=== PATIENT | female | born 1935 | race Caucasian/White ===

== ENCOUNTER → 2017-07-09 09:21 | Outpatient (CLI) | payer MEDICARE, BC ==
[~2017-07-09] VITALS: Ht 160 cm; Wt 67.3 kg
--- NOTE | ~2017-07-09 | HEMODYNAMI ---
PATIENT:MUKESH ADEN MEDICAL RECORD: [id number] : 35 LOCATION:D.CAT ADMISSION DATE: 07/09/17 Generatedon:07/12/201713:49 Patient name: MUKESH ADEN Patient #: [id number] SSN: [id number] : 1935 Date of study: 07/09/2017 Page: Of Hemodynamic Procedure Report Patient Data Patient Demographics Procedure consent was obtained First Name: MUKESH Gender: Female Last Name: KEIKO : 1935 Middle Initial: S Age: 81 year(s) Patient #: [id number] Race: SSN: [id number] Additional ID: [id number] Contact details Address: [address] [place] [address] State: [place] City: [place] Zip code: [address] Past Medical History Allergies Allergen Reaction Date Comments Reported Sulfa drugs 01/18/2015 Other allergy 01/18/2015 cipro Other allergy 01/18/2015 niacin Amoxicillin 01/18/2015 Codeine 01/18/2015 Other allergy 11/17/2016 amoxicillin, cipro, codeine, Niacin, Sulfa Admission Admission Data Admission Date: 07/09/2017 Admission Time: 9:21 Procedure Procedure Types Cath Procedure Diagnostic Procedure [facility] w/Coronaries FFR/IVUS Intra-Coronary IVUS Initial PCI Procedure Coronary Stent Initial Miscellaneous Procedures Moderate Sedation up to 30 minutes Procedure Description Procedure Date Procedure Date: 07/09/2017 Procedure Start Time: 15:35 Procedure End Time: 16:03 Procedure Staff Name Function Douglas Mckeon RT Monitor Patti Lucas RN Nurse Sergei Squires MD Performing Physician Se Marshall RT Scrub Procedure Data Cath Procedure Fluoroscopy Diagnostic fluoroscopy Total fluoroscopy Time: 7.5 time: 7.5 min min Diagnostic fluoroscopy Total fluoroscopy dose: 881 dose: 881 mGy mGy Contrast Material Contrast Material Type Amount (ml) Isovue 300 128 Entry Location Entry Primary Successful Side Size Upsize Upsize Entry Closure Bermeo ccessful Closure Location (Fr) 1 (Fr) 2 (Fr) Remarks Device Remarks Radial Right 6 Fr Mechanical artery Short Compression Estimated blood loss: 10 ml Diagnostic catheters Device Type Used For End Catheter Placement Diagnostic Terumo 5Fr Procedure Bunnell 110cm catheter Procedure Complications No complications Procedure Medications Medication Administration Route Dosage Oxygen NC 2 l/min Lidocaine 2% added to field 20 Heparin Flush Bag added to field 2 bags (1000units/500ml NS) 0.9% NaCl I.V. 100 ml/hr Versed I.V. 1 mg Fentanyl I.V. 50 mcg Versed I.V. 0.5 mg Fentanyl I.V. 25 mcg Heparin Bolus I.V. 4000 units Fentanyl I.V. 25 mcg Radial Cocktail I.A. 1 syringe (Verapomil 2mg/Nitro 400mcg/Heparin 1500units) Versed I.V. 0.5 mg unlisted medication I.V. 20 mg Hemodynamics Rest Heart Rate: 56 (bpm) Snapshots Pre Cath Intra NCS Post Cath Vital Signs Time Heart Resp SPO2 etCO2 VP6bsci NIBP (mmHg) Rhythm Pain Sedation Rate (ipm) (%) (mmHg) (mmHg) Status Level (bpm) 15:27:35 56 19 97 0 0 141/79(0) NSR 0 (11) 10(A) , No pain 15:33:41 56 18 95 0 0 139/74(116) NSR 0 (11) 10(A) , No pain 15:37:57 58 20 94 0 0 118/59(101) NSR 0 (11) 9(A) , No pain 15:42:07 58 17 95 0 0 115/56(94) NSR 0 (11) 9(A) , No pain 15:46:15 65 14 94 0 0 127/61(109) NSR 0 (11) 9(A) , No pain 15:50:27 62 14 95 0 0 140/62(103) NSR 0 (11) 9(A) , No pain 15:54:41 63 16 96 0 0 132/66(113) NSR 0 (11) 9(A) , No pain 15:58:12 62 15 96 0 0 148/69(117) NSR 0 (11) 10(A) , No pain 16:02:26 63 14 96 0 0 156/78(128) NSR 0 (11) 10(A) , No pain Medications Time Medication Route Dose Verified Delivered Reason Note s Effectiveness by by 15:23:25 Oxygen NC 2 l/min Sergei Armstrong used for Shaw Lucas RN procedure 15:23:32 Lidocaine 2% added 20ml Sergei Mai for local to vial Shaw Squires MD anesthetic field 15:23:58 Heparin Flush added 2 bags Sergei Mai used for Bag to Shaw Squires MD procedure (1000units/500ml field NS) 15:24:07 0.9% NaCl I.V. 100 Sergei Armstrong Per physician ml/hr Shaw Lucas RN 15:32:54 Versed I.V. 1 mg Sergei Armstrong for sedation Shaw Lucas RN 15:32:58 Fentanyl I.V. 50 mcg Sergei Armstrong for sedation Shaw Lucas RN 15:36:26 Versed I.V. 0.5 mg Sergei Armstrong for sedation Shaw Lucas RN 15:36:31 Fentanyl I.V. 25 mcg Sergei Armstrong for sedation Shaw Lucas RN 15:37:08 Radial Cocktail I.A. 1 Sergei Mai for (Verapomil syringe Shaw Squires MD vasodilation 2mg/Nitro 400mcg/Hepari 15:40:16 Heparin Bolus I.V. 4000 Sergei Armstrong for veri fied units Shaw Lucas RN anticoagulation with dr squires 15:44:57 Fentanyl I.V. 25 mcg Sergei Armstrong for sedation Shaw Lucas RN 15:50:20 Versed I.V. 0.5 mg Sergei Armstrong for sedation Shaw Lucas RN 16:03:30 Toradol I.V. 20 mg Sergei Armstrong Per physician for Shaw Lucas RN sharp chest pains with deep breath Procedure Log Time Note 15:00:36 Patti Lucas RN sent for patient. Start room use. 15:12:37 Time tracking: Regular hours 15:12:41 Plan of Care:Hemodynamics will remain stable., Cardiac rhythm will remain stable., Comfort level will be maintained., Respiratory function will remain adequate., Patient/ family verbilizes understanding of procedure., Procedure tolerated without complication., Recovers from procedure without complications.. 15:14:10 Patient received from Pre/Post Procedure Room to CCL 1 Alert and oriented. Tansferred to table in Supine position. 15:14:11 Warm blankets applied, and carla hugger turned on for patient comfort. 15:14:12 Correct patient and procedure confirmed by team. 15:14:13 ECG and BP/O2 sat monitors applied to patient. 15:14:13 Signed procedure consent form obtained from patient. 15:23:25 Oxygen 2 l/min NC was administered by Patti Lucas RN; used for procedure; 15:23:32 Lidocaine 2% 20ml vial added to field was administered by Sergei Squires MD; for local anesthetic; 15:23:58 Heparin Flush Bag (1000units/500ml NS) 2 bags added to field was administered by Sergei Squires MD; used for procedure; 15:24:07 0.9% NaCl 100 ml/hr I.V. was administered by Patti Lucas RN; Per physician; 15:24:23 Vital chart was started 15:28:27 Baseline sample Acquired. 15:28:41 Rhythm: sinus bradycardia 15:28:42 Full Disclosure recording started 15:28:56 H&P Date Dictated: 07/07/2017 Within 30 days and on chart., H&P Addendum completed by physician on day of procedure. (MUST COMPLETE FOR ALL OUTPATIENTS). 15:28:57 Pre-op teaching completed and patient verbalized understanding. 15:28:57 Pre-procedure instructions explained to patient. 15:29:13 Family in patients room. 15:29:14 Patient NPO since Midnight. 15:29:16 Is the patient allergic to Iodine/contrast media? No. 15:29:19 Is patient on blood thinner?Yes 15:29:22 ACC The patient was administered the following blood thiners within the last 24 hours: ACCPlavix 15:29:27 Patient diabetic? No. 15:29:31 Previous problem with sedation/anesthesia? No ? 15:29:35 Snore? Yes 15:29:37 Sleep apnea? No 15:29:38 Opens mouth fully? Yes 15:29:38 Deviated septum? No 15:29:39 Sticks out tongue? Yes 15:29:43 Airway obstruction? No ? 15:29:46 Dentures? No ? 15:29:51 Pre procedure: right dorsailis pedis pulse 1+ Palpable, but thready & weak; easily obliterated 15:29:54 Modified Adelfo's test Ulnar < 7 seconds 15:29:56 Patient pain scale 0/10 ?. 15:30:04 IV patent on arrival in left forearm with 0.9% NaCl at [facility]. 15:30:07 Lab results completed and on chart. 15:30:10 Right Radial & Right Groin area was prepped with chlora-prep and draped in sterile fashion 15:30:12 Alarms reviewed by R. N. 15:30:13 Sharps counted by scrub and verified by R.N. 15:32:34 --------ALL STOP TIME OUT------ 15:32:35 Final Timeout: patient, procedure, and site verified with staff and physician. All members of the team are in agreement. 15:32:37 Right Radial & Right Groin site verified by team. 15:32:39 Physical assessment completed. ASA score P 2 - A patient with mild systemic disease as per Sergei Squires MD. 15:32:42 Sedation plan: IV Moderate Sedation Versed, Fentanyl 15::54 Versed 1 mg I.V. was administered by Patti Lucas RN; for sedation; 15:32:58 Fentanyl 50 mcg I.V. was administered by Patti Lucas RN; for sedation; 15:35:20 Zero performed for pressure channel P1 15:35:23 Zero performed for pressure channel P1 15:35:26 Zero performed for pressure channel P1 15:35:29 Zero performed for pressure channel P1 15:35:36 Procedure started. 15:35:42 Local anesthetic to right radial artery with Lidocaine 2% by Sergei Squires MD.INITIAL ACCESS ONLY 15:35:48 Use device set Radial Dx 15:35:50 Tegaderm 4 x 4 opened to sterile field. 15:35:51 Acist Hand Control opened to sterile field. 15:35:52 Acist Manifold opened to sterile field. 15:35:53 Medline Cath Pack opened to sterile field. 15:35:53 Acist Syringe opened to sterile field. 15:35:54 St Galdino 260cm J .035 wire opened to sterile field. 15:35:54 Terumo 6Fr Slender Glidesheath opened to sterile field. 15:35:54 Bag Decanter opened to sterile field. 15:35:55 MBrace Wrist Support opened to sterile field. 15:36:15 A 6 Fr Short sheath was inserted into the Right Radial artery 15:36:26 Versed 0.5 mg I.V. was administered by Patti Lucas RN; for sedation; 15:36:31 Fentanyl 25 mcg I.V. was administered by Patti Lucas RN; for sedation; 15:36:31 A Diagnostic Heliatekumo 5Fr Bunnell 110cm catheter was advanced over the wire and used for Procedure. 15:37:01 LV angiography performed. 15:37:03 LV gram done using COLEMAN 15:37:08 Radial Cocktail (Verapomil 2mg/Nitro 400mcg/Heparin 1500units) 1 syringe I.A. was administered by Sergei Squires MD; for vasodilation; 15:37:12 EF : 55 % 15:37:17 Injector settings: Ml/sec: 7, Volume: 15, 15:37:45 LCA angiography performed. 15:38:32 RCA angiography performed. 15:38:35 Catheter exchanged over wire. 15:38:37 Jaimes Whisper J 300cm 0.014 guide wire opened to sterile field. 15:38:37 Zarpo BasixCompak Inflation Kit opened to sterile field. 15:39:37 Clifton Frontier Eagleye IVUS Catheter opened to sterile field. 15:39:37 Medtronic Launcher 6Fr AR 1.0 guide catheter opened to sterile field. 15:39:48 6 Fr AR 1 guide catheter was inserted over the wire 15:40:16 Heparin Bolus 4000 units I.V. was administered by Patti Lucas RN; for anticoagulation; verified with dr squires 15:41:21 Whisper wire advanced. 15:42:59 Wire advanced across lesion. 15:43:20 IVUS catheter advanced over wire. 15:44:24 IVUS pass to RCA lesion performed. 15:44:27 IVUS catheter removed over wire. 15:44:50 Guide catheter removed. 15:44:50 Wire removed. 15:44:57 Fentanyl 25 mcg I.V. was administered by Patti Lucas RN; for sedation; 15:45:05 Cordis 6FR XBLAD 3.5 guide catheter opened to sterile field. 15:45:14 6 Fr XBLAD 3.5 guide catheter was inserted over the wire 15:45:47 Study PCI Site: [place] Diag1 has 85% stenosis. 15:46:02 ACC Pre-intervention GEOVANNA Flow is 3. 15:46:10 Whisper wire advanced. 15:48:08 Wire advanced across lesion. 15:48:40 Inflation number: 1 A Euphora 2.5 x 20 Balloon was prepped and advanced across the 1st Diag, then inflated to 7 MALACHI for 0:10 (min:sec). 15:49:06 Multiple inflations made at 7 Atms. 15:49:38 Balloon removed over the wire. 15:50:20 Versed 0.5 mg I.V. was administered by Patti Lucas RN; for sedation; 15:51:30 Biofreedom 2.5x24 stent expirations date: 09/14/2017 15:51:34 Inflation Number: 2 A Biofreedom 2.5 x 24 stent (No Cost Implant) was prepped and advanced across the 1st Diag. The stent was deployed at 13 MALACHI for 0:10 (min:sec). 15:51:53 Multiple inflations made at 17 Atms. 15:53:07 Stent catheter was removed intact over wire. 15:53:08 Wire removed. 15:53:09 Guide catheter removed. 15:54:52 Sheath removed intact; hemostasis achieved with Mechanical Compression to the Right Radial artery. 15:55:08 Terumo TR Band Standard opened to sterile field. 15:55:11 Procedure ended.(Physican Out) 15:55:45 Fluoroscopy time 07.50 minutes. 15:55:48 Fluoroscopy dose: 881 mGy 15:55:48 Flurop Dose total: 881 15:55:55 Contrast amount:Isovue 300 128ml. 15:55:57 Sharps counted by scrub and verified by R.N. 15:55:59 TR band inflated with 10cc of air. 15:56:01 Insertion/operative site no bleeding no hematoma. 15:56:02 Post Procedure Pulses reassessed and unchanged 15:56:05 Post-procedure physical assessment completed. ASA score P 2 - A patient with mild systemic disease as per Sergei Squires MD. 15:56:07 Post procedure rhythm: unchanged. 15:56:10 Estimated blood loss: 10 ml 15:56:12 Post procedure instruction explained to patient.Patient verbalizes understanding. 15:56:13 Patient needs reinforcement of post procedure teaching. 15:56:28 Procedure type changed to Cath procedure, Diagnostic procedure, LHC, LHC w/Coronaries, FFR/IVUS, Intra-Coronary IVUS Initial, PCI procedure, Coronary Stent Initial, Miscellaneous Procedures, Moderate Sedation up to 30 minutes 15:56:32 Procedure Complication : No complications 16:02:47 Procedure and supply charges have been captured, reviewed, submitted and are correct. 16:03:18 See physician's report for complete and final results. 16:03:18 Vital chart was stopped 16:03:25 Report given to Pre/Post Procedure Room. 16:03:28 Patient transfered to Pre/Post Procedure Room with Stretcher. 16:03:30 Toradol 20 mg I.V. was administered by Patti Lucas RN; Per physician; for sharp chest pains with deep breath 16:03:31 Full Disclosure recording stopped 16:03:31 Procedure ended. 16:03:35 End room use (Document Last) Intervention Summary Intervention Notes Time ActionType Lesion and Equipment Action# Pressure Duration Attributes Used 15:48:40 Inflate 1st Diag Euphora 1 7 00:10 balloon 2.5 x 20 Balloon 15:51:34 Place stent 1st Diag Biofreedom 2 13 00:10 2.5 x 24 stent (No Cost Implant) Device Usage Item Name Manufacture Quantity Catalog Hospital Part Current Minimal Lot# / Number Charge Number Stock Stock Serial# Code Tegaderm 4 1 [id number] [id number] [id number] 5 x 4 Acist Hand Acist 1 93602 407275 705327 967116 5 Control Medical Systems Inc Acist Acist 1 18413 880222 745133 480806 5 Manifold Medical Systems Inc Acist Acist 1 44435 185698 125862 465789 20 Syringe Medical Systems Inc Medline Cardinal 1 [id number] 010380 45999 851883 5 Cath Pack Health Bag Microtek 1 2001S [id number] 32435 053727 5 DecXL Marketing Inc. Terumo 6Fr Terumo 1 [id number] 758706 319067 389076 [address] Gal[address] St Galdino 1 [id number] 146424 895943 362233 30 260cm J .035 wire MBrace Advanced 1 140-0250-00 460856 70596 556429 5 Wrist Vascular Support Dynamics Diagnostic Terumo 1 77-5462 863242 078358 031967 5 Terumo 5Fr Bunnell 110cm catheter Merit Merit 1 [id number] 114830 499605 782147 15 BasixCompak Medical Inflation Kit Jaimes Jaimes 1 [id number] 497303 842529 327070 5 Whisper J Vascular 300cm 0.014 guide wire Medtronic Medtronic 1 [id number] 155537 32632 560564 1 Launcher 6Fr AR 1.0 guide catheter Clifton Clifton 1 [id number] 562345 727730 483810 8 Frontier Eagleye IVUS Catheter Cordis 6FR Cardinal 1 [id number] 781326 219171 596688 10 XBLAD 3.5 Health guide catheter Euphora 2.5 Medtronic 1 [id number] 927479 829443 726843 5 [id number] x 20 Balloon Biofreedom Biosensors 1 [facility]2-5024 985904 918160 5 [id number] 2.5 x 24 [place] SA stent (No Cost Implant) Terumo TR Terumo 1 [id number] 602368 916430 888246 40 Band Standard Signature Audit [place] Stage Time Signature Unsigned Intra-Procedure 07/09/2017 Douglas Mckeon RT(R) 4:03:53 PM RT(R) 07/09/2017 4:10:44 PM Intra-Procedure 07/09/2017 Douglas Mckeon RT(R) 4:13:54 PM RT(R) 07/12/2017 1:47:38 PM Intra-Procedure 07/12/2017 Douglas Mckeon 1:49:48 PM RT(R) Signatures Monitor : Douglas Mckeon RT Signature : Date : Time : [facility] [address] [place] [address]
[~2017-07-09 09:21] MED LIST: BAYER CHEWABLE81 MG PO; COZAAR100 MG PO; CRANBERRY475 MG PO; ESTRACE 0.5 MG0.5 MG PO; FLAXSEED OIL1000 MG PO; IMDUR60 MG PO; ISOSORBIDE MONO60 M1 PO; LIPITOR40 MG PO; MECLIZINE HCL12.5 MG PO; NORVASC5 MG PO; OCUVITE TABLET1 TA1 PO; PLAVIX75 MG PO; PROTONIX40 MG PO; RELAFEN500 MG PO; TENORMIN50 MG PO; TIROSINT75 MCG PO; TIROSINT88 MCG PO; VITAMIN D31000 UNI2 PO; ZOVIRAX800 MG PO
[2017-07-09 11:20] VITALS: BP 150/82; Ht 160 cm; Wt 67.3 kg
[2017-07-09 14:44] LABS: BASOPHILS 0.4 % (0-2); HEMOGLOBIN 12.6 g/dL (12-16); IMMATURE GRANULOCYTES 0.2 % (0-5); LYMPHOCYTES 43.9 % (15-50); MCH 31.8 pg (26.0-34.0); MCHC 34.1 g/dL (31.0-37.0); MCV 93.4 fL (80.0-100.0); MEAN PLATELET VOLUME 10.8 fL (7.4-10.4); NEUTROPHILS 41.5 % (40-80); PLATELET COUNT 141 10x3/uL (130-400); RBC 3.96 10x6/uL (4.00-5.40); WBC 4.5 10x3/uL (4.8-10.8)
[2017-07-09 14:45] LABS: CALC OSMOLALITY 283 mosm/kg (275-300); CALCIUM 8.9 mg/dL (8.5-10.1); CARBON DIOXIDE 28.6 mmol/L (21.0-32.0); CHLORIDE - SERUM 107 mmol/L (98-107); CKMB 0.1 U/L (0.0-3.6); CREATINE KINASE 80 UL (21-215); GLUCOSE 98 mg/dL (74-106); SODIUM 142 mmol/L (136-145); UREA NITROGEN 16 mg/dL (7-18); eGFR NON AFRICAN AMERICAN 56 mL/min (90-120)
[2017-07-09 14:46] LABS: TROPONIN-I < 0.017 ng/mL (0.000-0.060)
--- NOTE | 2017-07-09 16:30 | NUR ---
RIGHT WRIST- CDI, NO BLEEDING OR HEMATOMA AT SITE, AT SIDE, DENIES NEEDS, PAIN IN CHEST SOME BETTER.
--- NOTE | 2017-07-09 17:00 | NUR ---
NO CHANGES IN ASSESSMENT, DIET GURDEEP. AT SIDE
--- NOTE | 2017-07-09 19:55 | NUR ---
IV D'C WITH CATH TIP INTACT, WRITTEN AND VERBAL INSTRUCTIONS GIVEN TO PT AND -VERBAL UNDERSTANDING NOTED. TR BAND OFF- NO HEMATOMA OR BLEEDING AT SITE, BAND AID APPLIED AND BRACE REAPPLIED.
--- NOTE | 2017-07-16 09:42 | OP ---
PATIENT NAME: MUKESH ADEN MEDICAL RECORD: [id number] :35 LOCATION:D.CAT ADMISSION DATE: SURGEON: GREYSON SHERIFF MD DATE OF OPERATION: 07/09/2017 PROCEDURES: 1. PTCA stent LAD diagonal. 2. Intravascular ultrasound. 3. Left heart catheterization. 4. Selective coronary angiography. 5. Left ventriculogram. INDICATION: Chest pain compatible with angina. PROCEDURE IN DETAIL: After informed consent was obtained and after detailed explanation of risks, benefits as well as alternative therapies, the patient elected to proceed with angiogram and angioplasty. The right radial area was prepped and draped in normal sterile fashion. The right radial artery was cannulated via modified Seldinger technique with placement of 6-Indian sheath. All catheters exchanged through this sheath. FINDINGS: The left ventriculogram was performed in standard 30-degree COLEMAN view, reveals good cardiac wall motion throughout all segments. Overall ejection fraction estimated 60%. SELECTIVE CORONARY ANGIOGRAPHY: 1. Left main showed no significant angiographic disease. 2. Left anterior descending has previously placed stents. The LAD is widely patent. There is a stent in the diagonal, this has 85% in-stent restenosis. 3. Left circumflex has moderate irregularities, but no flow-limiting stenosis. 4. Right coronary has moderate irregularities, but no flow-limiting stenosis. PTCA STENT OF THE LAD DIAGONAL: The stent used was a 2.5 x 24 mm BioFreedom. Result was 0% residual stenosis. OVERALL IMPRESSION: Successful percutaneous transluminal coronary angioplasty stent of the left anterior descending diagonal going from 85% in-stent restenosis to 0% residual stenosis. This is a 2.5-mm vessel, 20 mm-lesion, GEOVANNA 3 flow before and after the intervention. TRANSINT:[id number] Voice Confirmation ID: [id number] DOCUMENT ID: [id number] GREYSON SHERIFF MD at 0942 CC: [id number] DICTATION DATE: 07/09/17 1605 BRAIDING OPERATOR: 07/09/17 2314 DEP CLI 07/09/17 [place] [id number]
== END | disposition home or self-care (01) ==
LOC: D.CATH 09:21
PROVIDERS: Internal Medicine Interventional Cardiology
DX: I25.119 Atherosclerotic heart disease of native coronary artery with unspecified angina pectoris (principal); I10 Essential (primary) hypertension; Z00.6 Encounter for examination for normal comparison and control in clinical research program; E78.5 Hyperlipidemia, unspecified; Z01.812 Encounter for preprocedural laboratory examination
CPT/HCPCS: 93458; 92978; C9600

== ENCOUNTER → 2017-08-19 17:07 | Outpatient (CLI) | payer MEDICARE, BC ==
[2017-07-09 11:20] VITALS: BMI 26.2
== END | disposition home or self-care (01) ==
LOC: D.MAMMO 08-04 14:45
DX: Z12.31 Encounter for screening mammogram for malignant neoplasm of breast (principal)

== ENCOUNTER 2018-04-10 09:21 | Inpatient (IN) | payer MEDICARE, BC ==
[~2018-04-10] VITALS: Ht 160 cm; Wt 68.6 kg
--- NOTE | ~2018-04-10 | HEMODYNAMI ---
PATIENT:MUKESH ADEN MEDICAL RECORD: [id number] : 35 LOCATION:[facility] D.2115 [facility]# [id number] ADMISSION DATE: 04/10/18 Generatedon:04/11/201816:04 Patient name: MUKESH ADEN Patient #: [id number] SSN: [id number] : 1935 Date of study: 04/11/2018 Page: Of Hemodynamic Procedure Report Patient Data Patient Demographics Procedure consent was obtained First Name: MUKESH Gender: Female Last Name: KEIKO : 1935 Middle Initial: S Age: 82 year(s) Patient #: [id number] Race: SSN: [id number] Additional ID: [id number] Contact details [address]: [address] [place] [address] State: [place] City: [place] Zip code: [address] Past Medical History Allergies Allergen Reaction Date Comments Reported Sulfa drugs 01/18/2015 Other allergy 01/18/2015 cipro Other allergy 01/18/2015 niacin Amoxicillin 01/18/2015 Codeine 01/18/2015 Other allergy 11/17/2016 amoxicillin, cipro, codeine, Niacin, Sulfa Other allergy 04/11/2018 cipro Admission Admission Data Admission Date: 04/10/2018 Admission Time: 12:40 Admit Source: Other Room #: D.2115 Lab Results Lab Result Date: 04/11/2018 Lab Result Time: 0:00 Biochemistry Name Units Result Min Max BUN mg/dl 16 --(---*)-- 7 18 Creatinine mg/dl 1 --(--*-)-- 0.6 1.3 Procedure Procedure Types Cath Procedure Diagnostic Procedure [facility] w/Coronaries FFR/IVUS Intra-Coronary IVUS Initial Procedure Description Procedure Date Procedure Date: 04/11/2018 Procedure Start Time: 15:40 Procedure End Time: 16:02 Procedure Staff Name Function Sergei Squires MD Performing Physician Abhi Andrea RT Monitor Cori Mayfield RT Scrub Armond Clifton RN Nurse Procedure Data Cath Procedure Fluoroscopy Diagnostic fluoroscopy Total fluoroscopy Time: 3.4 time: 3.4 min min Diagnostic fluoroscopy Total fluoroscopy dose: dose: 144.39 mGy 144.39 mGy Contrast Material Contrast Material Type Amount (ml) Isovue 300 56 Entry Location Entry Primary Successful Side Size Upsize Upsize Entry Closure Bermeo ccessful Closure Location (Fr) 1 (Fr) 2 (Fr) Remarks Device Remarks Radial Right 6 Fr Mechanical artery Short Compression Estimated blood loss: 10 ml Diagnostic catheters Device Type Used For End Catheter Placement DIAGNOSTIC AR 2 MOD 5 Fr Procedure catheter ([id number]) Procedure Medications Medication Administration Route Dosage 0.9% NaCl I.V. 100 ml/hr Oxygen etCO2 Nasal cannula 2 l/min Heparin Flush Bag added to field 2 bags (1000units/500ml NS) Lidocaine 2% added to field 20 Radial Cocktail added to field 1 syringe (Verapomil 2mg/Nitro 400mcg/Heparin 1500units) Versed I.V. 1 mg Fentanyl I.V. 50 mcg Radial Cocktail I.A. 1 syringe (Verapomil 2mg/Nitro 400mcg/Heparin 1500units) Heparin Bolus I.V. 4000 units Hemodynamics Rest Pre Cath Intra NCS Post Cath Vital Signs Time Heart Resp SPO2 etCO2 NIBP (mmHg) Rhythm Pain Sedation Rate (ipm) (%) (mmHg) Status Level (bpm) 15:27:50 72 20 92 21.7 137/67(90) NSR 0 (11) 10(A) , No pain 15:32:04 69 13 93 32.2 129/69(93) NSR 0 (11) 10(A) , No pain 15:36:12 68 13 94 37.4 139/74(99) NSR 0 (11) 10(A) , No pain 15:40:26 72 14 96 35.9 147/70(104) NSR 0 (11) 10(A) , No pain 15:44:34 70 15 92 38.1 106/62(86) NSR 0 (11) 10(A) , No pain 15:48:42 83 15 91 35.9 118/59(81) NSR 0 (11) 10(A) , No pain 15:53:31 78 14 92 38.9 137/69(101) NSR 0 (11) 10(A) , No pain 15:57:38 73 4 96 36.7 135/72(96) NSR 0 (11) 10(A) , No pain 16:01:48 72 13 92 37.4 137/69(98) NSR 0 (11) 10(A) , No pain Medications Time Medication Route Dose Verified Delivered Reason Not es Effectiveness by by 15:25:40 0.9% NaCl I.V. 100 Armond Armond Per physician ml/hr Elodia Clifton RN RN 15:25:49 Oxygen etCO2 2 l/min Armond Armond Per physician Nasal Elodia Clifton cannula RN RN 15:26:00 Heparin Flush added 2 bags Armond Armond used for Bag to Elodia Clifton procedure (1000units/500ml field RN RN NS) 15:26:13 Lidocaine 2% added 20ml Armond Armond for local to vial Elodia Clifton anesthetic field MENESES RN 15:26:25 Radial Cocktail added 1 Armond Armond used for (Verapomil to syringe Elodia Clifton procedure 2mg/Nitro field MENESES RN 400mcg/Heparin 1500units) 15:40:45 Versed I.V. 1 mg Armond Armond for sedation Elodia Cilfton RN RN 15:40:53 Fentanyl I.V. 50 mcg Armond Armond for sedation Elodia Clifton RN RN 15:45:44 Radial Cocktail I.A. 1 Armond Sergei for (Verapomil syringe Elodia Squires MD vasodilation 2mg/Nitro RN 400mcg/Heparin 1500units) 15:53:01 Heparin Bolus I.V. 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 14:55:26 Abhi KHAN(R) (CV) sent for patient. Start room use. 15:04:41 Patient received from Med II to CCL 3 Alert and oriented. Tansferred to table in Supine position. 15:04:42 Warm blankets applied, and carla hugger turned on for patient comfort. 15:04:43 Correct patient and procedure confirmed by team. 15:04:45 ECG and BP/O2 sat monitors applied to patient. 15:05:27 H&P Date Dictated: 04/10/2018 Within 30 days and on chart.. 15:05:30 Pre-procedure instructions explained to patient. 15:05:31 Pre-op teaching completed and patient verbalized understanding. 15:05:32 Family in patients room. 15:05:33 Patient NPO since Midnight. 15:05:48 Patient allergic to Other allergycipro 15:05:50 Is the patient allergic to Iodine/contrast media? No. 15:18:46 Patient diabetic? No. 15:18:50 Patient not . Patient is over age 55. 15:18:51 ----Pre-sedation anethsthesia assessment.---- 15:19:30 Previous problem with sedation/anesthesia? No ? 15:19:32 Snore? Yes 15:19:33 Sleep apnea? No 15:19:34 Deviated septum? No 15:19:35 Opens mouth fully? Yes 15:19:36 Sticks out tongue? Yes 15:19:40 Airway obstruction? No ? 15:19:47 Dentures? No ? 15:19:52 Pre procedure: right dorsailis pedis pulse 2+ Normal; easily identifiable; not easily obliterated 15:19:57 Patient pain scale 0/10 ?. 15:20:04 IV patent on arrival in left antecubital with 0.9% NaCl at O. 15:20:13 Right Radial & Right Groin area was prepped with chlora-prep and draped in sterile fashion 15:20:17 Alarms reviewed by R. N. 15:20:17 Sharps counted by scrub and verified by R.N. 15:20:38 Use device set Radial Dx or PCI 15:20:40 ACIST Syringe (72223) opened to sterile field. 15:20:41 Medline Cath Pack ([id number]) opened to sterile field. 15:20:42 Bag Decanter (2002S) opened to sterile field. 15:20:43 DIAGNOSTIC WIRE .035 260cm J wire (136269) opened to sterile field. 15:20:43 ACIST Hand Control (12615) opened to sterile field. 15:20:44 ACIST Manifold (63289) opened to sterile field. 15:20:45 Tegaderm 4 x 4 (1626W) opened to sterile field. 15:20:47 MBrace Wrist Support ([id number]) opened to sterile field. 15:20:50 SHEATH 6Fr Prelude Radial ([id number]) opened to sterile field. 15::59 Lab Result : BUN 16 mg/dl 15::59 Lab Result : Creatinine 1 mg/dl 15:22:15 Physician paged 15:25:19 Zero performed for pressure channel P1 15::40 0.9% NaCl 100 ml/hr I.V. was administered by Armond Clifton RN; Per physician; 15:25:49 Oxygen 2 l/min etCO2 Nasal cannula was administered by Armond Clifton RN; Per physician; 15:26:00 Heparin Flush Bag (1000units/500ml NS) 2 bags added to field was administered by Armond Clifton RN; used for procedure; 15::13 Lidocaine 2% 20ml vial added to field was administered by Armond Clifton RN; for local anesthetic; 15:26:25 Radial Cocktail (Verapomil 2mg/Nitro 400mcg/Heparin 1500units) 1 syringe added to field was administered by Armond Clifton RN; used for procedure; 15:26:40 Vital chart was started 15:33:49 Physician arrived 15:33:49 --------ALL STOP TIME OUT------ 15:33:50 Final Timeout: patient, procedure, and site verified with staff and physician. All members of the team are in agreement. 15:33:55 Right Radial & Right Groin site verified by team. 15:33:58 Physical assessment completed. ASA score P 2 - A patient with mild systemic disease as per Sergei Squires MD. 15:34:02 Sedation plan: IV Moderate Sedation Medication:Versed, Fentanyl 15:39:28 Procedure started. 15:39:29 Full Disclosure recording started 15:40:45 Versed 1 mg I.V. was administered by Armond Lorigan RN; for sedation; 15:40:53 Fentanyl 50 mcg I.V. was administered by Armond Clifton RN; for sedation; 15:40:53 Local anesthetic to right radial artery with Lidocaine 2% by Sergei Squires MD.INITIAL ACCESS ONLY 15:44:11 A 6 Fr Short sheath was inserted into the Right Radial artery 15:45:44 Radial Cocktail (Verapomil 2mg/Nitro 400mcg/Heparin 1500units) 1 syringe I.A. was administered by Sergei Squires MD; for vasodilation; 15:45:56 A DIAGNOSTIC AR 2 MOD 5 Fr catheter ([id number]) was advanced over the wire and used for Procedure. 15:46:31 LV hemodynamics recorded. 15:46:33 LV gram done using COLEMAN 15:46:44 EF : 60 % 15:46:51 RCA angiography performed. 15:46:53 Catheter removed. 15:47:28 GUIDE 6FR XBLAD 3.5 catheter ([id number]) opened to sterile field. 15:47:43 6 Fr XBLAD 3.5 guide catheter was inserted over the wire 15:49:09 LCA angiography performed. 15:51:14 Proceeding to intervention. 15:51:31 INFLATOR Merit BasixCompak (GW3969) opened to sterile field. 15:52:03 CHOICE PT Extra Support 182cm wire ([id number]) opened to sterile field. 15:52:10 [place] IVUS Catheter (82255N) opened to sterile field. 15:52:25 CHOICE wire advanced. 15:53:01 Heparin Bolus 4000 units I.V. was administered by Armond Clifton RN; for anticoagulation; 15:53:02 FFR/IVUS 15:53:02 IVUS catheter advanced over wire. 15:53:36 IVUS pass to Circ lesion performed. 15:53:38 IVUS catheter removed over wire. 15:54:02 Procedure type changed to Cath procedure, Diagnostic procedure, LHC, [facility] w/Coronaries, FFR/IVUS, Intra-Coronary IVUS Initial 15:55:37 CABG CONSULT 15:55:49 TR BAND Standard ([id number]) opened to sterile field. 15:56:06 Wire removed. 15:56:07 Guide catheter removed. 15:56:29 Sheath removed intact; hemostasis achieved with Mechanical Compression to the Right Radial artery. 15:56:34 Procedure ended.(Physican Out) 15:57:28 Fluoroscopy time 03.40 minutes. 15:57:34 Flurop Dose total: 144.39 15:57:34 Fluoroscopy dose: 144.39 mGy 15:57:40 Contrast amount:Isovue 300 56ml. 15:57:42 Sharps counted by scrub and verified by R.N. 15:58:46 TR band inflated with 14cc of air. 15:58:51 Insertion/operative site no bleeding no hematoma. 15:59:07 Post right radial artery:stable 16:00:08 Post-procedure physical assessment completed. ASA score P 2 - A patient with mild systemic disease as per Sergei Squires MD. 16:00:13 Post procedure rhythm: sinus rhythm 16:00:17 Estimated blood loss: 10 ml 16:00:19 Post procedure instruction explained to patient.Patient verbalizes understanding. 16:00:20 Patient needs reinforcement of post procedure teaching. 16:00:21 Procedure and supply charges have been captured, reviewed, submitted and are correct. 16:02:14 Vital chart was stopped 16:02:14 See physician's report for complete and final results. 16:02:17 Report given to PCU. 16:02:21 Patient transfered to PCU with Bed. 16:02:23 Procedure ended. 16:02:23 Full Disclosure recording stopped 16:02:27 End room use (Document Last) Device Usage Item Name Manufacture Quantity Catalog Number Hospital Part Current M inimal Lot# / Charge Number Stock Stock Serial# Code ACIST Syringe Acist 1 23879 030460 240137 237374 2 0 (27338) Medical Systems Inc Medline Cath Cardinal 1 [id number] 128092 49980 526779 5 Pack Health ([id number]) Bag Decanter Microtek 1 670734 61027 792941 5 () Medical Inc. DIAGNOSTIC WIRE St [place] 1 976599 116148 048624 533052 3 0 .035 260cm J wire (590430) ACIST Hand Acist 1 18400 856961 941298 897598 5 Control (06754) Medical Systems Inc ACIST Manifold Acist 1 19545 266290 171156 348151 5 (82329) Medical Systems Inc Tegaderm 4 x 4 3M 1 1626W 774822 405062 828756 5 (1626W) MBrace Wrist Advanced 1 140-0250-00 815518 12155 372227 5 Support Vascular (256710540) Dynamics SHEATH 6Fr Merit 1 [id number] 861687 802298 852082 5 Prelude Radial Medical ([id number]) DIAGNOSTIC AR 2 Cardinal 1 [id number] 086441 306843 332264 2 0 MOD 5 Fr Health catheter (276535C) GUIDE 6FR XBLAD Cardinal 1 13359389 248277 275138 648404 1 0 3.5 catheter Health (28088855) INFLATOR Merit Merit 1 JC0685 627988 372349 005462 1 5 Plain Vanilla Medical (HD3245) CHOICE PT Extra Baker 1 [id number] 602467 812924 643596 5 Support 182cm Scientific wire ([id number]) [place] 1 01141Z 367918 672941 026800 8 [place] IVUS Catheter (20306U) TR BAND Terumo 1 [id number] 717178 261552 730177 4 0 Standard ([id number]) Signature Audit [place] Stage Time Signature Unsigned Intra-Procedure 04/11/2018 Abhi Andrea 4:04:03 PM RT(R) (CV) Signatures Monitor : Abhi Andrea RT Signature : Date : Time : [facility] [address] [facility] [place] [address]
--- NOTE | ~2018-04-10 | OP ---
PATIENT NAME: MUKESH ADEN MEDICAL RECORD: [id number] :35 LOCATION:D.M2 D.2115 ADMISSION DATE:04/12/18 SURGEON: GREYSON SHERIFF MD DATE OF OPERATION: 04/11/2018 PROCEDURES: 1. Left heart catheterization. 2. Selective coronary angiography. 3. Left ventriculogram. 4. Intravascular ultrasound. INDICATION: Angina, unstable. DESCRIPTION OF PROCEDURE: After informed consent obtained and after a detailed explanation of risks, benefits as well as alternative therapies, the patient elected to proceed with angiogram and heart catheterization. The right radial area was prepped and draped in normal sterile fashion. Right radial artery was cannulated via modified Seldinger technique with placement of 6-Macanese sheath. All catheters exchanged through this sheath. FINDINGS: Left ventriculogram was performed in a standard 30-degree COLEMAN view, reveals good cardiac wall motion throughout all segments. Overall ejection fraction estimated 60%. SELECTIVE CORONARY ANGIOGRAPHY: 1. Left main is with no significant angiographic disease. 2. Left anterior descending has a 95% stenosis at the juncture of the LAD and second diagonal. The second diagonal has previously placed stents. There is 95% stenosis of this as well. 3. Left circumflex has moderate irregularities, but no flow-limiting stenosis. There was question of an ostial lesion in the circumflex; however, no significant stenosis confirmed by intravascular ultrasound. 4. The right coronary artery has moderate irregularities, but no flow-limiting stenosis. OVERALL IMPRESSION: A 95% stenosis of the LAD and diagonal, multiple previously placed stents that are in this area. At this time, consider bypass surgery. TRANSINT:[id number] Voice Confirmation ID: [id number] DOCUMENT ID: [id number] GREYSON SHERIFF MD at 1849 CC: [id number] DICTATION DATE: 04/11/18 1606 DIESEL MECHANIC CONSTRUCTION: 04/11/18 1655 ADM IN [place] [address] [place] [address]
--- NOTE | ~2018-04-10 | OP ---
PATIENT NAME: MUKESH ADEN MEDICAL RECORD: [id number] :35 LOCATION:[facility] D.CV03 ADMISSION DATE:04/12/18 SURGEON: DURAN WINKLER MD DATE OF OPERATION: 04/15/2018 SURGEON: Duran Winkler MD CLOTH WINDER: Stewart Camara MD ANESTHESIA: General endotracheal, Dr. Lundy. OPERATION PERFORMED: Coronary artery bypass utilizing left internal thoracic to left anterior descending and reverse saphenous vein graft to the second diagonal coronary artery. PREOPERATIVE DIAGNOSIS: Intermediate coronary syndrome with unstable angina. POSTOPERATIVE DIAGNOSIS: Intermediate coronary syndrome with unstable angina. INDICATION FOR OPERATION: Severe occlusive coronary artery disease with intermittent coronary syndrome. FINDINGS OF THE OPERATION: The left internal thoracic was satisfactory for grafting. The reverse saphenous vein segment was also adequate for grafting. The target vessels were small caliber; however, satisfactory for grafting. ESTIMATED BLOOD LOSS: Cell Saver was used. DESCRIPTION OF PROCEDURE: After informed consent and adequate preoperative medication evaluation, the patient was brought to the operating room, placed on the table in the supine position. After induction of general endotracheal anesthesia and application of appropriate monitoring devices, the chest, neck, abdomen, and both legs were prepped and draped in sterile field utilizing Betadine scrub, alcohol, and Betadine solution. A Betadine-impregnated drape was also used. Saphenous vein was harvested from the left leg and the right leg was inadequate for grafting. The vein was prepared and legs closed over drains utilizing 3-0 Vicryl and skin maureen. A median sternotomy incision was used and dissection carried down to the fascia. Hemostasis maintained with electrocautery. Sternum was divided. Innominate vein was identified and protected. Left internal thoracic was taken down and prepared for grafting. The patient was given a calculated dose of heparin, cannulated in standard fashion utilizing 1 aortic, one 2-stage cannula in atrium and inferior vena cava. The patient placed on cardiopulmonary bypass, cooled to 32 degrees centigrade. A cross clamp was placed proximal to the aortic cannula and the patient was given cardioplegic solution through the aortic root. The patient was given a warm induction and cold maintenance. The patient was given cold intermittent cardioplegic solution throughout the procedure, either through the grafts, the root or a combination of both. The first vessel to be grafted was the diagonal, was grafted end-to-side utilizing a running 7-0 Prolene suture. Grafts were measured back to the aorta and a proximal anastomosis fashioned utilizing running 6-0 Prolene suture. Next, left internal thoracic was brought through a hole in the pericardium and sutured to left anterior descending end-to-side utilizing a running 8-0 Prolene suture. Pedicle was attached to epicardium with 6-0 Prolene suture. All maneuvers to remove trapped air were performed. The patient was given warm cardioplegic reperfusion and controlled OPERATIVE REPORT [id number] MUKESH ADEN S reperfusion. The patient rewarmed to 37 degrees centigrade. Two atrial and 2 ventricular pacing wires were placed in the heart and brought through the epigastric area. The patient was weaned from cardiopulmonary bypass. After being stable off bypass, he was given calculated dose of protamine to reverse the heparin. Hemostasis was achieved. A #40 right angle and #36 chest tubes were brought in through the epigastric area and placed in mediastinum. A separate Nathan drainage tube was placed in the left hemithorax and connected to suction. The chest was again irrigated. Instrument count and sponge count were correct times 2. Chest closed in layers utilizing #7 wire on the sternum, #2 Vicryl on linea alba and pectoralis fascia. Subcutaneous tissue was approximated with 3-0 Vicryl and skin approximated with 3-0 subcuticular Vicryl. Sterile dressings were applied. The patient tolerated the procedure well and transferred to the CV ICU in satisfactory condition. TRANSINT:[id number] Voice Confirmation ID: [id number] DOCUMENT ID: [id number] DURAN WINKLER MD CC: [id number] DICTATION DATE: 04/15/18 1342 SOFTWARE SECURITY CONSULTANT: 04/15/18 1758 ADM IN [place] [id number] [place] [address]
--- NOTE | ~2018-04-10 | TEE ---
PATIENT:MUKESH ADEN MEDICAL RECORD: [id number] LOCATION:[place] [address] AGE OF PATIENT: 82 ADMISSION DATE: 04/12/18 SEX: F REFERRING PHYSICIAN: INTERPRETING PHYSICIAN: GREYSON SQUIRES MD TRANSESOPHAGEAL ECHOCARDIOGRAM Date: 04/15/18 [place]INT[place] CHARGE Y INDICATIONS: CABG PREMEDICATIONS: PATIENT'S RESPONSE PROCEDURE DOPPLER MEASUREMENTS: LVIT LA PA RA LVOT RVOT Asc. Ao AV Gradient Peak AV Mean AV Area MV Gradient Peak MV Mean MV Area INTERPRETATION: LVd: 3.6 cm LVs: 2.8 cm Doppler: 2-D: COLOR FLOW DOPPLER NORMAL SALINE STUDY: MISCELLANOUS: DIAGNOSIS: PLAN: Undercar Specialist:1 Dr. Squires Barrel Marker: Petr ALCAZAR COMMENTS: DATE OF SERVICE: PROCEDURE: Preop evaluation of valvular structures during coronary artery bypass graft surgery. FINDINGS: 1. Left ventricular chamber size is within normal limits. Left ventricular systolic function is normal. Overall ejection fraction estimated at 60%. 2. Left atrium, right atrium, and right ventricle chamber sizes are within TRANSESOPHAGEAL ECHOCARDIOGRAM REPORT [id number] MUKESH ADEN normal limits. 3. Valvular structures have normal structure and motion. 4. Doppler interrogation reveals only mild mitral regurgitation, mild tricuspid regurgitation, and mild aortic insufficiency. No other valvular insufficiency or stenosis. 5. No evidence of pericardial effusion or left ventricular thrombus. TRANSINT:[id number] Voice Confirmation ID: [id number] DOCUMENT ID: [id number] at 1218 CC: [id number] DICTATION DATE: 04/19/18918 PRESSFITTER: 04/19/182241 DIS IN 04/21/18 [place] [id number] [place] [id number]
--- NOTE | ~2018-04-10 | CN ---
PATIENT NAME:MUKESH ADEN MEDICAL RECORD: [id number] : 35 LOCATION:[facility] ADMIT DATE: 04/12/18 ACCOUNT: [id number] CONSULTING PHYSICIAN: KAIN CANTRELL MD REFERRING PHYSICIAN: GREYSON SHERIFF MD DATE OF CONSULTATION: 04/14/2018 DATE OF ADMISSION: 04/12/2018. REASON FOR CONSULTATION: Medical management. HISTORY OF PRESENT ILLNESS: The patient is an 82-year-old female with longstanding history of having arteriosclerotic heart disease. The patient had stated that approximately 10 days ago, she developed pain in the left upper arm, which resolved at night. Over the weekend, she developed substernal chest pain with arm pain. She presented to the Emergency Room for evaluation. She underwent cardiac catheterization and found to have stenosis from prior stent placement. It was felt she should undergo coronary artery bypass grafting. PAST MEDICAL HISTORY: Significant for having coronary artery bypass grafting approximately 20 years ago. She has also had numerous stents. She has had a hysterectomy, tonsillectomy. She has had hypothyroidism, hypertension, hyperlipidemia, rheumatoid arthritis. She had a bladder tuck times 2, cataract surgery. FAMILY HISTORY: Heart disease runs in her family, mother, father, sister. Mother at 85 years of age. Father at 65 years of age of coronary artery disease. ALLERGIES: She is allergic to AMOXICILLIN, CEFTIN, CIPRO, CODEINE, DOXYCYCLINE, GABAPENTIN, LEVAQUIN, NIACIN, SULFA, Z-CINDY. MEDICATIONS: Include amitriptyline 25 mg p.o. q.h.s., amlodipine 5 mg once a day, aspirin 81 mg once a day, Lipitor 40 mg once a day, carvedilol 6.25 b.i.d., estradiol 0.5 mg once a day, isosorbide mononitrate ER 60 mg once a day, levothyroxine 75 mcg once a day, losartan 100 mg once a day, pantoprazole 40 mg once a day, vitamin D 1000 international units once a day. REVIEW OF SYSTEMS: CONSTITUTIONAL: She denies any headaches, seizure or syncope. She denies change in visual or auditory acuity. PULMONARY: She denies any shortness of breath, cough, congestion, history of TB, asthma, or bronchitis. CARDIOVASCULAR: She has had no palpitation, PND or orthopnea. The patient has reported chest pain, but has not had any since her admission. GASTROINTESTINAL: No chronic nausea, vomiting, melena, or hematochezia. GENITOURINARY: No urgency, frequency, or dysuria. PHYSICAL EXAMINATION: VITAL SIGNS: Today, she is currently alert. She is oriented times 3. Her pulse is 64, respirations are 18, her blood pressure is 126/45. HEENT: Head is normocephalic. No lesions. Ears: TMs clear. Eyes: Pupils equal, round, reactive to light. Her extraocular movements are intact. Her nasal cavity, oral cavity, oropharynx clear. NECK: Supple. There is no adenopathy. CONSULT REPORT [id number] MUKESH ADEN HEART: Has a regular rate and rhythm without murmurs, gallops or rubs. LUNGS: Clear. ABDOMEN: Soft, bowel sounds positive. EXTREMITIES: Lower extremities have no edema. IMAGING: On admission, the patient's chest x-ray showed no acute cardiopulmonary disease. On the 04/12/2018, she had a carotid Doppler, which showed no evidence of significant stenosis. ASSESSMENT: Unstable angina, history of arteriosclerotic heart disease, numerous stentings, previous bypass surgery, hyperlipidemia, hypertension, and hypothyroidism. PLAN: It is felt the patient is stable and can proceed with coronary artery bypass grafting on Wednesday. Thanks for the consultation. We will follow with you. TRANSINT:[id number] Voice Confirmation ID: [id number] DOCUMENT ID: [id number] KAIN CANTRELL MD at 1447 CC: [id number] DICTATION DATE: 04/14/18708 SALON SALES CONSULTANT: 04/14/18 1214 ADM IN [place] [id number] [place] [id number]
[2018-04-10 10:08] LABS: BASOPHILS 0.4 % (0-2); EOSINOPHILS 9.3 % (0-7); HEMATOCRIT 38.3 % (36.0-48.0); HEMOGLOBIN 13.1 g/dL (12-16); IMMATURE GRANULOCYTES 0.2 % (0-5); LYMPHOCYTES 42.9 % (15-50); MCH 31.9 pg (26.0-34.0); MCHC 34.2 g/dL (31.0-37.0); MCV 93.2 fL (80.0-100.0); MEAN PLATELET VOLUME 9.7 fL (7.4-10.4); MONOCYTES 8.7 % (2-11); NEUTROPHILS 38.5 % (40-80); PLATELET COUNT 150 10x3/uL (130-400); RBC 4.11 10x6/uL (4.00-5.40); RDW 13.6 % (11.5-14.5); WBC 4.5 10x3/uL (4.8-10.8)
[2018-04-10 10:26] LABS: ALBUMIN 3.5 g/dL (3.4-5.0); ALKALINE PHOSPHATASE 78 U/L (46-116); ALT (SGPT) 18 U/L (10-68); BILIRUBIN - TOTAL 0.49 mg/dL (0.2-1.3); CALC OSMOLALITY 284 mosm/kg (275-300); CALCIUM 8.9 mg/dL (8.5-10.1); CARBON DIOXIDE 25.9 mmol/L (21.0-32.0); CHLORIDE - SERUM 106 mmol/L (98-107); CREATININE - SERUM 1.1 mg/dL (0.6-1.3); GLUCOSE 100 mg/dL (74-106); POTASSIUM - SERUM 4.2 mmol/L (3.5-5.1); PROTEIN - SERUM 7.4 g/dL (6.4-8.2); SODIUM 142 mmol/L (136-145); UREA NITROGEN 17 mg/dL (7-18); eGFR NON AFRICAN AMERICAN 50 mL/min (90-120)
[2018-04-10 10:27] LABS: INR 0.93 (0.85-1.17); PROTIME 12.1 SECONDS (11.6-15.0)
[2018-04-10 10:28] LABS: D-DIMER-QUANTITATIVE 0.64 ug/mLFEU (0.20-0.54)
[2018-04-10 10:34] LABS: CHOL - HDL RATIO 2.7 ratio (2.3-4.1); CHOLESTEROL, TOTAL 203 mg/dL (0-200); CKMB 0.3 U/L (0.0-3.6); CREATINE KINASE 73 UL (21-215); HDL CHOLESTEROL 74 mg/dL (32-96); LDL CHOLESTEROL 97 mg/dL (0-100); LDL-HDL RATIO 1.3 ratio (1.5-3.5); TRIGLYCERIDE 160 mg/dL (30-200)
[2018-04-10 10:35] LABS: TROPONIN-I < 0.017 ng/mL (0.000-0.060)
[2018-04-10 13:32] VITALS: BP 147/82; BMI 25.7
[2018-04-10] MEDS ORDERED: SYNTHROID88 MCG PO (13:47)
[2018-04-10] MEDS ORDERED: COREG12.5 MG PO (13:57)
[2018-04-10 15:39] VITALS: BP 151/64
[2018-04-10 20:00] VITALS: BP 141/70
[2018-04-11 04:00] VITALS: BP 127/68
[2018-04-11 05:29] LABS: BASOPHILS 0.4 % (0-2); HEMATOCRIT 36.4 % (36.0-48.0); HEMOGLOBIN 12.3 g/dL (12-16); IMMATURE GRANULOCYTES 0.2 % (0-5); LYMPHOCYTES 41.7 % (15-50); MCH 31.2 pg (26.0-34.0); MCHC 33.8 g/dL (31.0-37.0); MCV 92.4 fL (80.0-100.0); MEAN PLATELET VOLUME 9.8 fL (7.4-10.4); MONOCYTES 10.2 % (2-11); NEUTROPHILS 39.5 % (40-80); PLATELET COUNT 136 10x3/uL (130-400); RBC 3.94 10x6/uL (4.00-5.40); RDW 13.7 % (11.5-14.5); WBC 5.3 10x3/uL (4.8-10.8)
[2018-04-11 05:46] LABS: ANION GAP 13.5 mmol/L (8-16); CALCIUM 8.5 mg/dL (8.5-10.1); CARBON DIOXIDE 25.4 mmol/L (21.0-32.0); POTASSIUM - SERUM 3.9 mmol/L (3.5-5.1)
[2018-04-11 07:57] VITALS: BP 128/60
[2018-04-11 11:28] VITALS: BP 156/75
[2018-04-11 15:17] VITALS: BP 118/51
[2018-04-11 20:00] VITALS: BP 118/56
[2018-04-12] VITALS: BP 129/61
[2018-04-12 04:00] VITALS: BP 120/51
[2018-04-12 08:09] VITALS: BP 140/89
[2018-04-12 11:41] VITALS: BP 140/76
[2018-04-12 15:32] VITALS: BP 100/54
[2018-04-12 20:00] VITALS: BP 110/64
[2018-04-13] VITALS (7 sets, daily range): BP systolic 105–137; BP diastolic 53–72; Ht 160 cm; Wt 68.6 kg
[2018-04-14 04:36] VITALS: BP 118/77; BP 126/45
[2018-04-14 05:04] LABS: BASOPHILS 0.2 % (0-2); EOSINOPHILS 8.1 % (0-7); HEMATOCRIT 34.8 % (36.0-48.0); HEMOGLOBIN 11.9 g/dL (12-16); IMMATURE GRANULOCYTES 0.2 % (0-5); LYMPHOCYTES 48.1 % (15-50); MCH 31.4 pg (26.0-34.0); MCHC 34.2 g/dL (31.0-37.0); MCV 91.8 fL (80.0-100.0); MEAN PLATELET VOLUME 10.1 fL (7.4-10.4); MONOCYTES 9.5 % (2-11); NEUTROPHILS 33.9 % (40-80); PLATELET COUNT 154 10x3/uL (130-400); RBC 3.79 10x6/uL (4.00-5.40); RDW 13.8 % (11.5-14.5); WBC 4.8 10x3/uL (4.8-10.8)
[2018-04-14 05:11] LABS: APTT 28.9 SECONDS (22.8-39.4); INR 1.04 (0.85-1.17); PROTIME 13.2 SECONDS (11.6-15.0)
[2018-04-14 05:33] LABS: ALBUMIN 2.8 g/dL (3.4-5.0); ANION GAP 13.9 mmol/L (8-16); BILIRUBIN - TOTAL 0.3 mg/dL (0.2-1.3); CALCIUM 8.2 mg/dL (8.5-10.1); CARBON DIOXIDE 23.2 mmol/L (21.0-32.0); POTASSIUM - SERUM 4.1 mmol/L (3.5-5.1); PROTEIN - SERUM 6.3 g/dL (6.4-8.2); T4 THYROXIN - FREE 0.91 ng/dL (0.76-1.46); THYROID STIMULATING HORMONE 10.68 uIU/mL (0.36-3.74); URIC ACID 5.1 mg/dL (2.6-7.2)
[2018-04-14 07:33] LABS: APPEARANCE CLEAR (CLEAR); BILIRUBIN NEGATIVE (NEGATIVE); COLOR YELLOW (YELLOW); GLUCOSE NEGATIVE (NEGATIVE); KETONE NEGATIVE (NEGATIVE); NITRITE NEGATIVE (NEGATIVE); PROTEIN NEGATIVE (NEGATIVE); SPECIFIC GRAVITY 1.015 (1.005-1.020); UROBILINOGEN NORMAL (NORMAL)
[2018-04-14 07:35] LABS: BACTERIA FEW /hpf (NONE SEEN); EPITHELIAL CELLS 0-5 /hpf (0-5); WHITE CELLS - URINE 0-5 /hpf (0-5)
[2018-04-14 11:43] VITALS: BP 113/58
[2018-04-14 16:39] VITALS: BP 113/54
[2018-04-14 19:54] VITALS: BP 128/67
[2018-04-15] VITALS (42 sets, daily range): BP systolic 92–133; BP diastolic 47–68
[2018-04-15 08:41] LABS: PLT FUNCT.(P2Y12) PLAVIX 292 PRU (194-418)
[2018-04-15 13:17] LABS: HEMATOCRIT 35.8 % (36.0-48.0); HEMOGLOBIN 12.1 g/dL (12-16); MCH 29.9 pg (26.0-34.0); MCHC 33.8 g/dL (31.0-37.0); MEAN PLATELET VOLUME 10.3 fL (7.4-10.4); RBC 4.05 10x6/uL (4.00-5.40); RDW 15.3 % (11.5-14.5)
[2018-04-15 13:19] LABS: MCV 88.4 fL (80.0-100.0); PLATELET COUNT 75 10x3/uL (130-400)
[2018-04-15 13:24] LABS: CHLORIDE - SERUM 111 mmol/L (98-107); SODIUM 145 mmol/L (136-145)
[2018-04-15 13:26] LABS: CALC OSMOLALITY 295 mosm/kg (275-300); CREATININE - SERUM 0.7 mg/dL (0.6-1.3); GLUCOSE 207 mg/dL (74-106); POTASSIUM - SERUM 5.5 mmol/L (3.5-5.1); UREA NITROGEN 14 mg/dL (7-18); eGFR NON AFRICAN AMERICAN 85 mL/min (90-120)
[2018-04-15 13:32] LABS: CALCIUM 6.9 mg/dL (8.5-10.1); INR 1.52 (0.85-1.17); PROTIME 17.8 SECONDS (11.6-15.0)
[2018-04-15 14:07] LABS: PLATELET ESTIMATE DECREASED
[2018-04-16] VITALS (77 sets, daily range): BP systolic 85–126; BP diastolic 42–61
[2018-04-16 06:16] LABS: MCH 29.7 pg (26.0-34.0); MCHC 33.3 g/dL (31.0-37.0); MCV 89.2 fL (80.0-100.0); MEAN PLATELET VOLUME 10.3 fL (7.4-10.4); RDW 16.6 % (11.5-14.5); WBC 8.8 10x3/uL (4.8-10.8)
[2018-04-16 06:23] LABS: HEMATOCRIT 28.2 % (36.0-48.0); HEMOGLOBIN 9.4 g/dL (12-16); RBC 3.16 10x6/uL (4.00-5.40)
[2018-04-16 06:35] LABS: ALBUMIN 3.8 g/dL (3.4-5.0); BILIRUBIN - TOTAL 0.62 mg/dL (0.2-1.3); CALCIUM 7.9 mg/dL (8.5-10.1); CARBON DIOXIDE 26.3 mmol/L (21.0-32.0); PROTEIN - SERUM 5.6 g/dL (6.4-8.2)
[2018-04-16 06:36] LABS: CREATININE - SERUM 0.9 mg/dL (0.6-1.3); POTASSIUM - SERUM 4.3 mmol/L (3.5-5.1)
[2018-04-16 12:51] LABS: HEMATOCRIT 27.5 % (36.0-48.0); HEMOGLOBIN 9.2 g/dL (12-16)
[2018-04-17] VITALS (73 sets, daily range): BP systolic 89–134; BP diastolic 41–70
[2018-04-17 06:28] LABS: HEMATOCRIT 31.5 % (36.0-48.0); HEMOGLOBIN 10.2 g/dL (12-16); MCH 29.5 pg (26.0-34.0); MCHC 32.4 g/dL (31.0-37.0); RBC 3.46 10x6/uL (4.00-5.40); RDW 16.6 % (11.5-14.5)
[2018-04-17 06:59] LABS: ALBUMIN 3.2 g/dL (3.4-5.0); BILIRUBIN - TOTAL 0.58 mg/dL (0.2-1.3); CALCIUM 7.9 mg/dL (8.5-10.1); CARBON DIOXIDE 27.3 mmol/L (21.0-32.0); POTASSIUM - SERUM 4.3 mmol/L (3.5-5.1); PROTEIN - SERUM 5.7 g/dL (6.4-8.2)
[2018-04-17 07:05] LABS: CREATININE - SERUM 1.3 mg/dL (0.6-1.3)
[2018-04-18] VITALS (22 sets, daily range): BP systolic 94–141; BP diastolic 41–72
[2018-04-18 06:20] LABS: HEMATOCRIT 30.2 % (36.0-48.0); HEMOGLOBIN 9.9 g/dL (12-16); MCHC 32.8 g/dL (31.0-37.0); MCV 91.5 fL (80.0-100.0); MEAN PLATELET VOLUME 10.6 fL (7.4-10.4); RBC 3.3 10x6/uL (4.00-5.40); RDW 16.3 % (11.5-14.5)
[2018-04-18 06:24] LABS: WBC 6.5 10x3/uL (4.8-10.8)
[2018-04-18 06:47] LABS: ALBUMIN 2.7 g/dL (3.4-5.0); ANION GAP 9.3 mmol/L (8-16); BILIRUBIN - TOTAL 0.64 mg/dL (0.2-1.3); CALCIUM 7.9 mg/dL (8.5-10.1); CARBON DIOXIDE 28.9 mmol/L (21.0-32.0); POTASSIUM - SERUM 4.2 mmol/L (3.5-5.1); PROTEIN - SERUM 5.6 g/dL (6.4-8.2)
[2018-04-19] VITALS (25 sets, daily range): BP systolic 92–137; BP diastolic 43–62
[2018-04-19 05:22] LABS: HEMATOCRIT 29.5 % (36.0-48.0); HEMOGLOBIN 9.5 g/dL (12-16); MCH 29.6 pg (26.0-34.0); MCHC 32.2 g/dL (31.0-37.0); MCV 91.9 fL (80.0-100.0); MEAN PLATELET VOLUME 10.4 fL (7.4-10.4); RBC 3.21 10x6/uL (4.00-5.40); RDW 15.7 % (11.5-14.5); WBC 5.1 10x3/uL (4.8-10.8)
[2018-04-19 05:48] LABS: ALBUMIN 2.5 g/dL (3.4-5.0); ANION GAP 10.8 mmol/L (8-16); BILIRUBIN - TOTAL 0.7 mg/dL (0.2-1.3); CALCIUM 7.7 mg/dL (8.5-10.1); CARBON DIOXIDE 28.2 mmol/L (21.0-32.0); PROTEIN - SERUM 5.6 g/dL (6.4-8.2)
[2018-04-20] VITALS (25 sets, daily range): BP systolic 91–141; BP diastolic 47–81
[2018-04-20 06:06] LABS: HEMATOCRIT 28.8 % (36.0-48.0); HEMOGLOBIN 9.4 g/dL (12-16); MCH 29.7 pg (26.0-34.0); MCHC 32.6 g/dL (31.0-37.0); MCV 91.1 fL (80.0-100.0); MEAN PLATELET VOLUME 9.9 fL (7.4-10.4); RBC 3.16 10x6/uL (4.00-5.40); RDW 15.5 % (11.5-14.5); WBC 4.4 10x3/uL (4.8-10.8)
[2018-04-20 06:28] LABS: ALBUMIN 2.2 g/dL (3.4-5.0); ANION GAP 9.8 mmol/L (8-16); BILIRUBIN - TOTAL 0.44 mg/dL (0.2-1.3); CALCIUM 8.1 mg/dL (8.5-10.1); CREATININE - SERUM 0.9 mg/dL (0.6-1.3); POTASSIUM - SERUM 3.8 mmol/L (3.5-5.1); PROTEIN - SERUM 5.4 g/dL (6.4-8.2)
[2018-04-21] VITALS (11 sets, daily range): BP systolic 103–120; BP diastolic 43–60
[2018-04-21 06:01] LABS: HEMATOCRIT 28.1 % (36.0-48.0); HEMOGLOBIN 9.3 g/dL (12-16); MCHC 33.1 g/dL (31.0-37.0); MCV 90.6 fL (80.0-100.0); MEAN PLATELET VOLUME 9.9 fL (7.4-10.4); RBC 3.1 10x6/uL (4.00-5.40); RDW 15.2 % (11.5-14.5); WBC 4.6 10x3/uL (4.8-10.8)
[2018-04-21 06:23] LABS: ALBUMIN 2.2 g/dL (3.4-5.0); ANION GAP 11.2 mmol/L (8-16); BILIRUBIN - TOTAL 0.4 mg/dL (0.2-1.3); CALCIUM 7.9 mg/dL (8.5-10.1); CARBON DIOXIDE 27.6 mmol/L (21.0-32.0); POTASSIUM - SERUM 3.8 mmol/L (3.5-5.1); PROTEIN - SERUM 5.4 g/dL (6.4-8.2)
[2018-04-21] MEDS ORDERED: HEMOCYTE PLUS C1 CAP PO (08:55)
[2018-04-21] MEDS ORDERED: COREG 3.1253.125 MG PO (08:56)
[2018-04-21] MEDS ORDERED: CORDARONE200 MG PO (08:56)
[2018-04-21] MEDS ORDERED: COLACE100 MG PO (08:58)
[2018-04-21] MEDS ORDERED: HYDROCODON-ACE1 EAC7 PO (09:00)
== END 2018-04-21 10:58 | disposition home or self-care (01) | DRG 234 ==
LOC: D.ER 09:21 → D.M2 12:40 → OBSVTIME 12:40 → D.EDHOLD 12:40 → D.M2 13:00 → D.CVICU 04-12 12:35 → D.M2 04-12 12:35 → D.CVICU 04-15 12:12
PROVIDERS: Family Medicine; Internal Medicine Cardiovascular Disease; Internal Medicine Interventional Cardiology; Nurse Practitioner Family; Thoracic Surgery (Cardiothoracic Vascular Surgery)
PROC: B2151ZZ Fluoroscopy of Left Heart using Low Osmolar Contrast (ICD-10-PCS; 2018-04-11)
PROC: 4A023N7 Measurement of Cardiac Sampling and Pressure, Left Heart, Percutaneous Approach (ICD-10-PCS; 2018-04-11)
PROC: B240ZZ3 Ultrasonography of Single Coronary Artery, Intravascular (ICD-10-PCS; 2018-04-11)
PROC: B2111ZZ Fluoroscopy of Multiple Coronary Arteries using Low Osmolar Contrast (ICD-10-PCS; principal; 2018-04-11 09:00)
PROC: 02100ZC Bypass Coronary Artery, One Artery from Thoracic Artery, Open Approach (ICD-10-PCS; 2018-04-15)
PROC: 021009W Bypass Coronary Artery, One Artery from Aorta with Autologous Venous Tissue, Open Approach (ICD-10-PCS; 2018-04-15)
PROC: 06BQ0ZZ Excision of Left Saphenous Vein, Open Approach (ICD-10-PCS; 2018-04-15)
PROC: 5A1221Z Performance of Cardiac Output, Continuous (ICD-10-PCS; 2018-04-15)
PROC: B245ZZ4 Ultrasonography of Left Heart, Transesophageal (ICD-10-PCS; 2018-04-15)
DX: I25.110 Atherosclerotic heart disease of native coronary artery with unstable angina pectoris (principal); E78.5 Hyperlipidemia, unspecified; E03.9 Hypothyroidism, unspecified; I10 Essential (primary) hypertension; I95.9 Hypotension, unspecified; D64.9 Anemia, unspecified; Z86.73 Personal history of transient ischemic attack (TIA), and cerebral infarction without residual deficits

== ENCOUNTER → 2018-05-05 12:47 | Outpatient (CLI) | payer MEDICARE, BC ==
[2018-04-13 12:29] VITALS: BMI 25.3
[~2018-05-05 12:47] MED LIST changes: +COLACE100 MG PO; +CORDARONE200 MG PO; +COREG 3.1253.125 MG PO; +COREG12.5 MG PO; +HEMOCYTE PLUS C1 CAP PO; +HYDROCODON-ACE1 EAC7 PO; +SYNTHROID88 MCG PO
[2018-05-05 13:06] LABS: HEMOGLOBIN 11.3 g/dL (12-16); MCH 29.9 pg (26.0-34.0); MCHC 32.3 g/dL (31.0-37.0); MCV 92.6 fL (80.0-100.0); MEAN PLATELET VOLUME 9.4 fL (7.4-10.4); RBC 3.78 10x6/uL (4.00-5.40); RDW 15.2 % (11.5-14.5); WBC 6.2 10x3/uL (4.8-10.8)
[2018-05-05 13:22] LABS: ALBUMIN 3.3 g/dL (3.4-5.0); ANION GAP 10.7 mmol/L (8-16); BILIRUBIN - TOTAL 0.44 mg/dL (0.2-1.3); CALCIUM 9.4 mg/dL (8.5-10.1); CARBON DIOXIDE 29.5 mmol/L (21.0-32.0); CREATININE - SERUM 1.3 mg/dL (0.6-1.3); POTASSIUM - SERUM 4.2 mmol/L (3.5-5.1); PROTEIN - SERUM 7.3 g/dL (6.4-8.2)
== END | disposition home or self-care (01) ==
LOC: D.LAB 09:00 → D.RAD 09:30 → D.LAB 12:47
PROVIDERS: Internal Medicine Cardiovascular Disease
DX: J90 Pleural effusion, not elsewhere classified (principal); D64.9 Anemia, unspecified; I25.10 Atherosclerotic heart disease of native coronary artery without angina pectoris

== ENCOUNTER → 2018-09-05 13:17 | Outpatient (CLI) | payer MEDICARE, BC ==
[2018-04-13 12:29] VITALS: BMI 25.3
== END | disposition home or self-care (01) ==
LOC: D.CT 13:17
DX: R10.2 Pelvic and perineal pain (principal)

== ENCOUNTER 2018-12-19 08:00 | Outpatient (CLI) | payer MEDICARE, BC ==
[2018-04-13 12:29] VITALS: BMI 25.3
== END 2018-12-19 09:00 | disposition home or self-care (01) ==
LOC: D.MAMMO 08:00
DX: Z12.31 Encounter for screening mammogram for malignant neoplasm of breast (principal)

== ENCOUNTER 2019-01-06 09:01 | Outpatient (CLI) | payer MEDICARE, BC ==
[~2019-01-06] VITALS: Ht 160 cm; Wt 64.1 kg
--- NOTE | ~2019-01-06 | HEMODYNAMI ---
PATIENT:MUKESH ADEN MEDICAL RECORD: [id number] : 35 LOCATION:[facility] ADMISSION DATE: 01/06/19 Generatedon:01/06/201913:30 Patient name: MUKESH ADEN Patient #: [id number] SSN: [id number] : 1935 Date of study: 01/06/2019 Page: Of Hemodynamic Procedure Report Patient Data Patient Demographics Procedure consent was obtained First Name: MUKESH Gender: Female Last Name: KEIKO : 1935 Middle Initial: ANTONI Age: 83 year(s) Patient #: [id number] Race: SSN: [id number] Additional ID: [id number] Contact details [address]: [address] [place] [address] State: [place] City: [place] Zip code: [address] Past Medical History Allergies Allergen Reaction Date Comments Reported Sulfa drugs 01/18/2015 Other allergy 01/18/2015 cipro Other allergy 01/18/2015 niacin Amoxicillin 01/18/2015 Codeine 01/18/2015 Other allergy 11/17/2016 amoxicillin, cipro, codeine, Niacin, Sulfa Other allergy 04/11/2018 cipro Other allergy 01/06/2019 CIPRO, SULFA, CODEINE, NIACIN, AMOXICILLIN Admission Admission Data Admission Date: 01/06/2019 Admission Time: 9:01 Admit Source: Other Height (in.): 62.99 BSA: 1.67 (m2) Height (cm.): 160 BMI: 25 (kg/m2) Weight (lbs.): 141.1 Weight (kg.): 64 Lab Results Lab Result Date: 01/06/2019 Lab Result Time: 0:00 Biochemistry Name Units Result Min Max BUN mg/dl 22 --(----)-* 7 18 Creatinine mg/dl 0.8 --(-*--)-- 0.6 1.3 CBC Name Units Result Min Max Hemoglobin g/dl 12.7 -*(----)-- 13.5 17.5 Procedure Procedure Types Cath Procedure Diagnostic Procedure LHC LH w/Coronaries w/Grafts Sedation Charges Moderate Sedation up to 15 minutes PCI Procedure Coronary Stent Coronary Stent Initial Procedure Description Procedure Date Procedure Date: 01/06/2019 Procedure Start Time: 12:57 Procedure End Time: 13:27 Procedure Staff Name Function Sergei Squires MD Performing Physician Cori Mayfield RT Monitor Se Marshall RT Scrub Kristi Donis RN Nurse Zack Venegas RT Supervisor Contact Lens Procedure Data Cath Procedure Fluoroscopy Diagnostic fluoroscopy Total fluoroscopy Time: 9.2 time: 9.2 min min Diagnostic fluoroscopy Total fluoroscopy dose: 573 dose: 573 mGy mGy Contrast Material Contrast Material Type Amount (ml) Isovue 300 154 Entry Location Entry Primary Successful Side Size Upsize Upsize Entry Closure Succes sful Closure Location (Fr) 1 (Fr) 2 (Fr) Remarks Device Remarks Femoral Right 5 Fr 6 Fr Exoseal artery Short Estimated blood loss: 10 ml Diagnostic catheters Device Type Used For End Catheter Placement MULTIPACK Pigtail 5 Fr Procedure catheter MULTIPACK JL 4.0 5Fr Procedure catheter MULTIPACK 3DRC 5Fr Procedure catheter DIAGNOSTIC AR2 MOD 5 Fr Procedure catheter ([id number]) Procedure Complications No complications Procedure Medications Medication Administration Route Dosage 0.9% NaCl I.V. 100 ml/hr Oxygen etCO2 Nasal cannula 2 l/min Lidocaine 2% added to field 20 Heparin Flush Bag added to field 2 bags (1000units/500ml NS) Versed I.V. 2 mg Fentanyl I.V. 50 mcg Versed I.V. 2 mg Heparin Bolus I.V. 4000 units Integrilin (Bolus I.V. 5.6 ml 2mg/ml) Plavix P.O. 600 mg Versed I.V. 1 mg Fentanyl I.V. 50 mcg Hemodynamics Rest BSA: 1.67 (m2) HGB: 12.7 (g/dl) O2 Consumption: Estimated: 145.64 (ml/min) O2 Co nsumption indexed: Estimated:87.21 (ml/min/m) Heart Rate: 65 (bpm) Snapshots Pre Cath Intra NCS Post Cath Vital Signs Time Heart Resp SPO2 etCO2 NIBP (mmHg) Rhythm Pain Sedation Rate (ipm) (%) (mmHg) Status Level (bpm) 12:31:02 79 16 99 30.6 183/81(117) NSR 0 (11) 10(A) , No pain 12:35:28 66 11 98 29.8 158/71(94) NSR 0 (11) 10(A) , No pain 12:39:48 62 11 93 32.8 131/67(89) NSR 0 (11) 10(A) , No pain 12:44:02 66 13 96 26 131/64(91) NSR 0 (11) 10(A) , No pain 12:48:18 62 12 97 27.5 127/61(82) NSR 0 (11) 10(A) , No pain 12:52:35 62 12 98 26.7 128/57(79) NSR 0 (11) 10(A) , No pain 12:56:44 67 14 98 27.5 133/75(96) NSR 0 (11) 10(A) , No pain 13:00:58 65 12 98 25.2 130/65(88) NSR 0 (11) 10(A) , No pain 13:05:14 63 13 98 26.7 143/61(86) NSR 0 (11) 9(A) , No pain 13:09:34 62 12 98 27.5 131/62(91) NSR 0 (11) 9(A) , No pain 13:13:48 64 13 98 26.7 132/64(93) NSR 0 (11) 9(A) , No pain 13:19:00 70 16 100 26.7 161/76(112) NSR 0 (11) 9(A) , No pain 13:23:22 65 13 96 26.7 130/66(92) NSR 0 (11) 10(A) , No pain 13:27:36 64 14 96 26.7 136/65(85) NSR 0 (11) 10(A) , No pain Medications Time Medication Route Dose Verified Delivered Reason Notes Effectiveness by by 12:30:12 0.9% NaCl I.V. 100 Sergei Kristi used for ml/hr Shaw Donis air battle manager 12:30:19 Oxygen etCO2 2 Sergei Leona used for Nasal l/min Shaw Donis procedure cannula RN 12:30:25 Lidocaine 2% added 20ml Sergei Sergei for local to vial Shaw Squires MD anesthetic field 12:30:29 Heparin Flush added 2 Sergei Mai used for Bag to bags Shaw Squires MD procedure (1000units/500ml field NS) 12:56:46 Versed I.V. 2 mg Sergei Kristi for sedation Shaw Donis RN 12:56:55 Fentanyl I.V. 50 Sergei Kristi for sedation mcg Shaw Donis RN 13:01:40 Versed I.V. 2 mg Sergei Kristi for sedation Shaw Donis RN 13:06:44 Heparin Bolus I.V. 4000 Sergei Kristi for verif ied units Shaw Donis anticoagulation with Dr. ZAIRA Squires 13:13:21 Integrilin I.V. 5.6 Sergei Kristi for waste d (Bolus 2mg/ml) ml Shaw Donis anticoagulation 4.4 mL RN 13:14:41 Plavix P.O. 600 Sergei Caldwellyla for mg Shaw Donis antiplatelet RN therapy 13:18:57 Versed I.V. 1 mg Sergei Kristi for sedation Shaw Donis RN 13:19:02 Fentanyl I.V. 50 Sergei Kristi for sedation mcg Shaw Donis RN Procedure Log Time Note 12:14:00 Informed consent obtained and on chart 12:14:03 Admit Source: Other 12:14:26 Diagnostic Cath status Elective 12:14:27 Time tracking: Regular hours (M-F 7:00 - 5:00) 12:14:31 Plan of Care:Hemodynamics will remain stable., Cardiac rhythm will remain stable., Comfort level will be maintained., Respiratory function will remain adequate., Patient/ family verbilizes understanding of procedure., Procedure tolerated without complication., Recovers from procedure without complications.. 12:16:05 H&P Date Dictated: 01/06/2019 Within 30 days and on chart., H&P Addendum completed by physician on day of procedure. (MUST COMPLETE FOR ALL OUTPATIENTS). 12:16:10 Zack Venegas RT(R) sent for patient. Start room use. 12:25:10 Patient received from Pre/Post Procedure Room to CCL 1 Alert and oriented. Tansferred to table in Supine position. 12:25:11 Warm blankets applied, and carla hugger turned on for patient comfort. 12:25:12 Correct patient and procedure confirmed by team. 12:25:12 ECG and BP/O2 sat monitors applied to patient. 12:25:17 Pre-procedure instructions explained to patient. 12::18 Pre-op teaching completed and patient verbalized understanding. 12:25:19 Family in waiting room. 12:25:21 Patient NPO since Midnight. 12:29:50 Vital chart was started 12:30:12 0.9% NaCl 100 ml/hr I.V. was administered by Kristi Donis RN; used for procedure; 12::19 Oxygen 2 l/min etCO2 Nasal cannula was administered by Kristi Donis RN; used for procedure; 12::25 Lidocaine 2% 20ml vial added to field was administered by Sergei Squires MD; for local anesthetic; 12:30:29 Heparin Flush Bag (1000units/500ml NS) 2 bags added to field was administered by Sergei Squires MD; used for procedure; 12:38:15 Baseline sample Acquired. 12:38:23 Rhythm: sinus rhythm 12:38:24 Full Disclosure recording started 12:39:00 Patient allergic to Other allergyCIPRO, SULFA, CODEINE, NIACIN, AMOXICILLIN 12:39:05 Is patient on blood thinner?No 12:39:06 Patient diabetic? No. 12:39:14 Patient not . Patient is over age 55. 12:39:16 Previous problem with sedation/anesthesia? No ? 12:39:17 Snore? Yes 12:39:19 Sleep apnea? No 12:39:21 Deviated septum? No 12:39:22 Opens mouth fully? Yes 12:39:24 Sticks out tongue? Yes 12:39:27 Airway obstruction? No ? 12:39:29 Dentures? No ? 12:39:32 Pre procedure: right dorsailis pedis pulse 1+ Palpable, but thready & weak; easily obliterated 12:39:34 Patient pain scale 0/10 ?. 12:39:46 IV patent on arrival in left hand with 0.9% NaCl at [facility]. 12:40:10 Lab Result : BUN 22 mg/dl 12:40:10 Lab Result : Creatinine 0.8 mg/dl 12:40:10 Lab Result : Hemoglobin 12.7 g/dl 12:40:13 Lab results completed and on chart. 12:40:16 Right groin area was prepped with chlora-prep and draped in sterile fashion 12:40:17 Alarms reviewed by R. N. 12:40:18 Sharps counted by scrub and verified by R.N. 12:40:20 Use device set Femoral Dx 12:40:21 ACIST Syringe (85076) opened to sterile field. 12:40:22 Bag Decanter (2002S) opened to sterile field. 12:40:23 ACIST Hand Control (28864) opened to sterile field. 12:40:24 ACIST Manifold (61068) opened to sterile field. 12:40:24 Tegaderm 4 x 4 (1626W) opened to sterile field. 12:40:26 Medline Cath Pack ([id number]) opened to sterile field. 12:40:27 DIAGNOSTIC WIRE .035 260cm J wire (122171) opened to sterile field. 12:40:28 DIAGNOSTIC Multipack 5Fr catheter set (ZU7069) opened to sterile field. 12:40:29 SHEATH 5FR [place] (LED015) opened to sterile field. 12:44:04 Zero performed for pressure channel P1 12:46:53 Procedure type changed to Cath procedure, Diagnostic procedure, LHC, LHC w/Coronaries w/Grafts, Sedation Charges, Moderate Sedation up to 15 minutes, PCI procedure, Coronary Stent, Coronary Stent Initial 12:47:13 Patient Height : 62.99 inches 12:47:22 Patient Weight : 141.1 lbs 12:47:49 Baseline sample Acquired. 12:55:08 --------ALL STOP TIME OUT------ 12:55:08 Final Timeout: patient, procedure, and site verified with staff and physician. All members of the team are in agreement. 12:55:10 Right groin site verified by team. 12:55:14 Fire Safety Assessment: A--An alcohol-based skin anteseptic being used preoperatively., C--Open oxygen or nitrous oxide is being used., D--An ESU, laser, or fiber-optic light is being used. 12:55:16 Physical assessment completed. ASA score P 2 - A patient with mild systemic disease as per Sergei Squires MD. 12:55:19 Sedation plan: IV Moderate Sedation Medication:Versed, Fentanyl 12:56:46 Versed 2 mg I.V. was administered by Kristi Donis RN; for sedation; 12:56:55 Fentanyl 50 mcg I.V. was administered by Kristi Donis RN; for sedation; 12:57:26 Procedure started. 12:57:31 Local anesthetic to right femoral artery with Lidocaine 2% by Sergei Squires MD.INITIAL ACCESS ONLY 12:57:52 A 5 Fr sheath was inserted into the Right Femoral artery 12:58:00 A MULTIPACK Pigtail 5 Fr catheter was advanced over the wire and used for Procedure. 12:58:11 LV gram done using COLEMAN 12:58:16 RCA angiography performed. 12:58:29 EF : 55 % 12:58:31 Catheter removed. 12:58:45 A MULTIPACK JL 4.0 5Fr catheter was advanced over the wire and used for Procedure. 12:59:49 LCA angiography performed. 12:59:51 Catheter removed. 12:59:55 A MULTIPACK 3DRC 5Fr catheter was advanced over the wire and used for Procedure. 13:00:54 KRISHNAN to LAD angiography performed. 13:01:40 Versed 2 mg I.V. was administered by Kristi Donis RN; for sedation; 13:01:47 RCA angiography performed. 13:01:57 Catheter removed. 13:02:27 SHEATH 6FR [place] (LYP286) opened to sterile field. 13:02:28 INFLATOR Merit BasixCompak (FS4614) opened to sterile field. 13:02:28 CHOICE PT Extra Support 182cm wire ([id number]) opened to sterile field. 13:02:41 A DIAGNOSTIC AR2 MOD 5 Fr catheter ([id number]) was advanced over the wire and used for Procedure. 13:04:49 SVG to Diag occluded. 13:04:51 Catheter removed. 13:04:56 Sheath upsized to a 6 Fr Short. 13:06:24 6 Fr 3DRC SH guide catheter was inserted over the wire 13:06:44 Heparin Bolus 4000 units I.V. was administered by Kristi Donis RN; for anticoagulation; verified with Dr. Squires 13:06:56 Wire advanced across lesion. 13:07:34 IVUS catheter advanced over wire. 13:09:09 IVUS pass to RCA lesion performed. 13:09:11 IVUS catheter removed over wire. 13:09:21 Guide catheter removed. 13:09:24 GUIDE 6FR XB 3.5 catheter ([id number]) opened to sterile field. 13:09:25 FIELDER XT 190cm guidewire ([id number]) opened to sterile field. 13:09:57 6 Fr XB 3.5 guide catheter was inserted over the wire 13:11:26 FIELDER 190 wire advanced. 13:12:37 Wire advanced across lesion. 13:13:21 Integrilin (Bolus 2mg/ml) 5.6 ml I.V. was administered by Kristi Donis RN; for anticoagulation; wasted 4.4 mL 13:14:20 Inflate balloon Inflation number: 1 A EUPHORA 1.5 x 20 Balloon ([id number]) was prepped and advanced across the 1st Diag, then inflated to 13 MALACHI for 0:00 (min:sec). 13:14:33 Inflation number: 2 The EUPHORA 1.5 x 20 Balloon ([id number]) was reinflated across the 1st Diag, to 21 MALACHI for 0:10 (min:sec). 13:14:41 Plavix 600 mg P.O. was administered by Kristi Donis RN; for antiplatelet therapy; 13:14:42 Inflation number: 3 The EUPHORA 1.5 x 20 Balloon ([id number]) was reinflated across the 1st Diag, to 21 MALACHI for 0:00 (min:sec). 13:15:04 Balloon removed over the wire. 13:17:00 The CALEB RX 2.0 x 30 stent ([id number]) was advanced then removed because of failure to cross lesion 13:18:53 Inflate balloon Inflation number: 4 A EUPHORA 2.0 x 20 Balloon ([id number]) was prepped and advanced across the 1st Diag, then inflated to 13 MALACHI for 0:00 (min:sec). 13:18:57 Versed 1 mg I.V. was administered by Kristi Donis RN; for sedation; 13:19:02 Fentanyl 50 mcg I.V. was administered by Kristi Donis RN; for sedation; 13:19:07 Inflation number: 5 The EUPHORA 2.0 x 20 Balloon ([id number]) was reinflated across the 1st Diag, to 21 MALACHI for 0:10 (min:sec). 13:19:13 Balloon removed over the wire. 13:20:18 Place stent Inflation Number: 6 A CALEB RX 2.0 x 30 stent ([id number]) was prepped and advanced across the 1st Diag. The stent was deployed at 11 MALACHI for 0:10 (min:sec). 13:20:31 Inflation number: 7 The stent balloon was then re-inflated across the 1st Diag to 21 MALACHI for 0:10 (min:sec). 13:21:09 Balloon removed over the wire. 13:21:10 Wire removed. 13:21:10 Guide catheter removed. 13:21:30 EXOSEAL 6Fr (EX600) opened to sterile field. 13:21:39 Sheath removed intact; hemostasis achieved with Exoseal to the Right Femoral artery. 13:21:56 Procedure ended.(Physican Out) 13:22:49 Fluoroscopy time 09.20 minutes. 13:22:55 Flurop Dose total: 573 13:22:55 Fluoroscopy dose: 573 mGy 13:22:59 Contrast amount:Isovue 300 154ml. 13:23:00 Sharps counted by scrub and verified by R.N. 13:23:03 Post-op/insertion site Right Femoral artery dressed using a 4 x 4 and Tegaderm. 13:23:06 Post-procedure physical assessment completed. ASA score P 2 - A patient with mild systemic disease as per Sergei Squires MD. 13:23:09 Post procedure rhythm: sinus rhythm 13:23:12 Estimated blood loss: 10 ml 13:23:14 Post procedure instruction explained to patient.Patient verbalizes understanding. 13:23:14 Patient needs reinforcement of post procedure teaching. 13:27:13 Procedure and supply charges have been captured, reviewed, submitted and are correct. 13:27:15 Procedure Complication : No complications 13:27:19 Vital chart was stopped 13:27:20 See physician's report for complete and final results. 13:27:22 Report given to Pre/Post Procedure Room. 13:27:32 Patient transfered to Pre/Post Procedure Room with Bed. 13:27:34 Procedure ended. 13:27:34 Full Disclosure recording stopped 13:27:40 End room use (Document Last) Intervention Summary Intervention Notes Time ActionType Lesion and Equipment Used Action# Pressure Duration Attributes 13:14:20 Inflate 1st Diag EUPHORA 1.5 x 1 13 00:00 balloon 20 Balloon ([id number]) 13:14:33 Reinflate 1st Diag EUPHORA 1.5 x 2 21 00:10 balloon 20 Balloon ([id number]) 13:14:42 Reinflate 1st Diag EUPHORA 1.5 x 3 21 00:00 balloon 20 Balloon ([id number]) 13:17:00 Discard CALEB RX 2.0 x Stent 30 stent ([id number]) 13:18:53 Inflate 1st Diag EUPHORA 2.0 x 4 13 00:00 balloon 20 Balloon ([id number]) 13:19:07 Reinflate 1st Diag EUPHORA 2.0 x 5 21 00:10 balloon 20 Balloon ([id number]) 13:20:18 Place stent 1st Diag CALBE RX 2.0 x 6 11 00:10 30 stent ([id number]) 13:20:31 Reinflate 1st Diag CALEB RX 2.0 x 7 21 00:10 stent 30 stent balloon ([id number]) Device Usage Item Name Manufacture Quantity Catalog Number Hospital Part Current M inimal Lot# / Charge Number Stock Stock Serial# Code ACIST Syringe Acist 1 84581 153532 016822 712276 2 0 (82331) Medical Systems Inc Bag Decanter Microtek 1 2001S 191786 70311 072840 5 (2001S) Medical Inc. ACIST Hand Acist 1 76777 080161 114519 605611 5 Control Medical (72015) Systems Inc ACIST Manifold Acist 1 14019 585493 845543 086641 5 (67423) Medical Systems Inc Tegaderm 4 x 4 3M 1 1626W 875158 876746 594879 5 (1626W) Medline Cath Medline 1 [id number] 249798 58944 061105 5 Pack ([id number]) DIAGNOSTIC St Gal[place] 1 034854 498540 829011 837109 3 0 WIRE .035 260cm J wire (761375) DIAGNOSTIC Cardinal 1 JR8777 311942 19747 166028 3 0 Multipack 5Fr Health catheter set (TF5464) SHEATH 5FR Terumo 1 SZL221 430527 978930 232625 5 [place] (EGL493) MULTIPACK Cardinal 1 470052 5 Pigtail 5 Fr Health catheter MULTIPACK JL Cardinal 1 228683 5 4.0 5Fr Health catheter MULTIPACK 3DRC Cardinal 1 767930 5 5Fr catheter Health DIAGNOSTIC AR2 Cardinal 1 899216N 501092 930705 189472 2 0 MOD 5 Fr Health catheter (984933G) SHEATH 6FR Terumo 1 IDY948 200693 153055 638021 4 0 [place] (THZ449) INFLATOR Merit Merit 1 YU8065 581890 033939 776162 1 5 TEVIZZ Medical (LQ6710) CHOICE PT [place] 1 [id number] 752650 565898 722167 5 Extra Support Scientific 182cm wire ([id number]) GUIDE 6FR XB Cardinal 1 [id number] 823985 901947 552845 2 3.5 catheter Health (54295588) FIELDER XT Jaimes 1 [id number] 913733 78157 344473 5 190cm Vascular guidewire ([id number]) EUPHORA 1.5 x Medtronic 1 [id number] 736743 285530 598424 5 [id number] 20 Balloon ([id number]) CALEB RX 2.0 x Medtronic 1 [id number] 457135 9654148 065086 5 [id number] 30 stent ([id number]) EUPHORA 2.0 x Medtronic 1 [id number] 774003 262135 937542 5 [id number] 20 Balloon ([id number]) EXOSEAL 6Fr Cardinal 1 EX600 622350 670738 197290 1 0 (EX600) Health Signature Audit [place] Stage Time Signature Unsigned Intra-Procedure 01/06/2019 Cori Mayfield 1:29:58 PM RT(R) Signatures Monitor : Cori Mayfield Signature : RT Date : Time : [place] [id number] [place] [address]
[2019-01-06 09:27] VITALS: BP 175/85; Ht 160 cm; Wt 64.1 kg
[2019-01-06 10:02] LABS: HEMATOCRIT 37.7 % (36.0-48.0); HEMOGLOBIN 12.7 g/dL (12-16); LYMPHOCYTES 44.6 % (15-50); MCH 31.2 pg (26.0-34.0); MCHC 33.7 g/dL (31.0-37.0); MCV 92.6 fL (80.0-100.0); MEAN PLATELET VOLUME 9.8 fL (7.4-10.4); NEUTROPHILS 47.8 % (40-80); RBC 4.07 10x6/uL (4.00-5.40); RDW 13.2 % (11.5-14.5)
[2019-01-06 10:03] LABS: PLATELET COUNT 135 10x3/uL (130-400)
[2019-01-06 10:05] LABS: ANION GAP 14.7 mmol/L (8-16); CALCIUM 8.6 mg/dL (8.5-10.1); CARBON DIOXIDE 24.5 mmol/L (21.0-32.0); CREATININE - SERUM 0.8 mg/dL (0.6-1.3); POTASSIUM - SERUM 4.2 mmol/L (3.5-5.1)
[2019-01-06] MEDS ORDERED: PLAVIX75 MG PO (13:32)
--- NOTE | 2019-01-06 13:55 | NUR ---
2L NC, NO RESP DISTRESS. RIGHT GROIN 6F EXOSEAL CDI, NO BLEEDING OR HEMATOMA NOTED. NO C/O PAIN OR NAUSEA. VSS. FAMILY AT BEDSIDE, CALL LIGHT WITHIN REACH.
--- NOTE | 2019-01-06 14:25 | NUR ---
RESTING QUIETLY WITH EYES CLOSED. RIGHT GROIN 6F EXOSEAL CDI, NO BLEEDING OR HEMATOMA NOTED. DENIES ANY NEEDS OR C/O. VSS. WILL CONTINUE TO MONITOR.
--- NOTE | 2019-01-06 14:40 | NUR ---
CONTINUES TO REST COMFORTABLY. RIGHT GROIN 6F EXOSEAL CDI, NO BLEEDING OR HEMATOMA NOTED. DENIES ANY C/O AT THIS TIME. VSS. WILL CONTINUE TO MONITOR.
--- NOTE | 2019-01-06 15:10 | NUR ---
2L NC WITH NO RESP DISTRESS. RIGHT GROIN 6F EXOSEAL CDI, NO BLEEDING OR HEMATOMA NOTED. NO NEEDS VOICED. VSS. CALL LIGHT WITHIN REACH.
--- NOTE | 2019-01-06 16:10 | NUR ---
VOIDED 600CC ONTO BEDPAN. RIGHT GROIN 6F EXOSEAL CDI, NO BLEEDING OR HEMATOMA NOTED. NO C/O PAIN OR NAUSEA AT THIS TIME. CALL LIGHT WITHIN REACH.
--- NOTE | 2019-01-06 16:46 | NUR ---
HOB ELEVATED 30 DEGREES. RIGHT GROIN 6F EXOSEAL CDI, NO BLEEDING OR HEMATOMA NOTED. SIPPING ON DRINK AND EATING SANDWICH WITH NO C/O NAUSEA. VSS. WILL CONTINUE TO MONITOR.
--- NOTE | 2019-01-06 17:10 | NUR ---
LEFT PIV D/C'D WITH CATHETER INTACT, BAND AID TO SITE. UP TO BEDSIDE TO GET DRESSED.
--- NOTE | 2019-01-06 17:20 | NUR ---
DISCHARGE INSTRUCTIONS ALONG WITH PLAVIX PRESCRIPTION GIVEN, VERBALIZED UNDERSTANDING.
--- NOTE | 2019-01-06 17:30 | NUR ---
TAKEN OUT VIA WHEELCHAIR BY CATH STAMPING PRESS OPERATOR. LEFT FACILITY WITH FAMILY AND ALL PERSONAL BELONGINGS.
--- NOTE | 2019-01-10 10:45 | OP ---
PATIENT NAME: MUKESH ADEN MEDICAL RECORD: [id number] :35 LOCATION:D.CAT ADMISSION DATE: SURGEON: GREYSON SHERIFF MD DATE OF OPERATION: 01/06/2019 PROCEDURES: 1. PTCA stent LAD diagonal. 2. Left heart catheterization. 3. Selective coronary angiography. 4. Vein graft angiography. 5. KRISHNAN angiography. 6. Intravascular ultrasound. INDICATION: Angina and coronary artery disease. PROCEDURE IN DETAIL: After informed consent was obtained and after a detailed description of the risks, benefits as well as alternative therapies, the patient elected to proceed with angiogram and angioplasty. The right femoral area was prepped and draped in normal sterile fashion. Right femoral artery was cannulated via modified Seldinger technique with placement of 6-[place] sheath. All catheters exchanged through this sheath. FINDINGS: Left ventriculogram was performed in standard 30-degree COLEMAN view, reveals good cardiac wall motion throughout all segments. Overall ejection fraction estimated 60%. SELECTIVE CORONARY ANGIOGRAPHY: 1. Left main showed no significant angiographic disease. 2. Left anterior descending has a stent in the LAD diagonal. It is 95% in-stent restenosis followed by 95% stenosis just after the previous stent. 3. Vein graft to the diagonal was closed. 4. Left anterior descending has 90% stenosis in the mid vessel. 5. KRISHNAN to the LAD is widely patent. Distal LAD is widely patent. 6. The left circumflex has mild irregularities, but no flow-limiting stenosis. 7. The right coronary has a questionable stenosis at the ostium; however, intravascular ultrasound revealed that this is no significant disease. PTCA STENT OF THE LAD DIAGONAL: The stent used is a 2.0 x 30 mm Gary. Result was 0% residual stenosis. OVERALL IMPRESSION: Successful percutaneous transluminal angioplasty stent of the left anterior descending diagonal going from 95% initial stenosis to 0% residual. TRANSINT:[id number] Voice Confirmation ID: [id number] DOCUMENT ID: [id number] GREYSON SHERIFF MD at 1045 CC: [id number] DICTATION DATE: 01/06/19 1327 UNDERGROUND BOLTING MACHINE OPERATOR: 01/06/19 1422 DEP CLI 01/06/19 [place] [id number]
== END 2019-01-06 17:30 | disposition home or self-care (01) ==
LOC: D.CATH 09:01
PROVIDERS: Internal Medicine Interventional Cardiology
DX: I25.119 Atherosclerotic heart disease of native coronary artery with unspecified angina pectoris (principal); I25.719 Atherosclerosis of autologous vein coronary artery bypass graft(s) with unspecified angina pectoris; T82.855A Stenosis of coronary artery stent, initial encounter; Z01.812 Encounter for preprocedural laboratory examination
CPT/HCPCS: 93459; 92978; C9600

== ENCOUNTER 2019-01-24 12:35 | Observation (INO) | payer MEDICARE, BC ==
[~2019-01-24] VITALS: Ht 160 cm; Wt 64.1 kg
[2019-01-24] VITALS (7 sets, daily range): BP systolic 89–166; BP diastolic 61–90; BMI 25.0
--- NOTE | 2019-01-24 13:25 | NUR ---
REASSESSED PT CP/ DISCOMFORT AND PT REFUSED 2 ND NITRO AT THIS TIME.
[2019-01-24 13:31] LABS: BASOPHILS 0.3 % (0-2); EOSINOPHILS 5.7 % (0-7); HEMATOCRIT 39.3 % (36.0-48.0); HEMOGLOBIN 12.9 g/dL (12-16); IMMATURE GRANULOCYTES 0.2 % (0-5); LYMPHOCYTES 41.1 % (15-50); MCH 31.2 pg (26.0-34.0); MCHC 32.8 g/dL (31.0-37.0); MCV 95.2 fL (80.0-100.0); MEAN PLATELET VOLUME 9.9 fL (7.4-10.4); MONOCYTES 5.5 % (2-11); NEUTROPHILS 47.2 % (40-80); PLATELET COUNT 151 10x3/uL (130-400); RBC 4.13 10x6/uL (4.00-5.40); RDW 13.7 % (11.5-14.5); WBC 5.8 10x3/uL (4.8-10.8)
[2019-01-24 13:45] LABS: INR 1.03 (0.85-1.17)
--- NOTE | 2019-01-24 13:45 | NUR ---
ASSISTED PT WITH AMBULATING TO RESTROOM. WARM BLANKET PROVIDED, PT STABLE AT THIS TIME.
[2019-01-24 13:49] LABS: ALBUMIN 3.7 g/dL (3.4-5.0); ALKALINE PHOSPHATASE 106 U/L (46-116); ALT (SGPT) 19 U/L (10-68); BILIRUBIN - TOTAL 0.44 mg/dL (0.2-1.3); CALC OSMOLALITY 287 mosm/kg (275-300); CARBON DIOXIDE 26.7 mmol/L (21.0-32.0); CHLORIDE - SERUM 105 mmol/L (98-107); CREATININE - SERUM 0.9 mg/dL (0.6-1.3); GLUCOSE 101 mg/dL (74-106); POTASSIUM - SERUM 4.4 mmol/L (3.5-5.1); PROTEIN - SERUM 7.2 g/dL (6.4-8.2); SODIUM 143 mmol/L (136-145); UREA NITROGEN 20 mg/dL (7-18); eGFR NON AFRICAN AMERICAN 63 mL/min (90-120)
[2019-01-24 14:03] LABS: CKMB 0.8 U/L (0.0-3.6); CREATINE KINASE 66 UL (21-215); MAGNESIUM - SERUM 2.2 mg/dL (1.8-2.4)
[2019-01-24 14:05] LABS: TROPONIN-I < 0.017 ng/mL (0.000-0.060)
--- NOTE | 2019-01-24 14:24 | NUR ---
PT STABLE, CALLLIGHT WITHIN REACH, WILL CONTINUE TO MONITOR.
--- NOTE | 2019-01-24 15:11 | NUR ---
PT AAO X4 RATES PAIN 3/10. PROVIDED WARM PACK AND BLANKET. DENIES OTHER NEEDS, CALL LIGHT WITHIN REACH, WILL CONTINUE TO MONITOR.
[2019-01-24 16:12] LABS: CKMB 0.7 U/L (0.0-3.6); CREATINE KINASE 55 UL (21-215); TROPONIN-I 0.047 ng/mL (0.000-0.060)
--- NOTE | 2019-01-24 16:32 | NUR ---
PT STABLE, CALL LIGHT WITHIN REACH, DENIES NEEDS, WILL CONTINUE TO MONITOR.
--- NOTE | 2019-01-24 16:49 | NUR ---
REPORT CALLED TO [facility] FLOOR NURSE. ROOM 2125. PT STABLE, CALL LIGHT WITHIN REACH, WILL CONTINUE TO MONITOR.
--- NOTE | 2019-01-24 17:22 | NUR ---
TRANSFERED FROM ER BY W/Jose LOPEZ TO ROOM. CALL LIGHT IN REACH. WILL CONT. PLAN OF CARE.
--- NOTE | 2019-01-24 17:44 | NUR ---
RECIVED FROM ER PER WC TO ROOM 2125. ADMIT ASSESSMENT DONE PER RN
--- NOTE | 2019-01-24 18:39 | NUR ---
WITHOUT CHANGES OR DISTRESS AT THIS TIME.
--- NOTE | 2019-01-24 19:26 | NUR ---
PT IS AAO, UP AD PEGGY. PT HAS NO S/S OF DISTRESS. NAME AND DATE PLACED ON BOARD. PT BEDLOW AND CALL LIGHT IN REACH. WILL CPOC
[2019-01-24 20:27] LABS: PLT FUNCT.(P2Y12) PLAVIX 251 PRU (194-418)
--- NOTE | 2019-01-24 21:55 | NUR ---
INFORMATION GIVEN ON IMDUR. PT VERBALIZED UNDERSTANDING. PT IS AAO. DENIES ANY CHEST PAIN. STATES IT MOSTLY JUST A DISCOMFORT AND A DYSPNEA FROM PRESSURE. PT HAS NO S/S OF DISTRESS. TYLENOL GIVEN FOR HEADACE. PT WILL CALL FOR ASSIST WHEN NEEDED. NO S/S OF DISTRESS. WILL CPOC
[2019-01-24 22:43] LABS: CKMB 0.9 U/L (0.0-3.6); CREATINE KINASE 78 UL (21-215); TROPONIN-I 0.047 ng/mL (0.000-0.060)
--- NOTE | 2019-01-25 | NUR ---
PT ASLEEP. RESP EVEN AND UNLABORED. AROUSED TO NURSE IN ROOM. PT DENIES ANY NEEDS. STATES HER HEADACHE IS 2/10 DENIES ANY MEDICATION. PT HAS NO S/S OF DISTRESS. BEDLOW PT WILL CALL FOR ASSIST WHEN NEEDED. [facility]
[2019-01-25 04:00] VITALS: BP 182/83
[2019-01-25 05:06] LABS: BASOPHILS 0.2 % (0-2); EOSINOPHILS 5.4 % (0-7); HEMATOCRIT 33.5 % (36.0-48.0); IMMATURE GRANULOCYTES 0.2 % (0-5); LYMPHOCYTES 36.6 % (15-50); MCH 31.1 pg (26.0-34.0); MCHC 32.8 g/dL (31.0-37.0); MCV 94.6 fL (80.0-100.0); MONOCYTES 9.1 % (2-11); NEUTROPHILS 48.5 % (40-80); PLATELET COUNT 150 10x3/uL (130-400); RBC 3.54 10x6/uL (4.00-5.40); RDW 13.9 % (11.5-14.5); WBC 5.6 10x3/uL (4.8-10.8)
[2019-01-25 05:28] LABS: CALC OSMOLALITY 283 mosm/kg (275-300); CARBON DIOXIDE 27.4 mmol/L (21.0-32.0); CHLORIDE - SERUM 107 mmol/L (98-107); CKMB 0.9 U/L (0.0-3.6); CREATINE KINASE 40 UL (21-215); GLUCOSE 90 mg/dL (74-106); POTASSIUM - SERUM 3.9 mmol/L (3.5-5.1); SODIUM 141 mmol/L (136-145); TROPONIN-I 0.026 ng/mL (0.000-0.060); UREA NITROGEN 20 mg/dL (7-18); eGFR NON AFRICAN AMERICAN 56 mL/min (90-120)
--- NOTE | 2019-01-25 06:25 | NUR ---
MORNING MED GIVEN. NOURISHMENT GIVEN. PT DENIES ANY NEEDS. NS INFUSING TO LEFT FOREARM ORDERED. BEDLOW AND CALL LIGHT IN REACH. WILL CPOC
[2019-01-25 08:51] VITALS: BP 115/57
[2019-01-25 08:54] VITALS: Ht 160 cm; Wt 64.1 kg
--- NOTE | 2019-01-25 12:30 | NUR ---
REVIEWED AND AGREE WITH ASSESMENT.
[2019-01-25 12:48] VITALS: BP 110/59
[2019-01-25] MEDS ORDERED: COREG6.25 MG PO (15:11)
[2019-01-25 16:49] VITALS: BP 109/53
--- NOTE | 2019-01-25 17:08 | NUR ---
D/C INSTRUCTIONS GIVEN TO PT, IV REMOVED. PT TAKEN TO CAR VIA WHEELCHAIR.
--- NOTE | 2019-01-26 10:22 | DS ---
PATIENT:MUKESH ADEN :35 MEDICAL RECORD: [id number] DISCHARGE SUMMARY ADMISSION DATE: 01/24/19 DISCHARGE DATE: 01/25/19 DIAGNOSES: 1. Palpitation. 2. Chest pain. 3. Coronary artery disease. 4. Previous percutaneous transluminal coronary angioplasty stent. 5. Hypertension. 6. Hyperlipidemia. HISTORY OF PRESENT ILLNESS: Mrs. Aden presents with palpitations causing chest pain. It Is not like that of her previous angina. She had PTCA stent of an LAD diagonal last week. This has resolved the anginal symptomatology. She feels palpitations. Telemetry has shown nothing so far, she had an echocardiogram. This is overall normal. She is on a multiday monitor through our office. At this time of discharge, continue the multi-day monitor. Further care depends upon the results with the monitor. TRANSINT:[id number] Voice Confirmation ID: [id number] DOCUMENT ID: [id number] GRESYON SHERIFF MD at 1022 CC: [id number] DICTATION DATE: 01/25/19 1240 RN OR LPN: 01/26/19 0040 DIS IN 01/25/19 [place] [id number] [place] [id number]
--- NOTE | 2019-01-26 10:22 | EC ---
PATIENT:MUKESH ADEN DATE OF SERVICE: 01/24/19 SEX: F MEDICAL RECORD: [id number] DATE OF : 35 LOCATION:D.M2 D.212 AGE OF PATIENT: 83 ADMISSION DATE: 01/24/19 REFERRING PHYSICIAN: INTERPRETING PHYSICIAN: GREYSON SQUIRES MD ECHOCARDIOGRAM REPORT ECHO CHARGES 4 ECHO COMPLETE Date: 01/25/19 CLINICAL DIAGNOSIS: SOB ECHOCARDIOGRAPHIC MEASUREMENTS (adult normal given) AC root (d.<3.7cm) 2.7 cm LV Septum d (<1.2 cm> 1.7 cm Valve Excursion 1.3 cm LV Septum (systole) 2.5 cm Left Atria (s.<4.0cm> 3.4 cm LVPW d(<1.2cm) 0.9 cm RV (d.<2.3cm) 2.0 cm LVPW (sytole) 1.1 cm LV diastole(<5.6CM) 4.1 cm MV E-F(>70mm/sec) cm LV systole 2.6 cm LVOT Diameter 1.8 cm MV exc.(>10mm) cm Est.ejection fraction (50-75%) % DOPPLER: LVIT cm/sec A 59 cm/sec E 86 cm/sec LA cm/sec RVSP 27.6 mmHg LVOT 87 cm/sec AOP1/2T m/s Asc. Ao 117 cm/sec RVOT 79 cm/sec RA cm/sec PA 82 cm/sec AV Gradient Peak 5.5 mmHg AV Mean 2.6 mmHg AV Area 2.2 cm MV Gradient Peak 3.1 mmHg MV Mean 1.6 mmHg MV Area cm COMMENTS: Sinter Feeder: [facility] [employer] Demonstrator: 1 Dr. Squires TAPE# PACS Pericardial Effusion N DATE OF SERVICE: 01/25/2019 FINDINGS: 1. Left ventricular chamber size is within normal limits. Left ventricular systolic function is normal. Overall ejection fraction estimated at 60%. 2. Left atrium, right atrium, right ventricular chamber sizes are within normal limits. 3. Valvular structures have normal structure and motion. 4. Doppler interrogation reveals mild aortic insufficiency, mild mitral regurgitation, mild tricuspid regurgitation, no other valvular insufficiency or ECHOCARDIOGRAM REPORT [id number] MUKESH ADEN stenosis. Pulmonary systolic pressure is estimated at 28 mmHg. 5. No evidence of pericardial effusion or left ventricular thrombus. TRANSINT:[id number] Voice Confirmation ID: [id number] DOCUMENT ID: [id number] GREYSON SQUIRES MD at 1022 CC: [id number] DICTATION DATE: 01/25/19 1230 PORCELAIN ENAMELER: 01/25/19 1555 DIS IN 01/25/19 [facility] [address] [place] [id number]
== END 2019-01-25 17:09 | disposition home or self-care (01) ==
LOC: D.ER 12:35 → D.EDHOLD 15:34 → OBSVTIME 15:34 → D.M2 16:21
PROVIDERS: Emergency Medicine; ADMIT Internal Medicine Nephrology
DX: R00.2 Palpitations (principal); I25.10 Atherosclerotic heart disease of native coronary artery without angina pectoris; I10 Essential (primary) hypertension; E78.5 Hyperlipidemia, unspecified; Z86.73 Personal history of transient ischemic attack (TIA), and cerebral infarction without residual deficits; K21.9 Gastro-esophageal reflux disease without esophagitis; D50.9 Iron deficiency anemia, unspecified; N17.9 Acute kidney failure, unspecified; E03.9 Hypothyroidism, unspecified

== ENCOUNTER → 2019-02-20 12:37 | Outpatient (CLI) | payer MEDICARE, BC ==
[2019-01-25 08:54] VITALS: BMI 25.0
[~2019-02-20 12:37] MED LIST changes: +COREG6.25 MG PO
== END | disposition home or self-care (01) ==
LOC: D.US 12:37
PROVIDERS: ATTEND Internal Medicine Interventional Cardiology
DX: M79.605 Pain in left leg (principal); M79.601 Pain in right arm; I25.10 Atherosclerotic heart disease of native coronary artery without angina pectoris

== ENCOUNTER 2019-05-26 09:27 | Outpatient (CLI) | payer MEDICARE, BC ==
[~2019-05-26] VITALS: Ht 160 cm; Wt 63.6 kg
--- NOTE | ~2019-05-26 | HEMODYNAMI ---
PATIENT:MUKESH ADEN MEDICAL RECORD: [id number] : 35 LOCATION:D.CAT ADMISSION DATE: 05/26/19 Generatedon:05/26/201911:21 Patient name: MUKESH ADEN Patient #: [id number] SSN: [id number] : 1935 Date of study: 05/26/2019 Page: Of Hemodynamic Procedure Report Patient Data Patient Demographics Procedure consent was obtained First Name: MUKESH Gender: Female Last Name: KEIKO : 1935 Middle Initial: ANTONI Age: 83 year(s) Patient #: [id number] Race: SSN: [id number] Additional ID: [id number] Contact details Address: [address] [place] [address] State: [place] City: [place] Zip code: [address] Past Medical History Allergies Allergen Reaction Date Comments Reported Sulfa drugs 01/18/2015 Other allergy 01/18/2015 cipro Other allergy 01/18/2015 niacin Amoxicillin 01/18/2015 Codeine 01/18/2015 Other allergy 11/17/2016 amoxicillin, cipro, codeine, Niacin, Sulfa Other allergy 04/11/2018 cipro Other allergy 01/06/2019 CIPRO, SULFA, CODEINE, NIACIN, AMOXICILLIN Admission Admission Data Admission Date: 05/26/2019 Admission Time: 9:27 Arrival Date: 05/26/2019 Arrival Time: 11:30 Admit Source: Other Insurance Payor: Medicare Height (in.): 62.99 BSA: 1.66 (m2) Height (cm.): 160 BMI: 24.61 (kg/m2) Weight (lbs.): 138.89 Weight (kg.): 63 Lab Results Lab Result Date: 05/26/2019 Lab Result Time: 0:00 Biochemistry Name Units Result Min Max BUN mg/dl 19 --(----)*- 7 18 Creatinine mg/dl 0.8 --(-*--)-- 0.6 1.3 CBC Name Units Result Min Max Hemoglobin g/dl 11.2 *-(----)-- 13.5 17.5 Procedure Procedure Types Cath Procedure Diagnostic Procedure [facility] w/Coronaries w/Grafts FFR/IVUS FFR Initial Sedation Charges Moderate Sedation up to 15 minutes PCI Procedure Coronary Stent Coronary Stent Initial Procedure Description Procedure Date Procedure Date: 05/26/2019 Procedure Start Time: 11:00 Procedure End Time: 11:20 Procedure Staff Name Function Sergei Squires MD Performing Physician Velia Sánchez RT Monitor Zack Venegas RT Scrub Kristi Donis RN Nurse Procedure Data Cath Procedure Fluoroscopy Diagnostic fluoroscopy Total fluoroscopy Time: 4.7 time: 4.7 min min Diagnostic fluoroscopy Total fluoroscopy dose: 521 dose: 521 mGy mGy Contrast Material Contrast Material Type Amount (ml) Isovue 370 120 Entry Location Entry Primary Successful Side Size Upsize Upsize Entry Closure Succes sful Closure Location (Fr) 1 (Fr) 2 (Fr) Remarks Device Remarks Femoral Right 5 Fr 6 Fr Exoseal artery Short Estimated blood loss: 5 ml Diagnostic catheters Device Type Used For End Catheter Placement MULTIPACK Pigtail 5 Fr LV Angiography catheter MULTIPACK JL 4.0 5Fr Left Coronary catheter Angiography MULTIPACK 3DRC 5Fr Right Coronary catheter Angiography Procedure Complications No complications Procedure Medications Medication Administration Route Dosage 0.9% NaCl I.V. 100 ml/hr Oxygen etCO2 Nasal cannula 2 l/min Lidocaine 2% added to field 20 Heparin Flush Bag added to field 2 bags (1000units/500ml NS) Versed I.V. 2 mg Fentanyl I.V. 50 mcg Heparin Bolus I.V. 4000 units Hemodynamics Rest BSA: 1.66 (m2) HGB: 11.2 (g/dl) O2 Consumption: Estimated: 149.52 (ml/min) O2 Co nsumption indexed: Estimated:90.07 (ml/min/m) Heart Rate: 72 (bpm) Pressure Samples Time Site Value (mmHg) Purpose Heart Use Rate(bpm) 11:01 LV 76/12,26 Snapshot 60 Snapshots Pre Cath Intra NCS Post Cath Vital Signs Time Heart Resp SPO2 etCO2 NIBP (mmHg) Rhythm Pain Sedation Rate (ipm) (%) (mmHg) Status Level (bpm) 10:43:10 66 12 96 34.6 124/68(101) NSR 0 (11) 10(A) , No pain 10:47:24 68 18 98 29.3 131/69(102) NSR 0 (11) 10(A) , No pain 10:51:40 64 13 97 26.8 99/52(73) NSR 0 (11) 9(A) , No pain 10:55:52 60 18 98 28.2 93/44(74) NSR 0 (11) 9(A) , No pain 11:00:00 57 13 96 19 91/47(67) SB 0 (11) 9(A) , No pain 11:04:07 58 12 98 29.7 90/45(66) SB 0 (11) 9(A) , No pain 11:08:13 60 12 98 9.7 102/53(82) NSR 0 (11) 9(A) , No pain 11:12:27 58 11 98 9.7 90/43(67) SB 0 (11) 9(A) , No pain 11:16:37 58 11 98 29.7 88/42(69) SB 0 (11) 9(A) , No pain Medications Time Medication Route Dose Verified Delivered Reason Notes Effectiveness by by 10:42:18 0.9% NaCl I.V. 100 Sergei Kristi used for ml/hr Shaw Donis geography department chair 10:42:25 Oxygen etCO2 2 Sergei Kristi used for Nasal l/min Shaw Donis procedure cannula RN 10:42:29 Lidocaine 2% added 20ml Sergei Sergei for local to vial Shaw Squires MD anesthetic field 10:42:33 Heparin Flush added 2 Sergei Sergei used for Bag to bags Shaw Squires MD procedure (1000units/500ml field NS) 10:49:01 Versed I.V. 2 mg Sergei Kristi for sedation Shaw Donis RN 10:49:06 Fentanyl I.V. 50 Sergei Kristi for sedation mcg Shaw Donis RN 11:10:15 Heparin Bolus I.V. 4000 Sergei Kristi for verif ied units Shaw Donis anticoagulation with Dr. ZAIRA Squires Procedure Log Time Note 10:30:32 Zack Venegas RT(R) sent for patient. Start room use. 10:37:41 Time tracking: Regular hours (M-F 7:00 - 5:00) 10:37:46 Plan of Care:Hemodynamics will remain stable., Cardiac rhythm will remain stable., Comfort level will be maintained., Respiratory function will remain adequate., Patient/ family verbilizes understanding of procedure., Procedure tolerated without complication., Recovers from procedure without complications.. 10:38:02 Patient received from Pre/Post Procedure Room to [facility] Alert and oriented. Tansferred to table in Supine position. 10:38:07 Warm blankets applied, and carla hugger turned on for patient comfort. 10:38:07 Correct patient and procedure confirmed by team. 10:38:08 Signed procedure consent form obtained from patient. 10:38:10 ECG and BP/O2 sat monitors applied to patient. 10:42:06 Vital chart was started 10:42:18 0.9% NaCl 100 ml/hr I.V. was administered by Kristi Donis RN; used for procedure; 10:42:25 Oxygen 2 l/min etCO2 Nasal cannula was administered by Kristi Donis RN; used for procedure; 10:42:29 Lidocaine 2% 20ml vial added to field was administered by Sergei Squires MD; for local anesthetic; 10:42:33 Heparin Flush Bag (1000units/500ml NS) 2 bags added to field was administered by Sergei Squires MD; used for procedure; 10:43:22 Baseline sample Acquired. 10:43:25 Rhythm: sinus rhythm 10:43:26 Full Disclosure recording started 10:43:46 H&P Date Dictated: 05/24/2019 Within 30 days and on chart., H&P Addendum completed by physician on day of procedure. (MUST COMPLETE FOR ALL OUTPATIENTS). 10:43:48 Pre-procedure instructions explained to patient. 10:43:48 Pre-op teaching completed and patient verbalized understanding. 10:43:50 Family in waiting room. 10:43:52 Patient NPO since Midnight. 10:43:54 Is the patient allergic to Iodine/contrast media? No. 10:44:31 Lab Result : Hemoglobin 11.2 g/dl 10:44:31 Lab Result : Creatinine 0.8 mg/dl 10:44:31 Lab Result : BUN 19 mg/dl 10:45:38 Was the patient premedicated? No 10:45:39 Is patient on blood thinner?Yes 10:45:41 ACC The patient was administered the following blood thiners within the last 24 hours: ACCAspirin, ACCPlavix 10:45:43 Patient diabetic? No. 10:45:45 Previous problem with sedation/anesthesia? No ? 10:45:47 Snore? No 10:45:48 Sleep apnea? No 10:45:49 Deviated septum? No 10:46:05 Opens mouth fully? Yes 10:46:06 Sticks out tongue? Yes 10:46:07 Airway obstruction? No ? 10:46:10 Dentures? No ? 10:46:16 Pre procedure: right dorsailis pedis pulse 2+ Normal; easily identifiable; not easily obliterated 10:46:18 Pre procedure: left dorsailis pedis pulse 2+ Normal; easily identifiable; not easily obliterated 10:46:20 Patient pain scale 0/10 ?. 10:46:28 IV patent on arrival in left forearm with 0.9% NaCl at [facility]. 10:48:05 Lab results completed and on chart. 10:48:09 Right groin area was prepped with chlora-prep and draped in sterile fashion 10:48:10 Alarms reviewed by R. N. 10:48:10 Sharps counted by scrub and verified by R.N. 10:48:12 Physician arrived 10:48:12 --------ALL STOP TIME OUT------ 10:48:12 Final Timeout: patient, procedure, and site verified with staff and physician. All members of the team are in agreement. 10:48:14 Right groin site verified by team. 10:48:17 Maximum allowable Isovue 370 dose 300ml. Physician notified. (300ml for normal creatinines. For patients with creatinine of 1.7 or higher multiply weight(kg) x 5 divided by creatinine.) 10:48:21 Fire Safety Assessment: A--An alcohol-based skin anteseptic being used preoperatively., C--Open oxygen or nitrous oxide is being used., D--An ESU, laser, or fiber-optic light is being used. 10:48:25 Physical assessment completed. ASA score P 2 - A patient with mild systemic disease as per Sergei Squires MD. 10:48:29 Sedation plan: IV Moderate Sedation Medication:Versed, Fentanyl 10:49:01 Versed 2 mg I.V. was administered by Kristi Donis RN; for sedation; 10:49:06 Fentanyl 50 mcg I.V. was administered by Kristi Donis RN; for sedation; 10:51:36 Use device set Femoral Dx 10:51:37 ACIST Syringe (37575) opened to sterile field. 10:51:37 Bag Decanter (2002S) opened to sterile field. 10:51:37 Medline Cath Pack ([id number]) opened to sterile field. 10:51:39 ACIST Hand Control (66997) opened to sterile field. 10:51:39 ACIST Manifold (99290) opened to sterile field. 10:51:40 DIAGNOSTIC Multipack 5Fr catheter set (NF2188) opened to sterile field. 10:51:40 Tegaderm 4 x 4 (1626W) opened to sterile field. 10:51:42 EMERALD Guide Wire (581-346) opened to sterile field. 10:51:45 SHEATH 5FR [place] (AYF838) opened to sterile field. 10:53:53 Admit Source: Other 10:54:00 Patient Height : 62.99 inches 10:54:04 Patient Weight : 138.89 lbs 10:54:12 Insurance Payor : Medicare 10:54:16 Arrival Date: 05/26/2019 11:30:00 AM 10:59:02 Procedure started. 11:00:01 Local anesthetic to right femoral artery with Lidocaine 2% by Sergei Squires MD.INITIAL ACCESS ONLY 11:00:16 A 5 Fr sheath was inserted into the Right Femoral artery 11:00:36 A MULTIPACK Pigtail 5 Fr catheter was advanced over the wire and used for LV Angiography. 11:01:34 LV hemodynamics recorded. 11:01:35 LV gram done using COLEMAN 11:01:38 Injector settings: Ml/sec: 5, Volume: 15, 11:02:00 EF : 50 % 11:02:04 Catheter removed. 11:02:08 A MULTIPACK JL 4.0 5Fr catheter was advanced over the wire and used for Left Coronary Angiography. 11:02:31 LCA angiography performed. 11:02:37 Injector settings: Ml/sec: 3, Volume: 6, 11:04:01 Catheter removed. 11:04:08 A MULTIPACK 3DRC 5Fr catheter was advanced over the wire and used for Right Coronary Angiography. 11:04:45 KRISHNAN angiography performed. 11:04:46 RCA angiography performed. 11:04:49 Injector settings: Ml/sec: 3, Volume: 6, 11:05:14 SHEATH 6FR [place] (CIC208) opened to sterile field. 11:05:15 INFLATOR Merit BasixCompak (FI6450) opened to sterile field. 11:05:15 Noti Verrata Plus pressure wire (23702X) opened to sterile field. 11:05:43 Catheter removed. 11:05:45 Proceeding to intervention. 11:05:54 Sheath upsized to a 6 Fr Short. 11:06:46 GUIDE 6FR XBLAD 3.5 catheter ([id number]) opened to sterile field. 11:06:56 6 Fr xblad 3.5 guide catheter was inserted over the wire 11:07:03 FFR/IFR wire advanced. 11:08:27 Baseline FFR 1. 11:10:03 Diag1 lesion measured at 0.73 with IFR 11:10:15 Heparin Bolus 4000 units I.V. was administered by Kristi Donis RN; for anticoagulation; verified with Dr. Squires 11:11:17 Wire removed. 11:11:52 The CALEB RX 2.0 x 8 stent ([id number]) was advanced then removed because of failure to cross lesion 11:12:57 Inflate balloon Inflation number: 1 A EUPHORA 2.0 x 20 Balloon ([id number]) was prepped and advanced across the 1st Diag 75, then inflated to 21 MALACHI for 0:10 (min:sec) . 11:13:05 Inflation number: 2 The EUPHORA 2.0 x 20 Balloon ([id number]) was reinflated across the 1st Diag , to 21 MALACHI for 0:10 (min:sec) . 11:13:14 Inflation number: 3 The EUPHORA 2.0 x 20 Balloon ([id number]) was reinflated across the 1st Diag , to 21 MALACHI for 0:10 (min:sec) . 11:14:35 Place stent Inflation Number: 4 A CALEB RX 2.0 x 8 stent ([id number]) was prepped and advanced across the 1st Diag . The stent was deployed at 13 MALACHI for 0:10 (min:sec) . 11:15:42 Stent catheter was removed intact over wire. 11:16:29 FFR/IFR wire advanced. 11:16:58 Baseline FFR 1. 11:17:05 Diag1 lesion measured at 1.13 with IFR 11:17:11 Wire removed. 11:18:12 Guide catheter removed. 11:18:25 EXOSEAL 6Fr (EX600) opened to sterile field. 11:18:36 Sheath removed intact; hemostasis achieved with Exoseal to the Right Femoral artery. 11:18:37 Procedure ended.(Physican Out) 11:19:26 Fluoroscopy time 04.70 minutes. 11:19:30 Flurop Dose total: 521 11:19:30 Fluoroscopy dose: 521 mGy 11:19:33 Contrast amount:Isovue 370 120ml. 11:19:35 Sharps counted by scrub and verified by R.N. 11:19:36 Insertion/operative site no bleeding no hematoma. 11:19:39 Post-op/insertion site Right Femoral artery dressed using a 4 x 4 and Tegaderm. 11:19:42 Post procedure rhythm: unchanged. 11:19:45 Estimated blood loss: 5 ml 11:19:46 Post procedure instruction explained to patient.Patient verbalizes understanding. 11:19:47 Patient needs reinforcement of post procedure teaching. 11:20:18 Procedure type changed to Cath procedure, Diagnostic procedure, LHC, LHC w/Coronaries w/Grafts, FFR/IVUS, FFR Initial, Sedation Charges, Moderate Sedation up to 15 minutes, PCI procedure, Coronary Stent, Coronary Stent Initial 11:20:19 Procedure and supply charges have been captured, reviewed, submitted and are correct. 11:20:24 Procedure Complication : No complications 11:20:26 Vital chart was stopped 11:20:27 See physician's report for complete and final results. 11:20:32 Report given to Pre/Post Procedure Room. 11:20:35 Patient transfered to Pre/Post Procedure Room with Stretcher. 11:20:37 Procedure ended. 11:20:37 Full Disclosure recording stopped 11:20:43 ACC-PCI Only Patient was given prescriptions, or instructed by Sergei Squires MD to start/continue the following medications upon discharge: Plavix 11:20:47 End room use (Document Last) Intervention Summary Intervention Notes Time ActionType Lesion and Equipment Used Action# Pressure Duration Attributes 11:11:52 Discard CALEB RX 2.0 x Stent 8 stent ([id number]) 11:12:57 Inflate 1st Diag EUPHORA 2.0 x 1 21 00:10 balloon 20 Balloon ([id number]) 11:13:05 Reinflate 1st Diag EUPHORA 2.0 x 2 21 00:10 balloon 20 Balloon ([id number]) 11:13:14 Reinflate 1st Diag EUPHORA 2.0 x 3 21 00:10 balloon 20 Balloon ([id number]) 11:14:35 Place stent 1st Diag CALEB RX 2.0 x 4 13 00:10 8 stent ([id number]) Device Usage Item Name Manufacture Quantity Catalog Hospital Part Current Minimal Lot# / Number Charge Number Stock Stock Serial# Code ACIST Syringe Acist 1 33099 713931 727171 479831 20 (67924) Medical Systems Inc Bag Decanter Microtek 1 2001S 501536 30619 397872 5 (2001S) Medical Inc. Medline Cath Medline 1 [id number] 113593 42663 732716 5 Pack ([id number]) ACIST Hand Acist 1 22736 451781 142464 327890 5 Control Medical (47135) Systems Inc ACIST Manifold Acist 1 50100 535287 570648 284467 5 (79487) Medical Systems Inc DIAGNOSTIC Cardinal 1 ON4594 711547 63920 091964 30 Multipack 5Fr Health catheter set (CF0413) Tegaderm 4 x 4 3M 1 1626W 969578 395846 533528 5 (1626W) EMERALD Guide Cardinal 1 502-455 651079 931313 401710 5 Wire (502-455) Health SHEATH 5FR Terumo 1 OBE790 763641 411818 795975 5 [place] (UWQ348) MULTIPACK Cardinal 1 563279 5 Pigtail 5 Fr Health catheter MULTIPACK JL Cardinal 1 307901 5 4.0 5Fr Health catheter MULTIPACK 3DRC Cardinal 1 026576 5 5Fr catheter Health SHEATH 6FR Terumo 1 NJK861 566896 198579 521220 40 [place] (PVP459) INFLATOR Merit Merit 1 FB6419 264580 346130 108767 15 [facility] Medical (GN3521) Noti Noti 1 45013U 619904 248217384 525528 5 Verrata Plus pressure wire (67843S) GUIDE 6FR Cardinal 1 [id number] 123260 220594 294866 10 XBLAD 3.5 Health catheter ([id number]) CALEB RX 2.0 x Medtronic 1 [id number] 232531 2290766 569991 5 [id number] 8 stent ([id number]) EUPHORA 2.0 x Medtronic 1 [id number] 120815 268877 254845 5 [id number] 20 Balloon ([id number]) EXOSEAL 6Fr Cardinal 1 EX600 088377 686658 146510 10 (EX600) Health Signature Audit Roy Stage Time Signature Unsigned Intra-Procedure 05/26/2019 Velia Sánchez 11:21:23 AM RT(R) Signatures Monitor : Velia Sánchez RT Signature : Date : Time : [place] [id number] [facility] [place] [address]
[2019-05-26] MEDS ORDERED: NORVASC5 MG PO (09:44)
[2019-05-26] MEDS ORDERED: ESTRACE 0.5 MG0.5 MG PO (09:44)
[2019-05-26] MEDS ORDERED: ocuvite PO (09:45)
[2019-05-26] MEDS ORDERED: LOPRESSOR25 MG PO (09:46)
[2019-05-26] MEDS ORDERED: ISOSORBIDE DINI30 MG PO (09:46)
[2019-05-26 10:01] VITALS: BP 133/61; Ht 160 cm; Wt 63.6 kg
[2019-05-26 10:10] LABS: BASOPHILS 0.2 % (0-2); EOSINOPHILS 9.5 % (0-7); HEMATOCRIT 33.4 % (36.0-48.0); HEMOGLOBIN 11.2 g/dL (12-16); IMMATURE GRANULOCYTES 0.2 % (0-5); LYMPHOCYTES 35.3 % (15-50); MCH 30.9 pg (26.0-34.0); MCHC 33.5 g/dL (31.0-37.0); MEAN PLATELET VOLUME 9.4 fL (7.4-10.4); MONOCYTES 8.6 % (2-11); NEUTROPHILS 46.2 % (40-80); PLATELET COUNT 163 10x3/uL (130-400); RBC 3.63 10x6/uL (4.00-5.40); WBC 5.5 10x3/uL (4.8-10.8)
[2019-05-26 10:23] LABS: ANION GAP 11.8 mmol/L (8-16); CALCIUM 9.2 mg/dL (8.5-10.1); CARBON DIOXIDE 26.2 mmol/L (21.0-32.0); CREATININE - SERUM 0.8 mg/dL (0.6-1.3)
--- NOTE | 2019-05-26 11:30 | NUR ---
PT ARRIVED BY STRETCHER. PLACED ON MONITORS. ASSESSMENT COMPLETED. FAMILY AT BEDSIDE.
--- NOTE | 2019-05-26 11:48 | NUR ---
RIGHT GROIN DRESSING C/D/I. NO S/S OF HEMATOMA NOTED. PT DENIES NAUSEA/PAIN. VSS.
--- NOTE | 2019-05-26 12:10 | NUR ---
RIGHT GROIN DRESSING C/D/I. NO S/S OF HEMATOMA NOTED. DENIES NAUSEA. REPORTS HAVING SMALL SHARP CHEST PAIN OCCASIONALLY. VSS.
--- NOTE | 2019-05-26 12:25 | NUR ---
DR. SHARITA FIGUEROA AND SPOKE WITH PT AND PT'S FAMILY.
--- NOTE | 2019-05-26 12:55 | NUR ---
PT RESTING COMFORTABLY. FAMILY AT BEDSIDE. VSS. RIGHT GROIN DRESSING C/D/I. NO S/S OF HEMATOMA NOTED. CALL LIGHT WITHIN REACH.
--- NOTE | 2019-05-26 13:49 | NUR ---
PT ON BEDPAN. VOIDED APPROX 800CC OF CLEAR YELLOW URINE WITHOUT DIFFICULTY. THEO-CARE GIVEN. RIGHT GROIN DRESSING C/D/I. NO S/S OF HEMATOMA NOTED. VSS AT THIS TIME. FAMILY AT BEDSIDE.
--- NOTE | 2019-05-26 14:20 | NUR ---
RIGHT GROIN DRESSING C/D/I. NO S/S OF HEMATOMA NOTED. VSS. HEAD OF BED INC TO 30 DEGREES. TOLERATED WELL. PT GIVEN COFFEE AND SANDWICH TRAY. DENIES NAUSEA. FAMILY AT BEDSIDE. CALL LIGHT WITHIN REACH.
--- NOTE | 2019-05-26 15:00 | NUR ---
RIGHT GROIN DRESSING C/D/I. NO S/S OF HEMATOMA NOTED. RIGHT AC PIV D/C'D WITH CATH TIP INTACT. PT TOLERATED WELL. PT INSTRUCTED TO GET UP AND DRESSED. FAMILY AT BEDSIDE FOR ASSISTANCE. CALL LIGHT WITHIN REACH.
--- NOTE | 2019-05-26 15:20 | NUR ---
DISCUSSED DISCHARGE INSTRUCTIONS WITH PT AND PT'S FAMILY. THEY VOICED UNDERSTANDING.
--- NOTE | 2019-05-26 15:25 | NUR ---
PT TAKEN OUT TO VEHICLE BY WHEELCHAIR. NO S/S OF DISTRESS NOTED. ALL BELONGINGS AND PAPERWORK IN HAND.
--- NOTE | 2019-05-29 09:50 | OP ---
PATIENT NAME: MUKESH ADEN MEDICAL RECORD: [id number] :35 LOCATION:D.CAT ADMISSION DATE: SURGEON: GREYSON SHERIFF MD DATE OF OPERATION: 05/26/2019 PROCEDURES: 1. PTCA stent LAD diagonal. 2. IFR. 3. Left heart catheterization. 4. Selective coronary angiography. 5. Left ventriculogram. 6. KRISHNAN angiography. INDICATION: Unstable angina and coronary artery disease. PROCEDURE IN DETAIL: After informed consent was obtained and after a detailed description of risks, benefits as well as alternative therapies, the patient elected to proceed with angiogram and angioplasty. The right femoral area was prepped and draped in normal sterile fashion. Right femoral artery was cannulated via modified Seldinger technique with placement of 6-Wallisian sheath. All catheters exchanged through this sheath. FINDINGS: The left ventriculogram was performed in standard 30-degree COLEMAN view reveals ejection fraction 50%. SELECTIVE CORONARY ANGIOGRAPHY: 1. Left main showed no significant angiographic disease. 2. Left anterior descending has previously placed stents in the LAD diagonal. These are significantly restenosed and there is a stenosis after the stent that is at least 75%. IFR was abnormal at 0.73. After the diagonal, the LAD has 90% stenosis. 3. KRISHNAN to the distal LAD is widely patent. Distal LAD is widely patent as well. 4. The left circumflex has mild irregularities, but no flow-limiting stenosis. 5. Right coronary artery has moderate irregularities, but no flow-limiting stenosis. PTCA STENT OF THE LAD DIAGONAL: The stent used was a 2.0 x 8 mm Gary. After this, the IFR normalized. OVERALL IMPRESSION: Successful percutaneous transluminal coronary angioplasty stent of the left anterior descending diagonal going from 75+ percent initial stenosis to 0% residual. TRANSINT:[id number] Voice Confirmation ID: [id number] DOCUMENT ID: [id number] GREYSON SHERIFF MD at 0950 CC: [id number] DICTATION DATE: 05/26/19 1122 WEAVER APPRENTICE: 05/26/19 1226 DEP CLI 05/26/19 [place] [address]
== END 2019-05-26 15:15 | disposition home or self-care (01) ==
LOC: D.CATH 09:27
PROVIDERS: ATTEND Internal Medicine Interventional Cardiology
DX: I25.110 Atherosclerotic heart disease of native coronary artery with unstable angina pectoris (principal); T82.855A Stenosis of coronary artery stent, initial encounter; Z01.812 Encounter for preprocedural laboratory examination

== ENCOUNTER → 2019-07-13 13:40 | Outpatient (CLI) | payer MEDICARE, BC ==
[2019-05-26 10:01] VITALS: BMI 24.8
[~2019-07-13 13:40] MED LIST changes: +ISOSORBIDE DINI30 MG PO; +LOPRESSOR25 MG PO; +ocuvite PO
== END | disposition home or self-care (01) ==
LOC: D.US 10:30
PROVIDERS: ATTEND Internal Medicine Cardiovascular Disease
DX: I65.23 Occlusion and stenosis of bilateral carotid arteries (principal)

== ENCOUNTER 2019-09-17 07:31 | Observation (INO) | payer MEDICARE, BC ==
[~2019-09-17] VITALS: Ht 160 cm; Wt 68.6 kg
--- NOTE | ~2019-09-17 | HEMODYNAMI ---
PATIENT:MUKESH ADEN MEDICAL RECORD: [id number] : 35 LOCATION[facility] [id number] ADMISSION DATE: 09/17/19 Generatedon:09/18/201911:28 Patient name: MUKESH ADEN Patient #: [id number] SSN: [id number] : 1935 Date of study: 09/18/2019 Page: Of Hemodynamic Procedure Report Patient Data Patient Demographics Procedure consent was obtained First Name: MUKESH Gender: Female Last Name: KEIKO : 1935 Middle Initial: ANTONI Age: 83 year(s) Patient #: [id number] Race: SSN: [id number] Additional ID: [id number] Contact details [address]: [address] [place] [address] State: [place] City: [place] Zip code: [address] Past Medical History Allergies Allergen Reaction Date Comments Reported Sulfa drugs 01/18/2015 Other allergy 01/18/2015 cipro Other allergy 01/18/2015 niacin Amoxicillin 01/18/2015 Codeine 01/18/2015 Other allergy 11/17/2016 amoxicillin, cipro, codeine, Niacin, Sulfa Other allergy 04/11/2018 cipro Other allergy 01/06/2019 CIPRO, SULFA, CODEINE, NIACIN, AMOXICILLIN Other allergy 09/18/2019 [facility] Admission Admission Data Admission Date: 09/17/2019 Admission Time: 8:47 Arrival Date: 09/18/2019 Arrival Time: 0:00 Admit Source: Other Room #: D.2126 Height (in.): 64 BSA: 1.74 (m2) Height (cm.): 162.56 BMI: 25.92 (kg/m2) Weight (lbs.): 151 Weight (kg.): 68.49 Lab Results Lab Result Date: 09/18/2019 Lab Result Time: 0:00 Biochemistry Name Units Result Min Max BUN mg/dl 19 --(----)*- 7 18 Creatinine mg/dl 1 --(--*-)-- 0.6 1.3 eGFR ml/min 56 *-(----)-- 90 120 NONAFRICAN CBC Name Units Result Min Max Hemoglobin g/dl 13.1 -*(----)-- 13.5 17.5 Procedure Procedure Types Cath Procedure Diagnostic Procedure LHC LHC w/Coronaries w/Grafts Sedation Charges Moderate Sedation up to 15 minutes Procedure Description Procedure Date Procedure Date: 09/18/2019 Procedure Start Time: 11:14 Procedure End Time: 11:22 Procedure Staff Name Function Sergei Squires MD Performing Physician Summer Barriga RT Monitor Velia Sánchez RT Scrub Jana Triplett RN Nurse Procedure Data Cath Procedure Fluoroscopy Diagnostic fluoroscopy Total fluoroscopy Time: 1.8 time: 1.8 min min Diagnostic fluoroscopy Total fluoroscopy dose: 328 dose: 328 mGy mGy Contrast Material Contrast Material Type Amount (ml) Isovue 300 62 Entry Location Entry Primary Successful Side Size Upsize Upsize Entry Closure Succes sful Closure Location (Fr) 1 (Fr) 2 (Fr) Remarks Device Remarks Femoral Right 5 Fr Exoseal artery Estimated blood loss: 10 ml Diagnostic catheters Device Type Used For End Catheter Placement MULTIPACK Pigtail 5 Fr Ventriculography catheter MULTIPACK JL 4.0 5Fr Procedure catheter MULTIPACK 3DRC 5Fr Procedure catheter Procedure Complications No complications Procedure Medications Medication Administration Route Dosage 0.9% NaCl I.V. 100 ml/hr Oxygen NC 3 l/min Lidocaine 2% added to field 20 Heparin Flush Bag added to field 2 bags (1000units/500ml NS) Versed I.V. 0.5 mg Fentanyl I.V. 25 mcg Hemodynamics Rest BSA: 1.74 (m2) HGB: 13.1 (g/dl) O2 Consumption: Estimated: 160.97 (ml/min) O2 Co nsumption indexed: Estimated:92.51 (ml/min/m) Heart Rate: 79 (bpm) Snapshots Pre Cath Intra NCS Post Cath Vital Signs Time Heart Resp SPO2 etCO2 NIBP Rhythm Pain Sedation Rate (ipm) (%) (mmHg) (mmHg) Status Level (bpm) 10:52:44 80 45 92 33.5 97/60(80) NSR 0 (11) 10(A) , No pain 10:56:47 77 61 93 32 105/57(76) NSR 0 (11) 10(A) , No pain 11:00:55 75 76 93 31.2 92/50(70) NSR 0 (11) 10(A) , No pain 11:04:57 73 26 97 17.1 99/55(76) NSR 0 (11) 10(A) , No pain 11:09:03 71 69 91 32 83/50(57) NSR 0 (11) 10(A) , No pain 11:13:04 72 52 90 17.1 82/43(59) NSR 0 (11) 9(A) , No pain 11:17:04 76 22 92 34.2 95/48(68) NSR 0 (11) 9(A) , No pain 11:21:08 77 14 93 29 97/53(70) NSR 0 (11) 10(A) , No pain Medications Time Medication Route Dose Verified Delivered Reason Notes Eff ectiveness by by 10:51:53 0.9% NaCl I.V. 100 Sergei Bates used for ml/hr Shaw BECERRIL Ioana data analytics developer 10:52:03 Oxygen NC 3 Sergei Bates for low 02 l/min Shaw BECERRIL Ioana sats RN 10:52:12 Lidocaine 2% added 20ml Jana Jana for local to vial Ioana Ioana anesthetic field RN RN 10:52:20 Heparin Flush added 2 Jana Jana used for Bag to bags Ioana Ioana procedure (1000units/500ml field RN RN NS) 11:12:40 Versed I.V. 0.5 Sergei Bates for mg Shaw BECERRIL Ioana sedation RN 11:12:48 Fentanyl I.V. 25 Sergei Bates for mcg Shaw BECERRIL Ioana sedation insulation nozzleman Log Time Note 10:25:52 Diagnostic Cath Status : Urgent 10:34:51 Admit Source: Other 10:34:54 Arrival Date: 09/18/2019 12:00:00 AM 10:35:07 Patient Height : 64 inches 10:35:10 Patient Weight : 151 lbs 10:36:27 Lab Result : Creatinine 1 mg/dl 10:36:27 Lab Result : BUN 19 mg/dl 10:36:27 Lab Result : eGFR NONAFRICAN 56 ml/min 10:36:27 Lab Result : Hemoglobin 13.1 g/dl 10:36:49 Procedure Status Urgent Heart Cath (IP). 10:36:57 Velia Sánchez RT(R) sent for patient. Start room use. 10:36:59 Time tracking: Regular hours (M-F 7:00 - 5:00) 10:37:03 Plan of Care:Hemodynamics will remain stable., Cardiac rhythm will remain stable., Comfort level will be maintained., Respiratory function will remain adequate., Patient/ family verbilizes understanding of procedure., Procedure tolerated without complication., Recovers from procedure without complications.. 10:37:15 Patient received from Med II to CCL 2 Alert and oriented. Tansferred to table in Supine position. 10:37:18 Signed procedure consent form obtained from patient. 10:37:29 H&P Date Dictated: 09/17/2019 Within 30 days and on chart.. 10:37:46 3a) 45-59 Moderately reduced kidney function. 10:38:12 Maximum allowable contrast dose (3.7 X eGFR X 0.75)155 ml. 10:40:21 Risk of Mortality: 9.8 10:40:27 Risk of blood transfusion: 12.1 10:40:31 Risk of CORTNEY: 18.2 10:45:19 Warm blankets applied, and carla hugger turned on for patient comfort. 10:45:20 Correct patient and procedure confirmed by team. 10:45:21 ECG and BP/O2 sat monitors applied to patient. 10:45:25 Pre-procedure instructions explained to patient. 10:51:40 Vital chart was started 10:51:53 0.9% NaCl 100 ml/hr I.V. was administered by Jana Triplett RN; used for procedure; Verbal order read back and verified. 10:52:03 Oxygen 3 l/min NC was administered by Jana Triplett RN; for low 02 sats; Verbal order read back and verified. 10:52:12 Lidocaine 2% 20ml vial added to field was administered by Jana Triplett RN; for local anesthetic; Verbal order read back and verified. 10:52:20 Heparin Flush Bag (1000units/500ml NS) 2 bags added to field was administered by Jana Triplett RN; used for procedure; Verbal order read back and verified. 10:52:50 Baseline sample Acquired. 10:52:58 Rhythm: sinus rhythm 10:53:00 Full Disclosure recording started 10:53:07 Family in patients room. 10:53:11 Patient NPO since Midnight. 10:53:36 Patient allergic to Other allergysee chrt 10:53:42 Is the patient allergic to Iodine/contrast media? No. 10:53:43 Was the patient premedicated? Yes 10:53:45 Is patient on blood thinner?Yes 10:53:49 ACC The patient was administered the following blood thiners within the last 24 hours: ACCPlavix 10:53:52 Patient diabetic? No. 10:53:58 Snore? No 10:54:00 Sleep apnea? No 10:54:04 Dentures? No ? 10:54:22 Patient pain scale 0/10 ?. 10:54:29 Right groin area was prepped with chlora-prep and draped in sterile fashion 10:54:37 Alarms reviewed by Savana Tran 10:54:39 Physician paged 11:11:33 Physician arrived 11:11:34 --------ALL STOP TIME OUT------ 11:11:35 Final Timeout: patient, procedure, and site verified with staff and physician. All members of the team are in agreement. 11:11:39 Right groin site verified by team. 11:11:44 Fire Safety Assessment: A--An alcohol-based skin anteseptic being used preoperatively., C--Open oxygen or nitrous oxide is being used., D--An ESU, laser, or fiber-optic light is being used. 11:11:52 Physical assessment completed. ASA score P 4 - A patient with severe systemic disease that is a constant threat to life as per Sergei Squires MD. 11:11:57 Sedation plan: IV Moderate Sedation Medication:Versed, Fentanyl 11:12:10 Use device set Femoral Dx 11:12:12 ACIST Syringe (54205) opened to sterile field. 11:12:12 Bag Decanter (2002) opened to sterile field. 11:12:13 Medline Cath Pack ([id number]) opened to sterile field. 11:12:14 ACIST Hand Control (63464) opened to sterile field. 11:12:15 ACIST Manifold (70746) opened to sterile field. 11:12:15 DIAGNOSTIC Multipack 5Fr catheter set (UL2828) opened to sterile field. 11:12:16 Tegaderm 4 x 4 (1626W) opened to sterile field. 11:12:18 SHEATH 5FR [place] (FHY059) opened to sterile field. 11:12:19 EMERALD Guide Wire (273-350) opened to sterile field. 11:12:40 Versed 0.5 mg I.V. was administered by Jana Triplett RN; for sedation; Verbal order read back and verified. 11:12:48 Fentanyl 25 mcg I.V. was administered by Jana Triplett RN; for sedation; Verbal order read back and verified. 11:14:01 Procedure started. 11:14:11 Local anesthetic to right femoral artery with Lidocaine 2% by Sergei Squires MD.INITIAL ACCESS ONLY 11:14:26 A 5 Fr sheath was inserted into the Right Femoral artery 11:14:31 J wire advanced. 11:15:18 A MULTIPACK Pigtail 5 Fr catheter was advanced over the wire and used for Ventriculography. 11:15:22 LV gram done using COLEMAN 11:15:24 LV angiography performed. 11:15:46 EF : 50 % 11:15:48 Catheter removed. 11:15:55 A MULTIPACK JL 4.0 5Fr catheter was advanced over the wire and used for Procedure. 11:15:59 LCA angiography performed. 11:18:06 Catheter removed. 11:18:16 A MULTIPACK 3DRC 5Fr catheter was advanced over the wire and used for Procedure. 11:18:22 KRISHNAN to LAD angiography performed. 11:19:31 RCA angiography performed. 11:19:55 Catheter removed. 11:19:57 EXOSEAL 5Fr (EX500) opened to sterile field. 11:20:16 Sheath removed intact; hemostasis achieved with Exoseal to the Right Femoral artery. 11:20:23 Procedure ended.(Physican Out) 11:20:33 Fluoroscopy time 01.80 minutes. 11:20:37 Flurop Dose total: 328 11:20:37 Fluoroscopy dose: 328 mGy 11:20:42 Dose Area Product 76077 mGy/cm. 11:20:50 Contrast amount:Isovue 300 62ml. 11:20:53 Maximum allowable dose exceeded? No. 11:20:59 Insertion/operative site no bleeding no hematoma. 11:21:09 Post right femoral artery:stable 11:21:26 Post-procedure physical assessment completed. ASA score P 2 - A patient with mild systemic disease as per Sergei Squires MD. 11:21:32 Post procedure rhythm: unchanged. 11:21:35 Estimated blood loss: 10 ml 11:21:38 Post procedure instruction explained to patient.Patient verbalizes understanding. 11:21:50 Procedure type changed to Cath procedure, Diagnostic procedure, LHC, LHC w/Coronaries w/Grafts, Sedation Charges, Moderate Sedation up to 15 minutes 11:21:53 Procedure and supply charges have been captured, reviewed, submitted and are correct. 11:22:11 Procedure Complication : No complications 11:22:13 Vital chart was stopped 11:22:15 [facility] Findings: mild to moderate CAD (<70%) 11:22:18 Operative report dictated upon procedure completion. 11:22:19 See physician's report for complete and final results. 11:22:52 Report given to Pre/Post Procedure Room. 11:22:56 Patient transfered to Pre/Post Procedure Room with Stretcher. 11:22:58 Procedure ended. 11:22:58 Full Disclosure recording stopped 11:23:06 End room use (Document Last) 11:24:31 End room use (Document Last) 11:25:09 End room use (Document Last) Device Usage Item Name Manufacture Quantity Catalog Hospital Part Current Minimal L ot# / Number Charge Number Stock Stock Serial# Code ACIST Acist 1 03577 166516 592112 341059 20 Syringe Medical (80340) Systems Inc Bag Microtek 1 826162 73755 803317 5 Decanter Medical Inc. () Medline Medline 1 [id number] 880761 60470 797644 5 Cath Pack ([id number]) ACIST Hand Acist 1 73156 041306 975595 544560 5 Control Medical (70436) Systems Inc ACIST Acist 1 38146 699276 679255 063110 5 Manifold Medical (94742) Systems Inc DIAGNOSTIC Cardinal 1 FW5683 654172 10346 360727 30 Blue Focus PR [facility] 5Fr catheter set (HS0376) Tegaderm 4 3M 1 1626W 156409 151575 971675 5 x 4 (1626W) SHEATH 5FR Terumo 1 YMS968 918881 760393 491125 5 [place] (FRV114) EMERALD Cardinal 1 443-533 630643 411094 367355 5 Guide Wire Health (595-769) MULTIPACK Cardinal 1 315108 5 Pigtail 5 Health Fr catheter MULTIPACK Cardinal 1 140461 5 JL 4.0 5Fr Health catheter MULTIPACK Cardinal 1 559206 5 3DRC 5Fr Health catheter EXOSEAL 5Fr Cardinal 1 EX500 876863 915711 127488 10 (EX500) Health Signature Audit Bradford Stage Time Signature Unsigned Intra-Procedure 09/18/2019 Summer Barriga 11:24:31 AM RT(R) Intra-Procedure 09/18/2019 Jana 11:25:09 AM Ioana MENESES Intra-Procedure 09/18/2019 Sergei Squires 11:28:34 AM Signatures Performing Physician : Signature : Sergei Squires MD Date : Time : Monitor : Summer Barriga Signature : RT Date : Time : Nurse : Jana Signature : Ioana RN Date : Time : [facility] [address] [place] [address]
[2019-09-17 07:54] VITALS: BP 176/78
[2019-09-17 08:02] LABS: BASOPHILS 0.2 % (0-2); EOSINOPHILS 5.9 % (0-7); HEMATOCRIT 39.7 % (36.0-48.0); HEMOGLOBIN 13.1 g/dL (12-16); IMMATURE GRANULOCYTES 0.2 % (0-5); LYMPHOCYTES 45.4 % (15-50); MCV 93.9 fL (80.0-100.0); MEAN PLATELET VOLUME 9.5 fL (7.4-10.4); MONOCYTES 8.2 % (2-11); NEUTROPHILS 40.1 % (40-80); PLATELET COUNT 157 10x3/uL (130-400); RBC 4.23 10x6/uL (4.00-5.40); RDW 13.4 % (11.5-14.5); WBC 5.2 10x3/uL (4.8-10.8)
[2019-09-17] MEDS ORDERED: SYNTHROID75 MCG PO (08:04)
[2019-09-17] MEDS ORDERED: LOPRESSOR25 MG PO (08:06)
[2019-09-17] MEDS ORDERED: ISOSORBIDE DINI30 MG PO (08:06)
[2019-09-17 08:11] VITALS: BP 162/74
[2019-09-17 08:12] LABS: APTT 27.3 SECONDS (22.8-39.4); INR 0.94 (0.85-1.17); PROTIME 12.1 SECONDS (11.6-15.0)
[2019-09-17 08:26] LABS: CALC OSMOLALITY 282 mosm/kg (275-300); CALCIUM 8.5 mg/dL (8.5-10.1); CARBON DIOXIDE 25.9 mmol/L (21.0-32.0); CHLORIDE - SERUM 107 mmol/L (98-107); GLUCOSE 104 mg/dL (74-106); SODIUM 141 mmol/L (136-145); UREA NITROGEN 19 mg/dL (7-18); eGFR NON AFRICAN AMERICAN 56 mL/min (90-120)
[2019-09-17 08:35] LABS: ALBUMIN 3.5 g/dL (3.4-5.0); ALKALINE PHOSPHATASE 95 U/L (46-116); ALT (SGPT) 21 U/L (10-68); BILIRUBIN - TOTAL 0.42 mg/dL (0.2-1.3); CKMB 0.7 U/L (0.0-3.6); CREATINE KINASE 163 UL (21-215); MAGNESIUM - SERUM 2.2 mg/dL (1.8-2.4); PROTEIN - SERUM 6.9 g/dL (6.4-8.2); THYROID STIMULATING HORMONE 6.62 uIU/mL (0.36-3.74)
[2019-09-17 08:37] LABS: TROPONIN-I < 0.017 ng/mL (0.000-0.060)
[2019-09-17 10:47] VITALS: BP 182/80; BMI 26.8
[2019-09-17 11:14] VITALS: Ht 160 cm; Wt 68.6 kg
[2019-09-17 12:00] VITALS: BP 182/80
[2019-09-17 13:20] LABS: CKMB 0.9 U/L (0.0-3.6); CREATINE KINASE 154 UL (21-215)
[2019-09-17 13:23] LABS: TROPONIN-I < 0.017 ng/mL (0.000-0.060)
[2019-09-17 15:47] VITALS: BP 110/56
[2019-09-17 19:06] LABS: CKMB 0.9 U/L (0.0-3.6); CREATINE KINASE 151 UL (21-215); TROPONIN-I < 0.017 ng/mL (0.000-0.060)
--- NOTE | 2019-09-17 19:30 | NUR ---
RECEIVED REPORT, WILL ASSUME CARE OF PT, DENIES ANY NEEDS AT THIS TIME, EXPLAIN WILL BE NPO AFTER MIDNIGHT FOR CATH IN AM, BED IS LOW. SRX1, CALL LIGHT IN REACH, WILL CONTINUE PLAN OF CARE
[2019-09-17 20:00] VITALS: BP 111/55
[2019-09-18 00:34] VITALS: BP 96/47
[2019-09-18 04:00] VITALS: BP 99/47
--- NOTE | 2019-09-18 04:03 | NUR ---
I have reviewed this patient and I concur with the Shift Assessment completed by the Licensed Practical Nurse today this shift.
[2019-09-18 07:38] VITALS: BP 109/51
--- NOTE | 2019-09-18 08:00 | NUR ---
ASSESSMENT DONE. DENIES NEEDS
--- NOTE | 2019-09-18 09:09 | NUR ---
I have reviewed this patient and I concur with the Shift Assessment completed by the Licensed Practical Nurse today this shift.
--- NOTE | 2019-09-18 10:45 | NUR ---
TO DIRECTOR ACUTE PER BED
--- NOTE | 2019-09-18 11:22 | HP ---
PATIENT: MUKESH ADEN MEDICAL RECORD: [id number] ACCOUNT: [id number] LOCATION:[address] : 35 ADMISSION DATE: 09/17/19 PCP: KAIN CANTRELL MD HISTORY AND PHYSICAL EXAMINATION DIAGNOSES: 1. Unstable angina. 2. Coronary artery disease. 3. Previous multivessel PTCA and stent. 4. Hypertension. 5. Hyperlipidemia. HISTORY OF PRESENT ILLNESS: Ms. Aden presents with 1 week of increasing chest pain, chest discomfort as well as severe shortness of breath and fatigue. Her chest pain is a classic anginal pain with a dull, aching, heaviness sensation. It is now radiating to her jaw. She is having episodes at rest. It awoke her last night. She had severe chest discomfort. Also radiation to her back as she has had in the past with her angina. Her blood pressure has not been well controlled. Her systolic is in the 170 range here. She is on metoprolol for blood pressure. Her heart rate is in the 50s and 60s. She is as well on Imdur. PHYSICAL EXAMINATION: CONSTITUTIONAL/GENERAL APPEARANCE: Well nourished, well developed, appears stated age. EYES: Lids and conjunctivae noninjected. No discharge. No pallor. ENT: Lips within normal limit. No cyanosis. No pallor. NECK: Carotid arteries, bilateral normal upstroke. No bruits. No thrills. No jugular venous pressure or distention. CERVICAL LYMPH NODES: Nontender. Nonenlarged. THYROID: Not enlarged. No nodules. CARDIOVASCULAR: Precordial exam, nondisplaced. No heaves or pericardial thrills. Rate and rhythm, regular. Heart sounds, normal S1, normal S2. No S3, no gallop, no rub. Systolic murmur, not heard. Diastolic murmur, not heard. RESPIRATORY: Respiratory effort, unlabored. Normal curvature. No thoracic deformity. No chest wall tenderness. Percussion, resonant. Auscultation, clear. No wheezes, no rales, no rhonchi. ABDOMEN: Soft, nondistended, nontender. No abdominal pain, no vomiting and normal appetite. MUSCULOSKELETAL: No joint tenderness, normal gait, normal tone. SKIN: Warm and dry. OVERALL IMPRESSION: Chest pain compatible with angina. EKG suggests lateral ischemia. Most likely she has recurrent hemodynamically significant coronary artery disease. We will try to control her blood pressure by increasing the Imdur, adding calcium channel des. Continue her metoprolol. Proceed with coronary angiography in the a.m. if she continues to have class IV anginal symptomatology. TRANSINT:[id number] Voice Confirmation ID: [id number] DOCUMENT ID: [id number] HISTORY AND PHYSICAL [id number] MUKESH ADEN JEFFREY MD at 1122 CC: [id number] DICTATION DATE: 09/17/19 1112 CLASSIFICATION CASE MANAGER: 09/17/19 1122 ADM IN [address] [place] [address]
--- NOTE | 2019-09-18 12:00 | NUR ---
RETURN FROM BEAD FORMING MACHINE OPERATOR, RT GROIN DRSG C/D/I. NO HEMATOMA NOTED, PULSE PALP
[2019-09-18] MEDS ORDERED: PROCARDIA XL30 MG PO (12:47)
--- NOTE | 2019-09-18 12:50 | NUR ---
PATIENT HAS ALREADY HAD A FLU SHOT THIS YEAR. PER PATIENT REQUEST, ESTHER HARMAN CALLED TO [facility] AT THE [facility].
--- NOTE | 2019-09-18 14:42 | NUR ---
DC GIVEN TO PT
--- NOTE | 2019-09-18 15:02 | NUR ---
DC HOME PER PERSONAL CAR
--- NOTE | 2019-09-18 16:54 | MORECARE ---
CASE MANAGEMENT DISCHARGE SUMMARY PATIENT: JENNY LEE UNIT: [id number] ADM DATE: 09/17/19 AGE: 83 : 35 SEX: F ROOM/BED: D.610 AUTHOR: BLANCA FERNANDES PHYSICIAN: REFERRING PHYSICIAN: GREYSON SHERIFF MD DATE OF SERVICE: 09/18/19 Discharge Plan Patient Name: [facility]ENNY LEE [facility] [facility] 1935 Planned Disposition: Home Anticipated Discharge Date: 09/18/19 Discharge Date: 09/18/2019 Expected LOS: 1 Initial Reviewer: [email or web address] Initial Review Date: 09/18/2019 Generated: 09/18/19 5:54 pm Coverage Notice Reviewer: [email or web address] Chaz Ford Notice Issued Date-Time: 09/17/2019 20:13 Notice Type: Medicare Outpatient Observation Notice Notice Delivered To: Patient Relationship to Patient: Self Can Technician Name: Jenny Lee Delivery Method: HAND - Hand Delivered Yvonne Days: Prior Verbal Notification: Recipient Understood Notice: Yes Recipient Signature: Yes Med Rec Note Co-signed by Attending: Coverage Notice Comment: HARMON delivered to and signed by patient. Copy to chart. Patient Name: JENNY LEE Page [phone] at 1654 All edits/amendments must be made on the electronic document DICTATION DATE: 09/18/191653 BREAKER HAND: ANDREA 09/18/191653 RPT#: [id number] DC DATE:09/18/19 STATUS: DIS IN [facility] [address] [place] [address] END OF REPORT
[2019-09-19] MEDS ORDERED: VALIUM 2 MG TAB2 MG PO (21:26)
--- NOTE | 2019-09-26 11:40 | DS ---
PATIENT:MUKESH ADEN :35 MEDICAL RECORD: [id number] DISCHARGE SUMMARY ADMISSION DATE: 09/17/19 DISCHARGE DATE: 09/18/19 DATE OF DISCHARGE: 09/18/2019 DIAGNOSES: 1. Angina. 2. Coronary artery disease. 3. Multivessel percutaneous transluminal coronary angioplasty and stent. 4. Coronary bypass graft surgery. 5. Hypertension. 6. Hyperlipidemia. HOSPITAL COURSE: Ms. Aden presents with unstable anginal symptomatology and out of control blood pressure. Cardiac catheterization revealed wide patency of the previously placed stents and wide patency of the KRISHNAN to the LAD. She had better blood pressure control with the Procardia-XL added to her medical regimen was discharged home with the addition of the Procardia-XL 30 mg a day to her medical regimen. Follow up with [facility] in 1 month. TRANSINT:[id number] Voice Confirmation ID: [id number] DOCUMENT ID: [id number] GREYSON SHERIFF MD at 1140 CC: [id number] DICTATION DATE: 09/18/19 1125 DEMAND EQUIPMENT REPAIRER: 09/19/19 0009 DIS IN 09/18/[address] [facility] [address] [place] [address]
--- NOTE | 2019-09-26 11:40 | OP ---
PATIENT NAME: MUKESH ADEN MEDICAL RECORD: [id number] :35 LOCATION:D.M2 D.2126 ADMISSION DATE:09/17/19 SURGEON: GREYSON SHERIFF MD DATE OF OPERATION: 09/18/2019 PROCEDURES: 1. Left heart catheterization. 2. Selective coronary angiography. 3. Left ventriculogram. 4. KRISHNAN angiography. INDICATION: Unstable angina and coronary artery disease. PROCEDURE IN DETAIL: After informed consent was obtained and after a detailed description of the risks, benefits as well as alternative therapies, the patient elected to proceed with angiogram and heart catheterization. The right femoral area was prepped and draped in normal sterile fashion. Right femoral artery was cannulated via modified Seldinger technique with placement of 5-[place] sheath. All catheters exchanged through this sheath. FINDINGS: Left ventriculogram was performed in standard 30-degree COLEMAN view, reveals good cardiac wall motion throughout all segments. Overall ejection fraction estimated at 70%. SELECTIVE CORONARY ANGIOGRAPHY: 1. Left main is with no significant angiographic disease. 2. Left anterior descending has 90% stenosis in the mid vessel. The previously placed stents in the diagonal were widely patent. 3. The left circumflex has moderate irregularities, but no flow-limiting stenosis. Previously placed stent is widely patent. 4. Right coronary artery has moderate irregularities, but no flow-limiting stenosis. 5. KRISHNAN to the distal LAD is widely patent. Distal LAD is widely patent. OVERALL IMPRESSION: Wide patency of the previously placed stents and wide patency of the KRISHNAN to the distal LAD. Continue medical management of the coronary artery disease, cardiac risk factors, and hypertension. TRANSINT:[id number] Voice Confirmation ID: [id number] DOCUMENT ID: [id number] GREYSON SHERIFF MD at 1140 CC: [id number] DICTATION DATE: 09/18/19 1126 FURRIER APPRENTICE: 09/18/19 1238 DIS IN 09/18/19 [address] [place] [address]
== END 2019-09-18 15:03 | disposition home or self-care (01) ==
LOC: D.ER 07:31 → D.M2 08:47 → OBSVTIME 08:47 → D.M2 08:47
PROVIDERS: Emergency Medicine; ADMIT Internal Medicine Interventional Cardiology; ATTEND Internal Medicine Interventional Cardiology
DX: I25.110 Atherosclerotic heart disease of native coronary artery with unstable angina pectoris (principal); I10 Essential (primary) hypertension; E78.5 Hyperlipidemia, unspecified; Z95.1 Presence of aortocoronary bypass graft

== ENCOUNTER 2019-09-19 20:41 | Emergency (ER) | payer MEDICARE, BC ==
[~2019-09-19] VITALS: Ht 160 cm; Wt 68.2 kg
[~2019-09-19 20:41] MED LIST changes: +PROCARDIA XL30 MG PO; +SYNTHROID75 MCG PO
[2019-09-19 20:42] VITALS: Ht 160 cm; Wt 68.2 kg
[2019-09-19 21:00] LABS: BASOPHILS 0.2 % (0-2); EOSINOPHILS 4.9 % (0-7); HEMATOCRIT 42.9 % (36.0-48.0); HEMOGLOBIN 14.4 g/dL (12-16); IMMATURE GRANULOCYTES 0.2 % (0-5); LYMPHOCYTES 46.3 % (15-50); MCH 31.6 pg (26.0-34.0); MCHC 33.6 g/dL (31.0-37.0); MCV 94.3 fL (80.0-100.0); MEAN PLATELET VOLUME 9.6 fL (7.4-10.4); MONOCYTES 8.3 % (2-11); NEUTROPHILS 40.1 % (40-80); RBC 4.55 10x6/uL (4.00-5.40); RDW 13.7 % (11.5-14.5); WBC 8.3 10x3/uL (4.8-10.8)
[2019-09-19 21:02] LABS: PLATELET COUNT 194 10x3/uL (130-400)
[2019-09-19 21:06] LABS: INR 0.89 (0.85-1.17); PROTIME 11.6 SECONDS (11.6-15.0)
[2019-09-19 21:07] LABS: APTT 27.1 SECONDS (22.8-39.4); CALC OSMOLALITY 277 mosm/kg (275-300); CALCIUM 9.1 mg/dL (8.5-10.1); CARBON DIOXIDE 27.8 mmol/L (21.0-32.0); CHLORIDE - SERUM 100 mmol/L (98-107); GLUCOSE 123 mg/dL (74-106); POTASSIUM - SERUM 4.1 mmol/L (3.5-5.1); SODIUM 137 mmol/L (136-145); UREA NITROGEN 20 mg/dL (7-18); eGFR NON AFRICAN AMERICAN 56 mL/min (90-120)
[2019-09-19] MEDS ORDERED: VALIUM 2 MG TAB2 MG PO (21:26)
[2019-09-19 21:32] LABS: ALBUMIN 4.1 g/dL (3.4-5.0); ALKALINE PHOSPHATASE 110 U/L (46-116); ALT (SGPT) 26 U/L (10-68); CKMB 0.7 U/L (0.0-3.6); CREATINE KINASE 192 UL (21-215); MAGNESIUM - SERUM 2.3 mg/dL (1.8-2.4); PROTEIN - SERUM 8.5 g/dL (6.4-8.2)
[2019-09-19 21:41] LABS: TROPONIN-I < 0.017 ng/mL (0.000-0.060)
[2019-09-19 21:51] VITALS: BP 136/61
== END 2019-09-19 21:51 | disposition home or self-care (01) ==
LOC: D.ER 20:41
PROVIDERS: Family Medicine
DX: F41.0 Panic disorder [episodic paroxysmal anxiety] (principal); F43.9 Reaction to severe stress, unspecified

== ENCOUNTER → 2020-01-25 08:39 | Outpatient (CLI) | payer MEDICARE, BC ==
[2019-09-19 20:42] VITALS: BMI 26.6
--- NOTE | ~2020-01-25 | ST ---
PATIENT:MUKESH ADEN MEDICAL RECORD: [id number] SEX: F LOCATION:[facility] ORDER #: ADMISSION DATE: 01/25/20 AGE OF PATIENT: 84 REFERRING PHYSICIAN: INTERPRETING PHYSICIAN: GREYSON SHERIFF MD DATE OF SERVICE: 01/25/2020 NUCLEAR STRESS TEST INDICATION: Angina and coronary artery disease, shortness of breath, hypertension. She was exercised on standard Lexiscan protocol with 33 mCi of sestamibi injected at peak stress, 11 mCi used previously for rest images. FINDINGS: Gated SPECT reveals preserved ejection fraction at 74% with good wall motioning and thickening and brightening throughout all segments. SPECT imaging: Cardiolite was used as myocardial perfusion agent. There are reversible changes anteriorly and apically. This includes basal, mid, apical, inferior as well as the apex itself. Degree of reversibility is moderate. The amount of myocardial involved is moderate. OVERALL IMPRESSION: This is an intermediate risk abnormal nuclear stress test, reversibility anteriorly and apically suggestive of hemodynamically significant coronary artery disease. TRANSINT:[id number] Voice Confirmation ID: [id number] DOCUMENT ID: [id number] GREYSON SHERIFF MD CC: KAIN CANTRELL [id number] DICTATION DATE: 01/26/20 1253 ACCOUNTS PAYABLE ADMINISTRATOR: 01/27/20 0348 DEP CLI 01/25/20 [id number] [place] [address]
[~2020-01-25 08:39] MED LIST changes: +VALIUM 2 MG TAB2 MG PO
== END | disposition home or self-care (01) ==
LOC: D.HCCARDIO 08:30
PROVIDERS: ATTEND Internal Medicine Interventional Cardiology
DX: I25.10 Atherosclerotic heart disease of native coronary artery without angina pectoris (principal)

== ENCOUNTER → 2020-02-01 09:08 | Outpatient (CLI) | payer MEDICARE, BC ==
[2019-09-19 20:42] VITALS: BMI 26.6
[~2020-02-01 09:08] MED LIST changes: +CELEXA20 MG PO; +PROCARDIA XL60 MG PO
== END | disposition home or self-care (01) ==
LOC: D.US 01-26 13:30
PROVIDERS: ATTEND Internal Medicine Cardiovascular Disease
DX: I65.23 Occlusion and stenosis of bilateral carotid arteries (principal); I10 Essential (primary) hypertension; Z86.73 Personal history of transient ischemic attack (TIA), and cerebral infarction without residual deficits

== ENCOUNTER 2020-02-05 09:02 | Outpatient (CLI) | payer MEDICARE, BC ==
[~2020-02-05] VITALS: Ht 160 cm; Wt 65.9 kg
--- NOTE | ~2020-02-05 | OP ---
PATIENT NAME: MUKESH ADEN MEDICAL RECORD: [id number] :35 LOCATION:D.CAT ADMISSION DATE: SURGEON: GREYSON SHERIFF MD DATE OF OPERATION: 02/05/2020 PROCEDURES: 1. PTCA, LAD diagonal. 2. Left heart catheterization. 3. Selective coronary angiography. 4. Left ventriculogram. 5. KRISHNAN angiography. PROCEDURE: After informed consent was obtained, detailed description of risks, benefits as well as alternative therapies, the patient elected to proceed with angiogram and angioplasty. The right femoral area was prepped and draped in normal sterile fashion. Right femoral artery was cannulated via modified Seldinger technique with placement of 6-Hebrew sheath. All catheters exchanged through this sheath. FINDINGS: Left ventriculogram was performed in standard 30-degree COLEMAN view, reveals good cardiac wall motion, ejection fraction is 60%. SELECTIVE CORONARY ANGIOGRAPHY: 1. Left main is with no significant angiographic disease. 2. Left anterior descending has 95% stenosis in the proximal vessel just before a non-grafted diagonal and non-grafted diagonal has stents. There is 90% in-stent restenosis. 3. KRISHNAN to the distal LAD is widely patent. Distal LAD is widely patent. 4. Left circumflex has moderate irregularities, but no flow-limiting stenosis. 5. Right coronary has moderate irregularities, but no flow-limiting stenosis. PTCA of the LAD diagonal: High pressure PTCA was made with a 2.5 x 20 mm balloon. Multiple inflations made up to 17 atmospheres. Result was 0% residual stenosis. OVERALL IMPRESSION: Successful percutaneous transluminal coronary angioplasty for in-stent restenosis of the left anterior descending diagonal going from 90% initial stenosis to 0% residual. TRANSINT:[id number] Voice Confirmation ID: [id number] DOCUMENT ID: [id number] GREYSON SHERIFF MD CC: [id number] DICTATION DATE: 02/05/[address] SQL DEVELOPER: 02/05/20 2215 [facility] [place] [facility] 02/05/20 [place] [id number]
--- NOTE | ~2020-02-05 | HEMODYNAMI ---
PATIENT:MUKESH ADEN MEDICAL RECORD: [id number] : 35 LOCATION:DSidneyCAT ADMISSION DATE: 02/05/20 Generatedon:02/05/202012:37 Patient name: MUKESH ADEN Patient #: [id number] SSN: [id number] : 1935 Date of study: 02/05/2020 Page: Of Hemodynamic Procedure Report Patient Data Patient Demographics Procedure consent was obtained First Name: MUKESH Gender: Female Last Name: KEIKO : 1935 Middle Initial: ANTONI Age: 84 year(s) Patient #: [id number] Race: SSN: [id number] Additional ID: [id number] Contact details [address]: [address] [place] [address] State: [place] City: [place] Zip code: [address] Past Medical History Performed procedures and imaging results Date Procedure Procedure Results Comments Stress testing Positive->Intermediate with SPECT MPI risk History of disease Date Diagnosis Comments CAD Allergies Allergen Reaction Date Comments Reported Sulfa drugs 01/18/2015 Other allergy 01/18/2015 cipro Other allergy 01/18/2015 niacin Amoxicillin 01/18/2015 Codeine 01/18/2015 Other allergy 11/17/2016 amoxicillin, cipro, codeine, Niacin, Sulfa Other allergy 04/11/2018 cipro Other allergy 01/06/2019 CIPRO, SULFA, CODEINE, NIACIN, AMOXICILLIN Other allergy 09/18/2019 [facility] Admission Admission Data Admission Date: 02/05/2020 Admission Time: 9:02 Insurance Payor: Medicare Height (in.): 63 BSA: 1.7 (m2) Height (cm.): 160.02 BMI: 26.04 (kg/m2) Weight (lbs.): 147 Weight (kg.): 66.68 Current Diagnosis Diagnosis Description Unstable angina Lab Results Lab Result Date: 02/05/2020 Lab Result Time: 0:00 Biochemistry Name Units Result Min Max BUN mg/dl 19 --(----)*- 7 18 Creatinine mg/dl 1.1 --(--*-)-- 0.6 1.3 eGFR ml/min 50 *-(----)-- 90 120 NONAFRICAN CBC Name Units Result Min Max Hemoglobin g/dl 12.7 -*(----)-- 13.5 17.5 Procedure Procedure Types Cath Procedure Diagnostic Procedure LHC LHC w/Coronaries w/Grafts PCI Procedure PTCA PTCA Initial Procedure Description Procedure Date Procedure Date: 02/05/2020 Procedure Start Time: 12:10 Procedure End Time: 12:35 Procedure Staff Name Function Sergei Squires MD Performing Physician Abhi Andrea RT Monitor Kristi Donis RN Nurse Yvonne Rodriguez RT Scrub Indication Abnormal nuclear perfusion study Procedure Data Cath Procedure Fluoroscopy Diagnostic fluoroscopy Total fluoroscopy Time: 4 time: 4 min min Diagnostic fluoroscopy Total fluoroscopy dose: dose: 188.23 mGy 188.23 mGy Contrast Material Contrast Material Type Amount (ml) Isovue 300 84 Entry Location Entry Primary Successful Side Size Upsize Upsize Entry Closure Succes sful Closure Location (Fr) 1 (Fr) 2 (Fr) Remarks Device Remarks Femoral Right 5 Fr 6 Fr Exoseal artery Short Estimated blood loss: 10 ml Diagnostic catheters Device Type Used For End Catheter Placement MULTIPACK Pigtail 5 Fr Ventriculography catheter MULTIPACK JL 4.0 5Fr Procedure catheter MULTIPACK 3DRC 5Fr Procedure catheter Procedure Medications Medication Administration Route Dosage 0.9% NaCl I.V. 100 ml/hr Oxygen etCO2 Nasal cannula 2 l/min Lidocaine 2% added to field 20 Heparin Flush Bag added to field 2 bags (1000units/500ml NS) Versed I.V. 2 mg Fentanyl I.V. 50 mcg Fentanyl I.V. 50 mcg Heparin Bolus I.V. 4000 units Hemodynamics Rest BSA: 1.7 (m2) HGB: 12.7 (g/dl) O2 Consumption: Estimated: 144.54 (ml/min) O2 Con sumption indexed: Estimated:85.02 (ml/min/m) Heart Rate: 59 (bpm) Pressure Samples Time Site Value (mmHg) Purpose Heart Use Rate(bpm) 12:12 LV 90/1,8 Snapshot 58 Snapshots Pre Cath Intra NCS Post Cath Vital Signs Time Heart Resp SPO2 etCO2 NIBP (mmHg) Rhythm Pain Sedation Rate (ipm) (%) (mmHg) Status Level (bpm) 11:42:51 62 20 97 0 129/68(107) NSR 0 (11) 10(A) , No pain 11:47:09 59 19 98 28.6 122/59(97) SB 0 (11) 10(A) , No pain 11:51:27 58 13 97 34.7 107/52(80) SB 0 (11) 10(A) , No pain 11:55:39 57 14 98 20 92/53(69) SB 0 (11) 10(A) , No pain 11:59:47 55 10 96 20 93/49(74) SB 0 (11) 10(A) , No pain 12:03:53 55 12 96 19 94/50(64) SB 0 (11) 10(A) , No pain 12:07:58 56 12 96 14 93/51(68) SB 0 (11) 10(A) , No pain 12:12:02 56 13 97 17.3 98/56(68) SB 0 (11) 10(A) , No pain 12:16:08 65 14 98 24.1 100/57(80) NSR 0 (11) 9(A) , No pain 12:20:17 59 11 97 3.7 97/52(63) SB 0 (11) 9(A) , No pain 12:24:23 64 13 97 25.6 102/57(83) NSR 0 (11) 9(A) , No pain 12:28:33 60 12 93 20.3 95/51(66) NSR 0 (11) 9(A) , No pain 12:32:39 60 13 94 24.9 100/54(74) NSR 0 (11) 9(A) , No pain Medications Time Medication Route Dose Verified Delivered Reason Notes Effectiveness by by 11:41:52 0.9% NaCl I.V. 100 Sergei Kristi used for ml/hr Shaw Donis band splicer 11:41:58 Oxygen etCO2 2 Sergei Kristi used for Nasal l/min Shaw Donis procedure cannula RN 11:42:05 Lidocaine 2% added 20ml Sergei Mai for local to vial Shaw Squires MD anesthetic field 11:42:10 Heparin Flush added 2 Sergei Mai used for Bag to bags Shaw Squires MD procedure (1000units/500ml field NS) 12:08:40 Versed I.V. 2 mg Sergei Berry for sedation Shaw Donis RN 12:08:46 Fentanyl I.V. 50 Sergei Caldwellyla for sedation mcg Shaw Donis RN 12:13:41 Fentanyl I.V. 50 Sergei Leona for sedation mcg Shaw Donis RN 12:19:57 Heparin Bolus I.V. 4000 Sergei Berry for verif ied units Shaw Donis anticoagulation with Dr. ZAIRA Squires Procedure Log Time Note 10:29:20 Informed consent obtained and on chart 10:36:51 ACC Patient presents with Unstable Angina CCS Anginal Class 3--Marked limitation of physical activity, angina occurs with ordinary activity.. 10:50:46 Patient Height : 63 inches 10:51:00 Patient Weight : 147 lbs 10:52:02 Insurance Payor : Medicare 10:52:47 Current Diagnosis : Unstable angina 11:17:09 Diagnostic Cath Status : Elective 11:21:08 Indication : Abnormal nuclear perfusion study 11:27:21 Lab Result : Hemoglobin 12.7 g/dl 11:27:21 Lab Result : eGFR NONAFRICAN 50 ml/min 11:27:21 Lab Result : BUN 19 mg/dl 11:27:21 Lab Result : Creatinine 1.1 mg/dl 11:30:21 Procedure Status Elective Heart Cath (OP). 11:30:24 Yvonne Rodriguez RT(R) (CV) sent for patient. Start room use. 11:32:01 Time tracking: Regular hours (M-F 7:00 - 5:00) 11:32:06 Plan of Care:Hemodynamics will remain stable., Cardiac rhythm will remain stable., Comfort level will be maintained., Respiratory function will remain adequate., Patient/ family verbilizes understanding of procedure., Procedure tolerated without complication., Recovers from procedure without complications.. 11:41:43 Vital chart was started 11:41:52 0.9% NaCl 100 ml/hr I.V. was administered by Kristi Donis RN; used for procedure; Verbal order read back and verified. 11:41:58 Oxygen 2 l/min etCO2 Nasal cannula was administered by Kristi Donis RN; used for procedure; Verbal order read back and verified. 11:42:05 Lidocaine 2% 20ml vial added to field was administered by Sergei Squires MD; for local anesthetic; Verbal order read back and verified. 11:42:10 Heparin Flush Bag (1000units/500ml NS) 2 bags added to field was administered by Sergei Squires MD; used for procedure; Verbal order read back and verified. 11:44:51 Warm blankets applied, and carla hugger turned on for patient comfort. 11:44:56 Correct patient and procedure confirmed by team. 11:44:57 ECG and BP/O2 sat monitors applied to patient. 11:44:59 Baseline sample Acquired. 11:46:20 Rhythm: sinus rhythm 11:46:22 Full Disclosure recording started 11:46:45 H&P Date Dictated: 01/18/2020 Within 30 days and on chart., H&P Addendum completed by physician on day of procedure. (MUST COMPLETE FOR ALL OUTPATIENTS). 11:46:50 Pre-procedure instructions explained to patient. 11:46:59 Family in waiting room. 11:47:02 Patient NPO since Midnight. 11:49:14 Is the patient allergic to Iodine/contrast media? No. 11:49:22 Is patient on blood thinner?Yes 11:49:25 ACC The patient was administered the following blood thiners within the last 24 hours: ACCPlavix 11:49:30 Patient diabetic? No. 11:49:33 Patient not . Patient is over age 55. 11:49:35 ----Pre-sedation anethsthesia assessment.---- 11:49:37 Previous problem with sedation/anesthesia? No ? 11:49:39 Snore? Yes 11:49:41 Sleep apnea? No 11:49:42 Deviated septum? No 11:49:43 Opens mouth fully? Yes 11:49:45 Sticks out tongue? Yes 11:49:55 Airway obstruction? No ? 11:49:59 Dentures? No ? 11:50:04 Pre procedure: right dorsailis pedis pulse 1+ Palpable, but thready & weak; easily obliterated 11:50:17 IV patent on arrival in right wrist with 0.9% NaCl at KVO. 11:50:59 Stress Test: yes; abnormal ANTERIOR / APICAL 11:56:29 Risk of Mortality: 0.4% 11:56:34 Risk of blood transfusion: 3% 11:56:45 Risk of CORTNEY: 7.3% 11:57:23 Right groin area was prepped with chlora-prep and draped in sterile fashion 11:57:29 Alarms reviewed by R. N. 11:57:30 Sharps counted by scrub and verified by R.N. 11:57:50 Physician paged 12:03:40 Zero performed for pressure channel P1 12:06:25 Physician arrived 12:06:25 --------ALL STOP TIME OUT------ 12:06:27 Final Timeout: patient, procedure, and site verified with staff and physician. All members of the team are in agreement. 12:06:29 Right groin site verified by team. 12:06:37 Fire Safety Assessment: A--An alcohol-based skin anteseptic being used preoperatively., C--Open oxygen or nitrous oxide is being used., D--An ESU, laser, or fiber-optic light is being used. 12:06:41 Physical assessment completed. ASA score P 2 - A patient with mild systemic disease as per Sergei Squires MD. 12:06:53 3a) 45-59 Moderately reduced kidney function. 12:06:59 Maximum allowable contrast dose (3.7 X eGFR X 0.75)138 ml. 12:07:07 Sedation plan: IV Moderate Sedation Medication:Versed, Fentanyl 12:08:40 Versed 2 mg I.V. was administered by Kristi Donis RN; for sedation; Verbal order read back and verified. 12:08:46 Fentanyl 50 mcg I.V. was administered by Kristi Donis RN; for sedation; Verbal order read back and verified. 12:09:12 Use device set Femoral Dx 12:09:13 ACIST Syringe (49901) opened to sterile field. 12:09:14 Bag Decanter (2002S) opened to sterile field. 12:09:14 Medline Cath Pack ([id number]) opened to sterile field. 12:09:18 ACIST Hand Control (78565) opened to sterile field. 12:09:19 ACIST Manifold (79970) opened to sterile field. 12:09:22 DIAGNOSTIC Multipack 5Fr catheter set (OG4090) opened to sterile field. 12:09:22 Tegaderm 4 x 4 (1626W) opened to sterile field. 12:09:26 SHEATH 5FR Sciota (GHV979) opened to sterile field. 12:09:27 EMERALD Guide Wire (497-375) opened to sterile field. 12:10:21 Procedure started. 12:10:30 Local anesthetic to right femoral artery with Lidocaine 2% by Sergei Squires MD.INITIAL ACCESS ONLY 12:11:28 A 5 Fr sheath was inserted into the Right Femoral artery 12:11:57 A MULTIPACK Pigtail 5 Fr catheter was advanced over the wire and used for Ventriculography. 12:12:39 LV hemodynamics recorded. 12:12:54 LV gram done using COLEMAN 12:12:59 EF : 60 % 12:13:03 Catheter removed. 12:13:16 A MULTIPACK JL 4.0 5Fr catheter was advanced over the wire and used for Procedure. 12:13:41 Fentanyl 50 mcg I.V. was administered by Kristi Donis RN; for sedation; Verbal order read back and verified. 12:14:20 LCA angiography performed. 12:15:07 Catheter removed. 12:15:28 A MULTIPACK 3DRC 5Fr catheter was advanced over the wire and used for Procedure. 12:15:30 SHEATH 6FR Sciota (BUO294) opened to sterile field. 12:15:31 GUIDE 6FR XBLAD 3.5 catheter ([id number]) opened to sterile field. 12:15:31 CHOICE PT Extra Support 182cm wire ([id number]) opened to sterile field. 12:15:34 INFLATOR Merit BasixCompak (UI5496) opened to sterile field. 12:16:39 KRISHNAN to LAD angiography performed. 12:16:54 RCA angiography performed. 12:16:57 Catheter removed. 12:17:56 Sheath upsized to a 6 Fr Short. 12:18:20 Pre PCI Site: [place] Diag1 has 90% stenosis. 12:18:26 6 Fr XBLAD 3.5 guide catheter was inserted over the wire 12:18:33 CHOICE wire advanced. 12:19:57 Heparin Bolus 4000 units I.V. was administered by Kristi Donis RN; for anticoagulation; verified with Dr. Squires Verbal order read back and verified. 12:19:59 Wire advanced across lesion. 12:20:03 Inflate balloon Inflation number: 1 A EUPHORA 2.5 x 20 Balloon ([id number]) was prepped and advanced across the 1st Diag 90, then inflated to 17 MALACHI for 0:10 (min:sec) 0. 12:23:14 Balloon removed over the wire. 12:23:15 Wire removed. 12:23:16 Guide catheter removed. 12:23:28 EXOSEAL 6Fr (EX600) opened to sterile field. 12:23:58 Procedure ended.(Physican Out) 12:24:32 Fluoroscopy time 04.00 minutes. 12:24:40 Flurop Dose total: 188.23 12::40 Fluoroscopy dose: 188.23 mGy 12::48 Dose Area Product 1193.68 mGy/cm. 12:24:56 Contrast amount:Isovue 300 84ml. 12:25:01 Maximum allowable dose exceeded? No. 12:25:03 Sharps counted by scrub and verified by R.N. 12:25:31 Procedure type changed to Cath procedure, Diagnostic procedure, LHC, LHC w/Coronaries w/Grafts, PCI procedure, PTCA, PTCA Initial 12:26:34 ACT drawn and resulted at 275 seconds. (normal therapeutic range 180-240 seconds). 12:31:13 Sheath removed intact; hemostasis achieved with Exoseal to the Right Femoral artery. 12:31:18 Insertion/operative site no bleeding no hematoma. 12:31:34 Post-op/insertion site Right Femoral artery dressed using a 4 x 4 and Tegaderm. 12:31:45 Post right femoral artery:stable 12:31:50 Post Procedure Pulses reassessed and unchanged 12:31:57 Post-procedure physical assessment completed. ASA score P 2 - A patient with mild systemic disease as per Sergei Squires MD. 12:32:04 Post procedure rhythm: unchanged., sinus rhythm 12:32:09 Estimated blood loss: 10 ml 12:32:14 Patient needs reinforcement of post procedure teaching. 12:32:16 Procedure and supply charges have been captured, reviewed, submitted and are correct. 12:32:27 [facility] Findings: MVD- PCI performed (see procedure note) 12:32:30 Operative report dictated upon procedure completion. 12:32:31 See physician's report for complete and final results. 12:34:57 Report given to Pre/Post Procedure Room. 12:35:04 Patient transfered to Pre/Post Procedure Room with Stretcher. 12:35:07 Procedure ended. 12:35:07 Full Disclosure recording stopped 12:35:21 ACC-PCI Only Patient was given prescriptions, or instructed by Sergei Squires MD to start/continue the following medications upon discharge: Plavix 12:35:23 End room use (Document Last) 12:35:50 End room use (Document Last) 12:37:11 Vital chart was stopped Intervention Summary Intervention Notes Time ActionType Lesion and Equipment Action# Pressure Duration Attributes Used 12:20:03 Inflate 1st Diag EUPHORA 1 17 00:10 balloon 2.5 x 20 Balloon ([id number]) Device Usage Item Name Manufacture Quantity Catalog Number Hospital Part Current Minim al Lot# / Charge Number Stock Stock Serial# Code ACIST Acist 1 08103 656165 599485 072972 20 Syringe Medical (20397) Systems Inc Bag Microtek 1 149472 60992 680531 5 Decanter Medical Inc. () Medline Medline 1 [id number] 438933 71072 981107 5 Cath Pack ([id number]) ACIST Hand Acist 1 05790 636489 744082 604784 5 Control Medical (51092) Systems Inc ACIST Acist 1 66759 818039 166681 160190 5 Manifold Medical (76210) Systems Inc DIAGNOSTIC Cardinal 1 [id number] 797562 97171 904066 30 Multipack Health 5Fr catheter set (RU3715) Tegaderm 4 3M 1 1626W 148193 973813 949204 5 x 4 (1626W) SHEATH 5FR Terumo 1 KXG045 009376 114088 916392 5 Sciota (FNZ294) EMERALD Cardinal 1 502-455 104360 987282 601028 5 Guide Wire Health (502-455) MULTIPACK Cardinal 1 640955 5 Pigtail 5 Health Fr catheter MULTIPACK Cardinal 1 533953 5 JL 4.0 5Fr Health catheter MULTIPACK Cardinal 1 868049 5 3DRC 5Fr Health catheter SHEATH 6FR Terumo 1 WKX351 285036 372577 954764 40 Sciota (DZX114) GUIDE 6FR Cardinal 1 [id number] 132194 455020 920855 10 XBLAD 3.5 Health catheter ([id number]) CHOICE PT [place] 1 [id number] 736761 596277 055667 5 Extra Scientific Support 182cm wire ([id number]) INFLATOR Merit 1 PI8866 539897 629242 285400 15 [facility] Medical BasixCompak (QW7785) EUPHORA 2.5 Medtronic 1 [id number] 073532 482373 503850 5 [id number] x 20 Balloon ([id number]) EXOSEAL 6Fr Cardinal 1 EX600 766455 229646 900415 10 (EX600) Health Signature Audit [place] Stage Time Signature Unsigned Intra-Procedure 02/05/2020 Abhi Andrea 12:35:50 PM RT(R) (CV) Intra-Procedure 02/05/2020 Kristi Donis 12:36:35 PM RN Intra-Procedure 02/05/2020 Sergei Squires 12:37:09 PM [address] [address] [place] [address]
[~2020-02-05 09:02] MED LIST changes: -CELEXA20 MG PO; -PROCARDIA XL60 MG PO
[2020-02-05] MEDS ORDERED: CELEXA20 MG PO (09:47)
[2020-02-05] MEDS ORDERED: COREG6.25 MG PO (09:50)
[2020-02-05] MEDS ORDERED: PROCARDIA XL60 MG PO (09:52)
[2020-02-05 10:01] VITALS: BP 119/56; Ht 160 cm; Wt 65.9 kg
[2020-02-05 10:14] LABS: BASOPHILS 0.4 % (0-2); EOSINOPHILS 8.6 % (0-7); HEMATOCRIT 38.5 % (36.0-48.0); HEMOGLOBIN 12.7 g/dL (12-16); LYMPHOCYTES 37.1 % (15-50); MCH 31.1 pg (26.0-34.0); MCV 94.1 fL (80.0-100.0); MEAN PLATELET VOLUME 9.7 fL (7.4-10.4); MONOCYTES 7.3 % (2-11); NEUTROPHILS 46.6 % (40-80); PLATELET COUNT 169 10x3/uL (130-400); RBC 4.09 10x6/uL (4.00-5.40); RDW 13.2 % (11.5-14.5); WBC 5.5 10x3/uL (4.8-10.8)
[2020-02-05 10:29] LABS: ANION GAP 11.8 mmol/L (8-16); CALCIUM 8.4 mg/dL (8.5-10.1); CARBON DIOXIDE 25.5 mmol/L (21.0-32.0); CREATININE - SERUM 1.1 mg/dL (0.6-1.3); POTASSIUM - SERUM 4.3 mmol/L (3.5-5.1)
[2020-02-05 10:46] LABS: LDL-HDL RATIO 0.8 ratio (1.5-3.5)
--- NOTE | 2020-02-05 12:45 | NUR ---
REC TO ROOM VIA STRETCHER FROM LAB. R GROIN SOFT, TEGADERM AND 4X4 CDI, NO S/S BLEEDING OR HEMATOMA. PPP. MONITORING INITIATED. PT'S DTR AT BEDSIDE.
--- NOTE | 2020-02-05 13:15 | NUR ---
R GROIN CDI, NO S/S BLEEDING OR HEMATOMA. DTR AT BEDSIDE.
--- NOTE | 2020-02-05 14:01 | NUR ---
DR SHERIFF HERE SPEAKING W PT AND DTR
--- NOTE | 2020-02-05 14:01 | NUR ---
R GROIN CDI, NO S/S BLEEDING OR HEMATOMA PPP
--- NOTE | 2020-02-05 14:35 | NUR ---
R GROIN CDI, SOFT. NO S/S BLEEDING OR HEMATOMA. BP 121/58, SB 57, PPP.
--- NOTE | 2020-02-05 15:00 | NUR ---
R GROIN SOFT, CDI, NO S/S BLEEDING OR HEMATOMA. BP 118/55, SB 58. DTR AT BEDSIDE.
--- NOTE | 2020-02-05 15:30 | NUR ---
VOIDED LG AMT MEDIUM YELLOW URINE ON BEDPAN, ASSISTED TO PUT ON PANTIES W INCONTINENCE PAD AFTER LOW REMOVED. REPOSITIONED UP IN BED W HOB UP. PROVIDED COFFEE AND SANDWICH. R GROIN REMAINS SOFT, NO S/S BLEEDING OR HEMATOMA AFTER MOVING.
--- NOTE | 2020-02-05 16:05 | NUR ---
IV DC TIP INTACT, MONITORING DC. ASSISTED TO DRESS W HELP OF DAUGHTER. R GROIN REMAINS SOFT, NO S/S BLEEDING OR HEMATOMA. DISCHARGE INSTRUCTIONS REVIEWED W PT AND DAUGHTER.
--- NOTE | 2020-02-05 16:30 | NUR ---
PT DC HOME VIA WHEELCHAIR TO PRIVATE VEHICLE W DTR, PT HAS ALL BELONGINGS.
== END 2020-02-05 16:30 | disposition home or self-care (01) ==
LOC: D.CATH 09:02
PROVIDERS: ATTEND Internal Medicine Interventional Cardiology
DX: I25.119 Atherosclerotic heart disease of native coronary artery with unspecified angina pectoris (principal); I10 Essential (primary) hypertension; R06.09 Other forms of dyspnea; R07.9 Chest pain, unspecified

== ENCOUNTER → 2021-03-05 15:06 | Outpatient (CLI) | payer MEDICARE, BC ==
[2020-03-22 14:39] VITALS: BMI 29.2
[~2021-03-05 15:06] MED LIST changes: +CELEXA20 MG PO; +PROCARDIA XL60 MG PO
== END | disposition home or self-care (01) ==
LOC: D.MRI 15:00
PROVIDERS: ATTEND Family Medicine
DX: R51.9 Headache, unspecified (principal)

== ENCOUNTER → 2021-03-19 11:13 | Outpatient (CLI) | payer MEDICARE, BC ==
[2020-03-22 14:39] VITALS: BMI 29.2
== END | disposition home or self-care (01) ==
LOC: D.US 11:13
PROVIDERS: ATTEND Thoracic Surgery (Cardiothoracic Vascular Surgery)
DX: I65.23 Occlusion and stenosis of bilateral carotid arteries (principal)